=== PATIENT | female | born 1935 | race Caucasian/White ===

== ENCOUNTER 2019-08-12 10:28 | Outpatient (CLI) | payer MEDICARE ==
[2019-08-12 11:59] LABS: #Basophils 0.1 thou/uL (0.0-0.2); #Eosinphils 0.2 thou/uL (0.0-0.7); #Lymphocytes 2.3 thou/uL (1.20-3.40); #Monocytes 0.9 thou/uL (0.11-0.59); #Neutrophils 6.3 thou/uL (1.40-6.50); %Basophils 0.5 % (0.0-1.0); %Lymphocytes 23.8 % (21.0-51.0); %Monocytes 8.8 % (0.0-10.0); %Neutrophils 64.9 % (42.0-75.0); Hemoglobin 12.4 g/dL (12.0-16.0); Mean Corpuscular HGB CONC 33.4 g/dL (32.0-36.0); Mean Corpuscular Hemoglobin 29.7 pg (27.0-31.0); Mean Corpuscular Volume 88.8 fL (78.0-98.0); Mean Platelet Volume 7.1 fL (7.4-10.4); Platelet Count 307 thou/uL (130-400); RBC Distribution Width 12.3 % (11.5-14.5); Red Blood Cell (RBC) Count 4.17 mill/uL (4.20-5.40); White Blood Cell (WBC) Count 9.7 thou/uL (4.8-10.8)
[2019-08-12 12:28] LABS: ALT (SGPT) 11 U/L (8-55); AST (SGOT) 18 U/L (5-34); Albumin 4.1 g/dL (3.4-4.8); Alkaline Phosphatase 75 U/L (40-110); Anion Gap 12 mmol/L (10-20); BUN (Urea Nitrogen) 12 mg/dL (9.8-20.1); Bilirubin, Total 0.3 mg/dL (0.2-1.2); Calc. Creatinine Clearance 0 mL/min (70-130); Calcium 9.2 mg/dL (7.8-10.44); Carbon Dioxide 27 mmol/L (23-31); Chloride 96 mmol/L (98-107); Estimated GFR-MDRD 79; Globulin 3.4 g/dL (2.4-3.5); Glucose 88 mg/dL (83-110); Potassium 3.6 mmol/L (3.5-5.1); Protein, Total 7.5 g/dL (6.0-8.3); Sodium 131 mmol/L (136-145)
--- NOTE | 2019-08-14 23:10 | EKG ---
Test Reason : Blood Pressure : / mmHG Vent. Rate : 081 BPM Atrial Rate : 081 BPM P-R Int : 230 ms QRS Dur : 092 ms QT Int : 404 ms P-R-T Axes : 005 028 -03 degrees QTc Int : 469 ms Sinus rhythm with 1st degree A-V block Minimal voltage criteria for LVH, may be normal variant Cannot rule out Inferior infarct , age undetermined Abnormal ECG When compared with ECG of 22-FEB-2017 14:22, CO interval has increased Anterior infarct is now Present T wave inversion now evident in Anterior leads Confirmed by German RAJAN ([id number]) on 08/14/2019 11:09:49 PM Referred By: CORIN Confirmed By:German RAJAN
== END 2019-08-12 10:29 | disposition home or self-care (01) ==
LOC: LABBT 10:28
PROVIDERS: ATTEND Surgery
DX: Z01.818 Encounter for other preprocedural examination (principal); S81.852A Open bite, left lower leg, initial encounter
CPT/HCPCS: 80053; 85025; 87070; 87077; 87186; 87205; 93005; 93010

== ENCOUNTER 2019-08-13 05:37 | Day surgery (SDC) | payer MEDICARE ==
[2019-08-12 10:55] VITALS: BMI 33.4
[2019-08-13] MEDS ORDERED: Famotidine/PF 20 mg/2ml Vial ONE (06:49)
[2019-08-13] MEDS ORDERED: Fentanyl 100 MCG/2 ML VIAL ONE (07:03)
--- NOTE | 2019-08-13 11:01 | OP ---
DATE OF PROCEDURE: 08/13/2019 PREOPERATIVE DIAGNOSIS: Necrotic dog bite, left lower leg. PROCEDURE PERFORMED: Sharp debridement. INDICATIONS: This is an 83-year-old female, who is 5 weeks status post dog bite to the left lower leg, which she tried to treat at home with home remedies, became very foul smelling and deeper. Eventually, she sought medical attention. FINDINGS: A 15 x 10 cm necrotic wound to the left lower leg on the calf. This had necrosis all the way down to the muscle fascia. There were multiple tunnels of foul smelling necrotic tissue that had to be opened up. It was measured at 15 x 10 cm in diameter with a depth of 1.5 cm. DESCRIPTION OF PROCEDURE: After informed consent was obtained, the patient was taken to the operating room, given general mask anesthesia, placed in the lateral position. Her leg was prepped and draped in usual fashion. Using a curette, the necrotic tissue was removed. It gotten some pockets of purulent fluid. This was cultured, just a sequential removal of this tissue circumferentially. There were some tunnels that also were necrotic. The bridges were excised to open it up further. I got back to bleeding tissue circumferentially, then used the pulse cycle director to irrigate the wound. Hemostasis was achieved with electrocautery. Then, the wound VAC team placed a wound VAC. The patient tolerated the procedure well, transferred to Recovery in good condition. Job ID: [id number]
== END 2019-08-13 11:00 | disposition home or self-care (01) ==
LOC: SDC 05:37
PROVIDERS: ATTEND Surgery
PROC: 0KBT0ZZ Excision of Left Lower Leg Muscle, Open Approach (ICD-10-PCS; principal; 2019-08-13)
DX: S81.852A Open bite, left lower leg, initial encounter (principal); I96 Gangrene, not elsewhere classified; M19.90 Unspecified osteoarthritis, unspecified site; I10 Essential (primary) hypertension; K21.9 Gastro-esophageal reflux disease without esophagitis; Z79.82 Long term (current) use of aspirin; Z79.899 Other long term (current) drug therapy; Z88.2 Allergy status to sulfonamides; Z88.8 Allergy status to other drugs, medicaments and biological substances; Z98.890 Other specified postprocedural states; Z96.652 Presence of left artificial knee joint; W54.0XXA Bitten by dog, initial encounter
CPT/HCPCS: 87070; 87205; J0131; J0690; J3010; S0028

== ENCOUNTER 2019-08-15 07:48 | Outpatient (CLI) | payer MEDICARE ==
[2019-08-15] MEDS ORDERED: Sodium Chloride 0.9% 15 ML NEB ONE (18:00)
== END 2019-08-15 07:49 | disposition home or self-care (01) ==
LOC: WCC 07:48
PROVIDERS: ATTEND Family Medicine
DX: T81.89XD Other complications of procedures, not elsewhere classified, subsequent encounter (principal)
CPT/HCPCS: 97605; A4218

== ENCOUNTER 2019-08-18 10:01 | Outpatient (CLI) | payer MEDICARE ==
[2019-08-18] MEDS ORDERED: Sodium Chloride 0.9% 15 ML NEB ONE (18:00)
== END 2019-08-18 10:02 | disposition home or self-care (01) ==
LOC: WCC 10:01
PROVIDERS: ATTEND Family Medicine
DX: T81.89XD Other complications of procedures, not elsewhere classified, subsequent encounter (principal)
CPT/HCPCS: 97605; A4218

== ENCOUNTER 2019-08-21 08:08 | Outpatient (CLI) | payer MEDICARE ==
--- NOTE | 2019-08-21 12:44 | HP ---
HISTORY OF PRESENT ILLNESS: Ms. Estelle Villasenor is a very pleasant 83-year-old, accompanied by her son, who presents to the Wound Center for evaluation of a wound of the left lower leg subsequent to intraoperative debridement of a left lower leg wound from a dog bite. The patient underwent the preceding procedure on 08/13/[address] Darrel Stafford. Negative pressure therapy was initiated intraoperatively. At the time of discharge, the patient was referred to the Wound Center for assistance with dressing changes of the wound VAC. The patient states that she suffered the dog bite in July of this year. She states that when she sought medical attention from Dr. Subramanian, she was admitted immediately to [facility] where she received treatment for cellulitis. At a followup visit with Dr. Subramanian after discharge from [facility], the patient was referred immediately to General Surgery. The patient states that one day after being seen by Dr. Stafford, she underwent intraoperative debridement of her left lower leg wound as described above. PAST MEDICAL HISTORY: 1. Osteoarthritis. 2. Hypertension. 3. Gastroesophageal reflux disease. 4. Chronic low back pain. PAST SURGICAL HISTORY: 1. Tonsillectomy. 2. Uterine suspension. 3. Hysterectomy. 4. Surgery for right foot spur. 5. Surgery for left foot spur. 6. Arthroscopic surgery of right knee. 7. Left total knee arthroplasty. 8. Cholecystectomy. 9. Back surgery. 10. Bladder surgery. 11. Hemorrhoid surgery x2. 12. Right carpal tunnel surgery. 13. Left carpal tunnel surgery. 14. Left eye surgery. 15. Right eye surgery. 16. Right shoulder surgery. 17. L3 through L5 laminectomy. 18. Intraoperative debridement of left lower leg wound from dog bite as per HPI. MEDICATIONS: 1. Gabapentin. 2. Celecoxib. 3. Hydrochlorothiazide. 4. Premarin. 5. Potassium. 6. Omeprazole. 7. Amlodipine. 8. Iron. 9. Alprazolam. 10. Aspirin 81 mg. 11. Fish oil. 12. Multivitamin. 13. Calcium. ALLERGIES: ATENOLOL, FENOFIBRATE, LIDOCAINE, SULFA. SOCIAL HISTORY: Social history is negative for tobacco or EtOH use. FAMILY HISTORY: Family history is negative for diabetes mellitus. Family history is significant for coronary artery disease. The patient's mother and son were both diagnosed with coronary artery disease. PHYSICAL EXAMINATION: VITAL SIGNS: Temperature 97.7, pulse 81, respirations 19, and blood pressure 176/81. GENERAL: An 83-year-old female, lying on table in examination room, in no acute distress. HEENT: Normocephalic, atraumatic. NECK: No nuchal rigidity. CHEST: Clear to auscultation. CARDIOVASCULAR: Regular rate and rhythm. ABDOMEN: Soft. EXTREMITIES: A wound of the left lower leg is present, which measures approximately 7.0 x 4.5 cm. Granulation tissue is present within the wound margins. Necrotic and nonviable tissue present within the wound margin was debrided with an excisional full-thickness debridement with the use of scissors and a curette. No purulent drainage is associated with the wound. No cellulitis of the left lower leg is appreciated. No maceration of the skin of the periwound is noted. No significant edema of the left foot or lower leg is present on exam today. NEUROLOGIC: Grossly nonfocal. ASSESSMENT AND PLAN: 1. Wound of left lower leg as described above. Negative pressure therapy will be continued with dressing changes of the wound VAC here in the Wound Center. No antibiotics will be prescribed today based upon the appearance of the wound. I will see Ms. Villasenor again in 1 week. The patient and her son understand and are in agreement with the preceding treatment plan. 2. Osteoarthritis. 3. Hypertension. 4. Gastroesophageal reflux disease. 5. Chronic low back pain. Job ID: [id number]
[2019-08-21] MEDS ORDERED: Sodium Chloride 0.9% 15 ML NEB ONE (16:34)
[2019-08-21] MEDS ORDERED: Lidocaine 2% PF 100 mg/5 ml Syringe ONE (16:34)
== END 2019-08-21 08:09 | disposition home or self-care (01) ==
LOC: WCC 08:08
PROVIDERS: ATTEND Family Medicine
DX: T81.89XD Other complications of procedures, not elsewhere classified, subsequent encounter (principal); M19.90 Unspecified osteoarthritis, unspecified site; I10 Essential (primary) hypertension; K21.9 Gastro-esophageal reflux disease without esophagitis; M54.5 Low back pain; G89.29 Other chronic pain
CPT/HCPCS: 11042; 11045; 99203; A4218; G0463; J2001

== ENCOUNTER 2019-08-25 11:02 | Outpatient (CLI) | payer MEDICARE ==
[~2019-08-25 11:02] MED LIST: Sodium Chloride 0.9% 15 ML NEB ONE
== END 2019-08-25 11:03 | disposition home or self-care (01) ==
LOC: WCC 11:02
PROVIDERS: ATTEND Family Medicine
DX: T81.89XD Other complications of procedures, not elsewhere classified, subsequent encounter (principal)
CPT/HCPCS: A4218

== ENCOUNTER 2019-08-28 07:57 | Outpatient (CLI) | payer MEDICARE ==
[2019-08-28] MEDS ORDERED: Sodium Chloride 0.9% 15 ML NEB ONE (09:00)
== END 2019-08-28 07:58 | disposition home or self-care (01) ==
LOC: WCC 07:57
PROVIDERS: ATTEND Family Medicine
DX: T81.89XD Other complications of procedures, not elsewhere classified, subsequent encounter (principal)
CPT/HCPCS: A4218

== ENCOUNTER 2019-09-01 11:14 | Outpatient (CLI) | payer MEDICARE ==
[2019-09-01] MEDS ORDERED: Sodium Chloride 0.9% 15 ML NEB ONE (15:00)
== END 2019-09-01 11:15 | disposition home or self-care (01) ==
LOC: WCC 11:14
PROVIDERS: ATTEND Family Medicine
DX: T81.89XD Other complications of procedures, not elsewhere classified, subsequent encounter (principal)
CPT/HCPCS: A4218

== ENCOUNTER 2019-09-04 07:48 | Outpatient (CLI) | payer MEDICARE ==
[2019-09-04] MEDS ORDERED: Sodium Chloride 0.9% 15 ML NEB ONE (16:22)
== END 2019-09-04 07:49 | disposition home or self-care (01) ==
LOC: WCC 07:48
PROVIDERS: ATTEND Family Medicine
DX: T81.89XD Other complications of procedures, not elsewhere classified, subsequent encounter (principal)
CPT/HCPCS: 97605; A4218

== ENCOUNTER 2019-09-09 07:56 | Outpatient (CLI) | payer MEDICARE ==
[2019-09-09] MEDS ORDERED: Sodium Chloride 0.9% 15 ML NEB ONE (09:00)
== END 2019-09-09 07:57 | disposition home or self-care (01) ==
LOC: WCC 07:56
PROVIDERS: ATTEND Family Medicine
DX: T81.89XD Other complications of procedures, not elsewhere classified, subsequent encounter (principal)
CPT/HCPCS: A4218

== ENCOUNTER 2019-09-12 11:34 | Outpatient (CLI) | payer MEDICARE | END 2019-09-12 11:35 | disposition home or self-care (01) | LOC: WCC 11:34 | PROVIDERS: ATTEND Family Medicine | DX: T81.89XD Other complications of procedures, not elsewhere classified, subsequent encounter (principal) | CPT/HCPCS: A4218 ==

== ENCOUNTER 2019-09-15 08:35 | Outpatient (CLI) | payer MEDICARE ==
[2019-09-15] MEDS ORDERED: Sodium Chloride 0.9% 15 ML NEB ONE (09:00)
== END 2019-09-15 08:36 | disposition home or self-care (01) ==
LOC: WCC 08:35
PROVIDERS: ATTEND Family Medicine
DX: T81.89XD Other complications of procedures, not elsewhere classified, subsequent encounter (principal)
CPT/HCPCS: A4218

== ENCOUNTER 2019-12-06 20:39 | Inpatient (IN) | payer MEDICARE ==
[2019-12-06] MEDS ORDERED: Cefepime 2 GM VIAL ONE (21:32)
--- NOTE | 2019-12-06 21:36 | RAD ---
Chest AP view INDICATION: Chest pain COMPARISON: Chest 2 views dated March 10, 2015 FINDINGS: Lungs:There is scattered interstitial prominence, similar to prior examination suspicious for compone nt of fibrosis. There is a prominent hiatal hernia. No definite consolidation is evident. Cardiac silhouette:There is moderate cardiomegaly which is stable. Pulmonary vasculature:There is moderate pulmonary vascular congestion Pleural spaces:There are small bilateral pleural effusions Upper abdomen:No abnormality seen. Osseous structures: There is a right total shoulder replacement which is new. No acute fracture or mijares bluxation demonstrated. Additional findings:None. IMPRESSION: Findings suggesting mild CHF. Prominent hiatal hernia. Chronic lung changes are similar a ppearing
[2019-12-06 21:45] LABS: Hemoglobin 12.5 g/dL (12.0-16.0); Mean Corpuscular HGB CONC 32.1 g/dL (32.0-36.0); Mean Corpuscular Hemoglobin 28.8 pg (27.0-31.0); Mean Corpuscular Volume 89.6 fL (78.0-98.0); Mean Platelet Volume 7.4 fL (7.4-10.4); Platelet Count 230 thou/uL (130-400); RBC Distribution Width 13.3 % (11.5-14.5); Red Blood Cell (RBC) Count 4.35 mill/uL (4.20-5.40); White Blood Cell (WBC) Count 17.6 thou/uL (4.8-10.8)
[2019-12-06 22:02] LABS: Band 20 % (5-11); Lymphocytes 1 % (21-51); MDiff Complete? YES; Monocytes 1 % (0-10); Neutrophil 78 % (42-75)
[2019-12-06 22:03] LABS: ALT (SGPT) 16 U/L (8-55); AST (SGOT) 21 U/L (5-34); Albumin 3.7 g/dL (3.4-4.8); Alkaline Phosphatase 99 U/L (40-110); Anion Gap 14 mmol/L (10-20); BUN (Urea Nitrogen) 14 mg/dL (9.8-20.1); Bilirubin, Total 0.8 mg/dL (0.2-1.2); CK (CPK) 83 U/L (29-168); Calc. Creatinine Clearance 0 mL/min (70-130); Calcium 8.8 mg/dL (7.8-10.44); Carbon Dioxide 24 mmol/L (23-31); Chloride 96 mmol/L (98-107); Estimated GFR-MDRD 71; Globulin 2.9 g/dL (2.4-3.5); Glucose 97 mg/dL (83-110); Lipase 9 U/L (8-78); Potassium 3.2 mmol/L (3.5-5.1); Protein, Total 6.6 g/dL (6.0-8.3); Sodium 131 mmol/L (136-145)
[2019-12-06 22:24] LABS: CKMB 1.3 ng/mL (0-6.6)
[2019-12-06 23:08] LABS: Bilirubin Negative (Negative); Blood, Urine 1+ (Negative); Clarity Turbid (Clear); Glucose, Urine (Dipstick) Normal (Negative); Leukocyte 500 Leu/uL (Negative); Nitrite 1+ (Negative); Protein, Urine (Dipstick) 100 mg/dL (Neg-Trace); Squamous Epithelial 0-3 HPF (0-3); Urobilinogen Normal mg/dL (Less than 2); WBC/HPF Greater than 50 HPF (0-3)
[2019-12-06 23:18] LABS: Bacteria/HPF 1+ HPF (None Seen); Renal Epithelial 0-3 HPF (None Seen)
[2019-12-06] MEDS ORDERED: Acetaminophen 325 MG TAB PO PRN (23:20)
[2019-12-06] MEDS ORDERED: Calcium Carbonate 500 MG ChewTAB PO PRN (23:20)
[2019-12-06] MEDS ORDERED: Ondansetron ODT 4 MG TAB PO PRN (23:20)
--- NOTE | 2019-12-06 23:28 | PDOC.FPRHP ---
- History of Present Illness Chief Complaint: abdominal pain History of Present Illness: Patient is an 84F with PMHX of HTN, HLD, GERD, OA, chronic back pain that presents with abdominal pain. Per patient patient she has been having dysuria for the last 3 weeks that she was treating at home with Azo, and abdominal pain for the last several days. She also endorses subjective fever and chills yesterday. She denies any symptoms of cp, sob, swelling. She denies hematuria. She endorses looser stools than normal the last few days. Patient wears pads chronically for incontinence. ED Course: 1g vanc, 2g cefepime, 30ml/kg NS - Allergies/Adverse Reactions Allergies Allergy/AdvReac Type Severity Reaction Status Date / Time fenofibrate Allergy Unknown Headache Verified 08/12/19 10:55 Sulfa (Sulfonamide Allergy Unknown Verified 08/12/19 10:55 Antibiotics) atenolol AdvReac Unknown Verified 08/12/19 10:55 benzonatate AdvReac Unknown Verified 08/12/19 10:55 [From Tessalon Perles] lidocaine AdvReac Unknown Verified 08/12/19 10:55 mometasone furoate AdvReac Unknown Verified 08/12/19 10:55 [From Nasonex] orphenadrine AdvReac Unknown Verified 08/12/19 10:55 - Home Medications Medication Instructions Recorded Confirmed Type ALPRAZolam [Xanax] 0.5 mg PO DAILY PRN 03/11/15 12/07/19 History Aspirin [Mumtaz Chewable Aspirin] 81 mg PO DAILY 03/11/15 12/07/19 History Celecoxib [Celebrex] 200 mg PO DAILY 03/11/15 12/07/19 History Hydrochlorothiazide 1 tab PO DAILY 03/11/15 12/07/19 History Potassium Chloride 10 meq PO DAILY 03/11/15 12/07/19 History Amlodipine Besylate [amLODIPine 2.5 mg PO DAILY 02/22/17 12/07/19 History Besylate] Gabapentin 1 cap PO HS 02/22/17 12/07/19 History [place]-3/DHA/EPA/Fish Oil [Fish Oil 1 cap PO DAILY 02/22/17 12/07/19 History 1,000 mg Softgel] Omeprazole 50 mg PO DAILY 02/22/17 12/07/19 History Ferrous Gluconate [Iron] 27 mg PO DAILY 07/23/19 12/07/19 History Multivit With Calcium,Iron,Min 1 tablet PO DAILY 07/23/19 12/07/19 History [Multiple Vitamins For Women] Calcium Carbonate/Vitamin D3 1 tablet PO DAILY 08/12/19 12/07/19 History [Calcium 600 + Vitamin D] Rosuvastatin Calcium [Crestor] 20 mg PO DAILY 12/07/19 12/07/19 History - History PMHx: HTN, HLD, GERD, OA, chronic back pain PSHx: tonsillectomy, uterus lift, hysterectomy, L knee replacement, R ft sx, L ft sx, cholecystectomy, cardiac cath, back sx (multiple), carpal tunnel release r&l, eye sx r&l,R rotary cuff sx, cardiac cath FHx: non-contributory Social:no smoking, no etoh, no drugs - Review of Systems General: reports: fever/chills. denies: weight/appetite/sleep changes Eyes: denies: eye pain, vision changes ENT: denies: nasal congestion, rhinorrhea Respiratory: denies: cough, shortness of breath Cardiovascular: denies: chest pain, edema Gastrointestinal: reports: diarrhea, abdominal pain. denies: nausea, vomiting Genitourinary: reports: incontinence (chronic), dysuria Skin: denies: rashes, lesions Musculoskeletal: reports: pain (chronic back pain) Neurological: denies: syncope, seizure Psychological: denies: anxiety, depression - Vital signs BP: [107/50] HR: [110] RR: [18] Tmax: [99.9] Pox: [94]% on [RA] Wt: [75.4kg] - Physical Exam Constitutional: NAD, awake, alert and oriented HEENT: normocephalic and atraumatic, EOMI, MMM Neck: supple, FROM Chest: no-tender to palpation, no lesions Heart: RRR, normal S1/S2 Lungs: CTAB, no respiratory distress Abdomen: soft, bowel sounds present, other (ttp) Musculoskeletal: normal structure, normal tone Neurological: no focal deficit, normal sensation Skin: no rash/lesions, good turgor Heme/Lymphatic: no unusual bruising or bleeding, no purpura Psychiatric: normal mood and affect, good judgment and insight FMR H&P: Results - Labs Result Diagrams: 12/06/19 21:30 12/06/19 21:30 Lab results: WBC 17.6 thou/uL (4.8-10.8) H 12/06/19 21:30 Hgb 12.5 g/dL (12.0-16.0) 12/06/19 21:30 Hct 39.0 % (36.0-47.0) 12/06/19 21:30 MCV 89.6 fL (78.0-98.0) 12/06/19 21:30 Plt Count 230 thou/uL (130-400) 12/06/19 21:30 Band Neuts % (Manual) 20 % (5-11) H 12/06/19 21:30 Sodium 131 mmol/L (136-145) L 12/06/19 21:30 Potassium 3.2 mmol/L (3.5-5.1) L 12/06/19 21:30 Chloride 96 mmol/L (98-107) L 12/06/19 21:30 Carbon Dioxide 24 mmol/L (23-31) 12/06/19 21:30 BUN 14 mg/dL (9.8-20.1) 12/06/19 21:30 Creatinine 0.78 mg/dL (0.6-1.1) 12/06/19 21:30 Glucose 97 mg/dL (83-110) 12/06/19 21:30 Lactic Acid 1.7 mmol/L (0.5-2.2) 12/06/19 21:30 Calcium 8.8 mg/dL (7.8-10.44) 12/06/19 21:30 Total Bilirubin 0.8 mg/dL (0.2-1.2) 12/06/19 21:30 AST 21 U/L (5-34) 12/06/19 21:30 ALT 16 U/L (8-55) 12/06/19 21:30 Alkaline Phosphatase 99 U/L (40-110) 12/06/19 21:30 Creatine Kinase 83 U/L (29-168) 12/06/19 21:30 CK-MB (CK-2) 1.3 ng/mL (0-6.6) 12/06/19 21:30 B-Natriuretic Peptide 217.5 pg/mL (0-100) H 12/06/19 21:30 Serum Total Protein 6.6 g/dL (6.0-8.3) 12/06/19 21:30 Albumin 3.7 g/dL (3.4-4.8) 12/06/19 21:30 Lipase 9 U/L (8-78) 12/06/19 21:30 Urine Ketones Negative mg/dL (Negative) 12/06/19 22:51 Urine Blood 1+ (Negative) A 12/06/19 22:51 Urine Nitrite 1+ (Negative) A 12/06/19 22:51 Ur Leukocyte Esterase 500 Cee/uL (Negative) A 12/06/19 22:51 Urine RBC 7-10 HPF (0-3) A 12/06/19 22:51 Urine WBC Greater than 50 HPF (0-3) A 12/06/19 22:51 Ur Squamous Epith Cells 0-3 HPF (0-3) 12/06/19 22:51 Urine Bacteria 1+ HPF (None Seen) A 12/06/19 22:51 - Radiology Interpretation Chest x-ray Status: report reviewed by me (Mild CHF. Prominent hiatal hernia) FMR H&P: A/P - Problem List (1) Sepsis Current Visit: Yes Status: Resolved Code(s): A41.9 - SEPSIS, UNSPECIFIED ORGANISM (2) UTI (urinary tract infection) Current Visit: Yes Status: Acute (3) Hypokalemia Current Visit: Yes Status: Acute Code(s): E87.6 - HYPOKALEMIA (4) Chronic back pain Current Visit: Yes Status: Chronic Code(s): M54.9 - DORSALGIA, UNSPECIFIED; G89.29 - OTHER CHRONIC PAIN (5) HLD (hyperlipidemia) Current Visit: Yes Status: Chronic Code(s): E78.5 - HYPERLIPIDEMIA, UNSPECIFIED (6) Osteoarthritis Current Visit: Yes Status: Chronic Code(s): M19.90 - UNSPECIFIED OSTEOARTHRITIS, UNSPECIFIED SITE (7) GERD (gastroesophageal reflux disease) Current Visit: No Status: Chronic Code(s): K21.9 - GASTRO-ESOPHAGEAL REFLUX DISEASE WITHOUT ESOPHAGITIS (8) HTN (hypertension) Current Visit: No Status: Chronic Code(s): I10 - ESSENTIAL (PRIMARY) HYPERTENSION (9) Elevated troponin Current Visit: Yes Status: Acute Code(s): R79.89 - OTHER SPECIFIED ABNORMAL FINDINGS OF BLOOD CHEMISTRY - Plan Patient is an 84F with PMHX of HTN, HLD, GERD, OA, chronic back pain that is admitted for sepsis 2/2 UTI #Sepsis 2/2 UTI -patient has had dysuria for 3 weeks, treated with Azo at home -patient has had abd pain for last several days, subjective fever and chills x1- 2 days -WBC 17.6, tachycardic on admission -UA shows WBC, LE, Bacteria -started on vanc and cefepime in ED -will start on ceftriaxone -urine and blood cultures pending, will follow #Hypokalemia -potassium 3.2 -will replete and monitor #Elevated troponins -trop 0.087 -patient denies chest pain -will trend, though likely due to sepsis #HTN -BP 100s systolic, will hold home bp meds for now #HLD -continue home meds #GERD -continue home meds #OA #Chronic back pain -continue home meds Diet: HH DVT ppx: SCDs Dispo: obs for IV abx and monitoring; urine culture pending, will continue ceftriaxone and alter abx accordingly Code: Full pending palliative care consult PCP: Marilynn FMR H&P: Upper Level - Pertinent history 84 yo F here for evaluation of malaise for the last 3 days. She denies associated fever, but notes chills. She also complains of dysuria for about 3 weeks. She has been taking Azo daily to help with the pain, however she has not seen her PCP, Dr Subramanian, about symptoms. In the ER, labs were not completely resulted at the time of admission, however she was tachycardic and had a leukocystosis. She was given Vanc and Cefepime and admitted. Following admission UA showed positive LE, WBCs and bacteria. PMHx HTN GERD OA Anxiety Neuropathy FHx non contributory Social Hx No tobacco, etoh, or drugs - Pertinent findings See grad intern note for full ROS, PE, vitals, and labs ROS General Complains of chills and malaise. Denies fever HEENT denies sore throat or ear pain CV Denies CP, diaphoresis or palpitations Resp Denies SOB or cough GI Complains of lower abdominal pain. Denies n/v complains of dysuria Neuro denies weakness or numbness. PE General A&O x4 HEENT NCAT CV RRR, no murmur Resp CTA Abd suprapubic tenderness. No CVAT. Abd is soft. No guarding Extremities No edema Neuro no focal deficits - Plan Date/Time: 12/06/19 5121 I, Darrel Berry, , have evaluated this patient and agree with findings/plan as outlined by grad intern resident. Pertinent changes/additions are listed here. 1.Sepsis secondary to UTI -Admit to medicine -Start Rocephin, dc vanc and cefepime -Blood and urine cx pending -IVF -Vitals are stable 2.Elevated trop -Likely related to sepsis. Will trend. No CP, low concern for ACS 3.Hypokalemia -Replace PO and recheck in am See grad intern note for management of chronic meds Diet Heart healthy Code Full pending palliative care consult PPx SCD Dispo: pt is in fair condition. Will admit for IV abx. Length of stay is likely 48 hours Addendum - Attending - Attending Attestation Date/Time: 12/07/19 9042 I personally evaluated the patient and discussed the management with Dr. Crockett. I agree with the History, Examination, Assessment and Plan documented above with any addition or exceptions noted below. The patient presents with abdominal pain and urinary frequency and urgency. The patient has been found to have a UTI. Urine culture is pending. Will treat with rocephin. Pt with no clinical sings of volume overload.
[2019-12-06] MEDS ORDERED: Potassium Chloride 20 MEQ TAB PO SCH (23:45)
[2019-12-07 01:22] VITALS: BMI 25.2
[2019-12-07 01:51] LABS: Troponin I 0.088 ng/mL (< 0.028)
[2019-12-07] MEDS ORDERED: Potassium Chloride 10 MEQ TAB PO SCH (08:00)
[2019-12-07] MEDS: Aspirin Chewable 81 MG TAB PO SCH (08:22)
[2019-12-07] MEDS: Calcium Carbonate + Vit D 1 TAB PO SCH (08:25)
[2019-12-07] MEDS: CeleCOXIB 100 MG CAP PO SCH (08:25)
[2019-12-07] MEDS: Multivitamin W/ Minerals 1 TAB PO SCH (08:26)
[2019-12-07] MEDS: Rosuvastatin 20 MG TAB PO SCH (08:26)
--- NOTE | 2019-12-07 08:42 | PDOC.FM ---
- Subjective Subjective: 84 yo female seen at bedside this AM. Patient reports she feels well and slept well overnight. She notes that she enjoyed the urination suction device. She reports that she has a doctor's appointment on Sunday afternoon that she can't miss. No other acute events overnight. - Objective Vital Signs & Weight: Vital Signs (12 hours) Temp Pulse Resp BP Pulse Ox 12/07/19 07:27 98.7 F 105 H 16 138/75 94 L 12/07/19 03:47 98.1 F 86 16 116/65 95 12/07/19 01:19 98.2 F 111 H 18 102/61 94 L Weight Weight 75.432 kg Result Diagrams: 12/06/19 21:30 12/07/19 09:02 Phys Exam - Physical Examination Constitutional: NAD HEENT: PERRLA Respiratory: no wheezing, clear to auscultation bilateral Cardiovascular: RRR, no significant murmur Gastrointestinal: soft, non-tender, positive bowel sounds Musculoskeletal: no edema Neurological: moves all 4 limbs Psychiatric: A&O x 3 Skin: no rash, cap refill <2 seconds Dx/Plan (1) Sepsis Code(s): A41.9 - SEPSIS, UNSPECIFIED ORGANISM Status: Resolved (2) UTI (urinary tract infection) Status: Acute (3) HTN (hypertension) Code(s): I10 - ESSENTIAL (PRIMARY) HYPERTENSION Status: Chronic (4) Hypokalemia Code(s): E87.6 - HYPOKALEMIA Status: Acute - Plan Plan: Sepsis 2/2 UTI - Sepsis resolved - Continue Rocephin - Urine culture pending HTN - BP meds held initially due to hypotension - Restart when appropriate Hypokalemia - Repleted overnight - Recheck BMP Disposition: Stable, will await culture results for likely discharge tomorrow. Addendum - Attending - Attending Attestation Date/Time: 12/07/19 4098 I personally evaluated the patient and discussed the management with Dr. Gongora. I agree with the History, Examination, Assessment and Plan documented above with any addition or exceptions noted below. Pt's blood cultures are now positive for e-coli. Pt has bacteremia 2/2 e.coli uti. Will continue rocephin. Awaiting sensitivities.
[2019-12-07] MEDS ORDERED: Fish Oil 1,000 MG CAP PO SCH (09:00)
[2019-12-07] MEDS: cefTRIAXone\\ROCEPHIN 1 GM in Sodium Chloride 0.9% 100 ML IVPB SCH (09:27)
[2019-12-07 09:35] LABS: Anion Gap 10 mmol/L (10-20); BUN (Urea Nitrogen) 13 mg/dL (9.8-20.1); Calc. Creatinine Clearance 75 mL/min (70-130); Carbon Dioxide 26 mmol/L (23-31); Chloride 100 mmol/L (98-107); Estimated GFR-MDRD 81; Glucose 89 mg/dL (83-110); Potassium 3.2 mmol/L (3.5-5.1); Sodium 133 mmol/L (136-145)
[2019-12-07] MEDS: Fish Oil 1,000 MG CAP PO SCH (10:41)
[2019-12-07] MEDS: Gabapentin 300 MG CAP PO SCH (20:02)
--- NOTE | 2019-12-08 06:44 | PDOC.FM ---
- Subjective Subjective: Not feeling very good this morning. No overnight events. Reports decreased appetite. Denies dysuria, SOB. - Objective MAR Reviewed: Yes Vital Signs & Weight: Vital Signs (12 hours) Temp Pulse Resp BP Pulse Ox 12/08/19 00:02 99.1 F 95 16 149/72 H 93 L 12/07/19 19:44 99.2 F 91 16 149/73 H 92 L Weight Weight 75.432 kg I&O: 12/06/19 12/07/19 12/08/19 06:59 06:59 06:59 Intake Total 340 Output Total 250 Balance 90 Result Diagrams: 12/06/19 21:30 12/08/19 07:26 Phys Exam - Physical Examination Constitutional: NAD HEENT: moist MMs Neck: supple bibasilar crackles Cardiovascular: RRR, no significant murmur Gastrointestinal: soft, non-tender Musculoskeletal: pulses present Neurological: moves all 4 limbs Psychiatric: normal affect, A&O x 3 Skin: normal turgor Dx/Plan - Plan Plan: E coli UTI - Transition from Rocephin to Cefdinir for extended course. - Urine culture & Blood Cx: E coli resistant to Bactrim, Ampicillin. Int: Augmentin Sepsis 2/2 E coli Bacterimia - Sepsis resolved E coli Bacterimeia - Manage as above HTN - Resume home meds Hypokalemia - 3.0. Ordered Mg. Replace with PO Code Status: FULL DVT ppx: SCDs
[2019-12-08 08:04] LABS: Anion Gap 10 mmol/L (10-20); BUN (Urea Nitrogen) 13 mg/dL (9.8-20.1); Calc. Creatinine Clearance 76 mL/min (70-130); Calcium 8.3 mg/dL (7.8-10.44); Carbon Dioxide 25 mmol/L (23-31); Chloride 101 mmol/L (98-107); Estimated GFR-MDRD 83; Glucose 87 mg/dL (83-110); Sodium 133 mmol/L (136-145)
[2019-12-08] MEDS ORDERED: Amlodipine 5 MG TAB PO SCH (09:00)
[2019-12-08] MEDS: Fish Oil 1,000 MG CAP PO SCH (09:25)
[2019-12-08] MEDS: Ferrous Sulfate 325 MG TAB PO SCH (09:25)
[2019-12-08] MEDS: Hydrochlorothiazide 25 MG TAB PO SCH (09:25)
[2019-12-08] MEDS: CeleCOXIB 100 MG CAP PO SCH (09:25)
[2019-12-08] MEDS: Rosuvastatin 20 MG TAB PO SCH (09:25)
[2019-12-08] MEDS: Aspirin Chewable 81 MG TAB PO SCH (09:26)
[2019-12-08] MEDS: Multivitamin W/ Minerals 1 TAB PO SCH (09:26)
[2019-12-08] MEDS: Calcium Carbonate + Vit D 1 TAB PO SCH (09:27)
[2019-12-08] MEDS ORDERED: Potassium Chloride 20 MEQ TAB PO SCH (11:00)
--- NOTE | 2019-12-08 11:14 | PRG ---
DATE OF SERVICE: 12/08/2019 SUBJECTIVE: Ms. Villasenor is a pleasant 84-year-old white female, who was admitted with symptoms of urinary tract infection including initially a high fever and white count. She subsequently grew E. coli from urine and blood. She has been started on broad-spectrum antibiotics i.e. Rocephin and is much improved. Her white count is 17,600, hemoglobin 12.5, hematocrit is 39. Chemistries; sodium 131, potassium 3.2, chloride 96, bicarb 24, BUN 14, and creatinine 0.78. Her urinalysis initially showed positive blood, positive nitrites, positive leukocyte esterase, greater than 50 white cells per high-power field. As stated above, grew out E. coli. Subsequent blood culture also grew out E. coli. She does have a left knee prosthesis, so I think we should give her another day of IV antibiotics before discharge. She was admitted with a high fever dropping down at 99, currently 98.8. Clinically, she looks improved as well. Job ID: [id number]
[2019-12-08] MEDS: cefTRIAXone\\ROCEPHIN 1 GM in Sodium Chloride 0.9% 100 ML IVPB SCH (11:25)
[2019-12-08] MEDS ORDERED: Magnesium 2 GM/50 ML 2 GM in Premix Bag 1 BAG IVPB SCH (12:45)
[2019-12-08] MEDS: Potassium Chloride 20 MEQ TAB PO SCH (17:38)
[2019-12-08] MEDS: Gabapentin 300 MG CAP PO SCH (20:01)
[2019-12-09 05:12] LABS: #Eosinphils 0.1 thou/uL (0.0-0.7); #Lymphocytes 1.5 thou/uL (1.20-3.40); #Monocytes 1.1 thou/uL (0.11-0.59); #Neutrophils 6.5 thou/uL (1.40-6.50); %Basophils 0.4 % (0.0-1.0); %Eosinophils 0.7 % (0.0-10.0); %Lymphocytes 16.2 % (21.0-51.0); %Monocytes 11.5 % (0.0-10.0); %Neutrophils 71.3 % (42.0-75.0); Hemoglobin 11.5 g/dL (12.0-16.0); Mean Corpuscular HGB CONC 33.4 g/dL (32.0-36.0); Mean Corpuscular Hemoglobin 29.3 pg (27.0-31.0); Mean Corpuscular Volume 87.8 fL (78.0-98.0); Mean Platelet Volume 7.5 fL (7.4-10.4); Platelet Count 200 thou/uL (130-400); RBC Distribution Width 13.2 % (11.5-14.5); Red Blood Cell (RBC) Count 3.94 mill/uL (4.20-5.40); White Blood Cell (WBC) Count 9.2 thou/uL (4.8-10.8)
[2019-12-09 05:39] LABS: Anion Gap 11 mmol/L (10-20); BUN (Urea Nitrogen) 9 mg/dL (9.8-20.1); Calc. Creatinine Clearance 79 mL/min (70-130); Calcium 8.6 mg/dL (7.8-10.44); Carbon Dioxide 27 mmol/L (23-31); Chloride 96 mmol/L (98-107); Estimated GFR-MDRD 87; Glucose 110 mg/dL (83-110); Magnesium 1.5 mg/dL (1.6-2.6); Potassium 3.8 mmol/L (3.5-5.1); Sodium 130 mmol/L (136-145)
--- NOTE | 2019-12-09 06:50 | PDOC.FM ---
- Subjective Subjective: Doing well. No overnight events. Feeling a little weak. Ate a good breakfast. Incontinent of urine which is her baseline. BM yesterday. - Objective MAR Reviewed: Yes Vital Signs & Weight: Vital Signs (12 hours) Temp Pulse Resp BP Pulse Ox 12/09/19 03:00 99.0 F 82 16 158/80 H 93 L 12/08/19 20:00 98.7 F 83 18 166/80 H 94 L Weight Weight 75.432 kg I&O: 12/07/19 12/08/19 12/09/19 06:59 06:59 06:59 Intake Total 1040 1460 Output Total 650 1600 Balance 390 -140 Result Diagrams: 12/09/19 04:43 12/09/19 04:43 Phys Exam - Physical Examination Constitutional: NAD HEENT: moist MMs Neck: supple Respiratory: no wheezing, clear to auscultation bilateral Cardiovascular: RRR, no significant murmur Gastrointestinal: soft, non-tender Musculoskeletal: no edema Neurological: moves all 4 limbs Psychiatric: normal affect, A&O x 3 Skin: normal turgor Dx/Plan - Plan Plan: E coli UTI - Transition from Rocephin to Cefdinir for extended course. Likely dc today. - Urine culture & Blood Cx: E coli resistant to Bactrim, Ampicillin. Int: Augmentin Sepsis 2/2 E coli Bacterimia - Sepsis resolved E coli Bacterimeia - Manage as above HTN - Continue home meds Hypomagnesemia - Continue IV replacement Hypokalemia, resolved Code Status: FULL DVT ppx: SCDs
[2019-12-09] MEDS ORDERED: Magnesium Sulfate 3 GM in Sodium Chloride 0.9% 100 ML IVPB SCH (07:00)
[2019-12-09] MEDS: Fish Oil 1,000 MG CAP PO SCH (08:52)
[2019-12-09] MEDS: Potassium Chloride 20 MEQ TAB PO SCH (08:52)
[2019-12-09] MEDS: CeleCOXIB 100 MG CAP PO SCH (08:52)
[2019-12-09] MEDS: Ferrous Sulfate 325 MG TAB PO SCH (08:52)
[2019-12-09] MEDS: Hydrochlorothiazide 25 MG TAB PO SCH (08:53)
[2019-12-09] MEDS: Rosuvastatin 20 MG TAB PO SCH (08:53)
[2019-12-09] MEDS: Multivitamin W/ Minerals 1 TAB PO SCH (08:53)
[2019-12-09] MEDS: Calcium Carbonate + Vit D 1 TAB PO SCH (08:54)
[2019-12-09] MEDS: Aspirin Chewable 81 MG TAB PO SCH (08:54)
[2019-12-09] MEDS ORDERED: Cefdinir 300 MG CAP PO SCH (09:00)
[2019-12-09] MEDS ORDERED: Amlodipine 5 MG TAB PO SCH (09:00)
--- NOTE | 2019-12-09 10:31 | PRG ---
DATE OF SERVICE: 12/09/2019 Ms. Villasenor is awake, alert, very pleasant this morning. She is having no distress. We elected to hold one more day to give her another dose of IV antibiotics given her left knee prosthesis. In the event, she is afebrile, clinically much improved. Both blood and urine cultures grew a kilgore-sensitive E coli and she is on appropriate antibiotic management. Likely home or SNF today. Job ID: [id number]
[2019-12-09 11:25] VITALS: BP 137/83
[2019-12-09 16:07] VITALS: TEMP 98.5
--- NOTE | 2019-12-09 19:49 | DIS ---
DATE OF ADMISSION: 12/06/2019 DATE OF DISCHARGE: 12/09/2019 RESIDENT: Rosalva Lee, PGY-2 ADMITTING ATTENDING: Pippa Campuzano MD DISCHARGE ATTENDING: Silviano Romero MD. PROCEDURES: Chest x-ray on 12/06/2019, findings suggestive of mild CHF, prominent hiatal hernia. Chronic lung changes are similar appearing. PRIMARY DIAGNOSES: 1. Sepsis secondary to Escherichia coli bacteremia, resolved. 2. Escherichia coli urinary tract infection. SECONDARY DIAGNOSES: 1. Escherichia coli bacteremia. 2. Hypertension. 3. Hypomagnesemia. 4. Hypokalemia, resolved. DISCHARGE MEDICATIONS: 1. Potassium chloride 10 mEq p.o. daily. 2. Cefdinir 300 mg b.i.d. x7 days. New medication. 3. Amlodipine 2.5 mg daily. 4. Aspirin 81 mg daily. 5. Calcium with vitamin D one tablet p.o. daily. 6. Celebrex 200 mg daily. 7. Fish oil 1000 mg daily. 8. Gabapentin 300 mg at bedtime. 9. Hydrochlorothiazide 25 mg daily. 10. Multivitamin one tablet daily. 11. Omeprazole 40mg daily 12. Rosuvastatin 20 mg daily. 13. Xanax 0.5 mg daily. 14. Ferrous sulfate 325 mg daily. DISCONTINUED MEDICATIONS: None. HISTORY OF PRESENT ILLNESS/HOSPITAL COURSE: Ms. Villasenor is an 84-year-old female with past medical history of hypertension, hyperlipidemia, GERD, osteoarthritis, chronic back pain, presented with abdominal pain. Reports dysuria that she has been treating with Azo, and subjective fever and chills. She was noted to have a UA consistent with infection. In the ED, she was given 1 g vancomycin, 2 g cefepime, 30 mL/kg bolus of normal saline. She met sepsis criteria with white blood cell count of 17.6 and tachycardia. She was continued on ceftriaxone. Urine cultures were positive for E coli, resistant to ampicillin and Bactrim and intermediate to Augmentin. Blood cultures were positive for E coli with the same sensitivities. White blood cell count trended down to 9.2, the day of discharge. Initial sodium 131 and 130 at discharge. She was noted to have hypokalemia 3.2, 3.0, 3.8. Magnesium was checked and noted to be 1.3. She was given 2 g of magnesium, increased to 1.5, given 3 g at discharge. This will need to be rechecked by her primary care doctor in a couple of days. She was noted to have an elevated troponin 0.087, 0.088. BNP 217.5. In regard to her hypertension, once blood pressure became elevated, her home medications were restarted. DISPOSITION: Stable. DISCHARGE INSTRUCTIONS: 1. Location: Home with home health. 2. Diet: Low-sodium. 3. Activity: No restrictions. 4. Follow up with PCP Dr. Subramanian within 3 days for recheck of magnesium and potassium. Job ID: [id number] MTDD
--- NOTE | 2019-12-10 06:31 | PQF ---
[employer] Electrocardiograph Repairer Crystal Reports [employer] [facility] HealthCareLISSA IMTIAZ BARRIENTOS [id number] [place] [id number] CLINICAL DOCUMENTATION CLARIFICATION FORM: POST DISCHARGE Addendum to original discharge summary date: ____ Late entry note date: __ DATE: 12/10/2019 ATTN:IMTIAZ DOWLING Please exercise your independent, professional judgment in responding to the clarification form. Clinical indicators are provided on the bottom of this form for your review Please check appropriate box(s): AMI TYPE: [ ] Acute Coronary Syndrome (ACS) without Acute WV meaning Unstable Angina [ ] NSTEMI (WV type I) [ ] NSTEMI due to Demand Ischemia (AMI Type II) [ ] Demand Ischemia without WV [ ] STEMI (please also specify site and arterysee below) If STEMI, SITE:[ ] Anterior [ ] Apical [ ] Lateral [ ] Inferior [ ] Posterior [ ] Q Wave [ ] Septal [ ] Unable to Determine SPECIFIC ARTERY (Based on site) [ ] Left Main Coronary[ ] Diagonal [ ] Left Anterior Descending[ ] Oblique Marginal [ ] Right Coronary Artery[ ] Unable to Determine [ ] Left Circumflex ONSET OF INFARCTION: [ ] Onset Less than 4 weeks of admission [ ] Onset Greater than 4 weeks of admission [ ] Unable to determine DUE TO (if applicable): [ ] Stent occlusion [ ] In-Stent stenosis [ ] Occlusion of coronary bypass graft [ ] Complication of PCI [ ] Underlying CAD [ ] Other [ ] Other diagnosis [ ] Unable to determine In addition, please specify: Present on Admission (POA): [ ] Yes [ ] No [ ] Unable to determine CLINICAL INDICATORS - SIGNS / SYMPTOMS / LABS Elevated Troponin level 0.087 on 12/06 and 0.088 on 12/07 - Docuemnted in Laboratory Elevated troponin -0.087 likely due to sepsis - Documented in H&P on 12/06 by Bon Owen Elevated troponin likely related to sepsis, will trend , low concern for ACS - Documented in H&P on 12/06 by Bon Owen patient denies chest pain - Documented in H&P on 12/06 by Bon Owen RISKS: Sepsis - Documented in DS on 12/09 by Rosalva Lee UTI with E coli - Documented in DS on 12/09 by Rosalva Lee TREATMENTS: Will tend troponin - Documented in H&P on 12/06 by Bon Owen Aspirin 81mg - Documented in Medication report (This form is maintained as a part of the permanent medical record) 2014 [email or web address] All Rights Reserved [email or web address] [phone] MTDD
== END 2019-12-09 16:08 | disposition home or self-care (01) | DRG 872 ==
LOC: ERS 20:39 → SURG A 22:43 → ERS 12-07 00:44 → UNDOADMIN 12-07 01:01 → SURG A 12-07 01:01
PROVIDERS: ADMIT Family Medicine; ATTEND Family Medicine
DX: A41.51 Sepsis due to Escherichia coli [E. coli] (principal); N39.0 Urinary tract infection, site not specified; Z88.2 Allergy status to sulfonamides; Z88.8 Allergy status to other drugs, medicaments and biological substances; I10 Essential (primary) hypertension; K21.9 Gastro-esophageal reflux disease without esophagitis; E78.5 Hyperlipidemia, unspecified; M19.91 Primary osteoarthritis, unspecified site; M54.9 Dorsalgia, unspecified; G89.29 Other chronic pain; Z79.899 Other long term (current) drug therapy; Z79.82 Long term (current) use of aspirin; Z90.710 Acquired absence of both cervix and uterus; Z96.652 Presence of left artificial knee joint; Z90.49 Acquired absence of other specified parts of digestive tract; E87.6 Hypokalemia; F41.9 Anxiety disorder, unspecified; E83.42 Hypomagnesemia
CPT/HCPCS: 36415; 51701; 71045; 80048; 80053; 81003; 81015; 82550; 82553; 83605; 83690; 83735; 83880; 84484; 85025; 87040; 87077; 87086; 87149; 87186; 87804; 96365; 96367; A4353; J0692; J0696; J3370; J3475; J3490

== ENCOUNTER 2020-05-12 10:07 | Inpatient (IN) | payer MEDICARE, OTHER ==
[2020-05-12 11:18] LABS: #Basophils 0.1 thou/uL (0.0-0.2); #Eosinphils 0.2 thou/uL (0.0-0.7); #Lymphocytes 2.1 thou/uL (1.20-3.40); #Monocytes 1.1 thou/uL (0.11-0.59); #Neutrophils 14.3 thou/uL (1.40-6.50); %Basophils 0.5 % (0.0-1.0); %Eosinophils 1.2 % (0.0-10.0); %Lymphocytes 11.9 % (21.0-51.0); %Monocytes 6.1 % (0.0-10.0); %Neutrophils 80.3 % (42.0-75.0); Hemoglobin 10.2 g/dL (12.0-16.0); Mean Corpuscular HGB CONC 32.1 g/dL (32.0-36.0); Mean Corpuscular Hemoglobin 28.2 pg (27.0-31.0); Mean Corpuscular Volume 87.7 fL (78.0-98.0); Mean Platelet Volume 6.7 fL (7.4-10.4); Platelet Count 580 thou/uL (130-400); Red Blood Cell (RBC) Count 3.62 mill/uL (4.20-5.40); White Blood Cell (WBC) Count 17.8 thou/uL (4.8-10.8)
[2020-05-12 11:27] LABS: INR-International Normal Ratio 1.1; PTT 38.1 sec (22.9-36.1); Prothrombin Time 14.5 sec (12.0-14.7)
--- NOTE | 2020-05-12 11:34 | RAD ---
PORTABLE CHEST 1 VIEW: Date: 05/12/2020 Time: 1032 hours HISTORY: Dyspnea. Sepsis. COMPARISON: Previous day. FINDINGS/IMPRESSION: Allowing for differences in technique, no significant interval change is seen. POS: [facility]
[2020-05-12] MEDS ORDERED: Azithromycin 500 MG VIAL ONE (11:35)
[2020-05-12] MEDS ORDERED: cefTRIAXone\\ROCEPHIN 1 GM VIAL ONE (11:35)
[2020-05-12] MEDS ORDERED: Sodium Chloride 0.9% 100 ML ONE (11:35)
[2020-05-12] MEDS ORDERED: Dexamethasone 10 MG/ML VIAL ONE (11:35)
[2020-05-12 11:40] LABS: ALT (SGPT) 31 U/L (8-55); AST (SGOT) 31 U/L (5-34); Albumin 3.3 g/dL (3.4-4.8); Alkaline Phosphatase 102 U/L (40-110); Anion Gap 16 mmol/L (10-20); BUN (Urea Nitrogen) 21 mg/dL (9.8-20.1); Bilirubin, Total 0.8 mg/dL (0.2-1.2); Calc. Creatinine Clearance 0 mL/min (70-130); Calcium 8.8 mg/dL (7.8-10.44); Carbon Dioxide 26 mmol/L (23-31); Chloride 96 mmol/L (98-107); Estimated GFR-MDRD 79; Globulin 3.1 g/dL (2.4-3.5); Glucose 147 mg/dL (83-110); Potassium 4.5 mmol/L (3.5-5.1); Protein, Total 6.4 g/dL (6.0-8.3); Sodium 133 mmol/L (136-145)
[2020-05-12 12:23] LABS: Bilirubin Negative (Negative); Blood, Urine Negative (Negative); Clarity Clear (Clear); Glucose, Urine (Dipstick) Normal (Negative); Ketone, Urine Negative (Negative); Leukocyte Negative Leu/uL (Negative); Nitrite Negative (Negative); Protein, Urine (Dipstick) Negative (Neg-Trace); Specific Gravity, Urine 1.014 (1.002-1.036); Urobilinogen Normal mg/dL (Less than 2)
[2020-05-12] MEDS ORDERED: Ondansetron PF 4 MG/2 ML Vial IVP PRN (14:44)
[2020-05-12] MEDS ORDERED: Ondansetron ODT 4 MG TAB SL PRN (14:44)
[2020-05-12] MEDS ORDERED: HYDROcodone/Acetaminophen 5/325 mg Tablet PO PRN ×2 (14:44)
[2020-05-12] MEDS ORDERED: Acetaminophen 325 MG TAB PO PRN (14:44)
[2020-05-12] MEDS ORDERED: guaiFENesin 100 MG/5 ML UDCUP PO PRN (15:12)
[2020-05-12] MEDS ORDERED: Vicks VapoRub 50 gm Jar TOP PRN (15:12)
[2020-05-12] MEDS ORDERED: Senokot S 8.6-50 MG TAB PO PRN (15:15)
[2020-05-12] MEDS ORDERED: Ondansetron ODT 4 MG TAB PO PRN (15:15)
[2020-05-12] MEDS ORDERED: Calcium Carbonate 500 MG ChewTAB PO PRN (15:15)
--- NOTE | 2020-05-12 15:20 | PDOC.FPRHP ---
- History of Present Illness Chief Complaint: SOB, Hypoxia History of Present Illness: Patient is an 84 yo female who presents to emergency department with complaint of SOB and cough. She says these have been going on for "awhile". Denies having had any fever, headache, chest pain, sore throat, GI issues, myalgias. Patient is somewhat of a poor historian. Patient had total right knee replacement on April [address] Pierre. Was admitted at [facility] for 3 days then transitioned to [facility] inpatient rehab where Dr. Subramanian has been seeing her at that facility. The rest of this history is taken from phone conversation with him. Dr. Subramanian states that patient was noted to have a cough around May 01 and so he obtained CXR which showed some airspace opacities, he followed with serial CXRs which revealed signs suspicious for an atypical pneumonia. Patient has never had a fever, with max temp at [facility] facility being 99.3F. Patient did not require any oxygen initially, denies any hx of asthma or COPD and has never required home O2. Last night patient was noted to be tachypneic with respiratory rate in 30s. Checked O2 sat and was 69%. Nursing staff initially placed N/C with improvement of sats into low 80s. Then early this morning Dr. Subramanian placed patient on Venti-Mask at 14L, 55% FiO2 with improvement of sats to upper 80s. At that time Dr. Subramanian decided to transfer patient to [facility] for further evaluation. CXR was stable compared to previous images in past week. Patient currently still complaining of SOB. O2 supplementation at 4L via N/C with sats at 91-93%. Of note, on May 01 patient was noted to have a UTI. She was initially treated with 3 days of Bactrim. Culture resulted May 04 with E. Coli resistant to Bactrim, Levaquin, and Cipro. Patient was switched to Omnicef for 7 days, then given Doxycycline for 3 days (until today). UA today in ED was normal. Dr. Subramanian states that right knee elizabeth were due to come out either today or tomorrow. ED Course: Blood cultures sent. Given Dexamethasone 10 mg IVP, 1L NS bolus, Azithromycin, Rocephin. - Allergies/Adverse Reactions Allergies Allergy/AdvReac Type Severity Reaction Status Date / Time fenofibrate AdvReac Mild Rash Verified 05/12/20 15:54 atenolol AdvReac Unknown Rash Verified 05/12/20 15:54 benzonatate AdvReac Unknown Rash Verified 05/12/20 15:54 [From Tessalon Perles] lidocaine AdvReac Unknown Rash Verified 05/12/20 15:54 mometasone furoate AdvReac Unknown Rash Verified 05/12/20 15:54 [From Nasonex] orphenadrine AdvReac Unknown Rash Verified 05/12/20 15:54 Sulfa (Sulfonamide AdvReac Unknown Rash Verified 05/12/20 15:54 Antibiotics) - Home Medications Medication Instructions Recorded Confirmed Type ALPRAZolam [Xanax] 0.5 mg PO DAILY PRN 03/11/15 05/12/20 History Hydrochlorothiazide 1 tab PO DAILY 03/11/15 05/12/20 History Gabapentin 1 cap PO HS 02/22/17 05/12/20 History Omeprazole 20 mg PO DAILY 02/22/17 05/12/20 History Multivit With Calcium,Iron,Min 1 tablet PO DAILY 07/23/19 05/12/20 History [Multiple Vitamins For Women] Rosuvastatin Calcium [Crestor] 20 mg PO DAILY 12/07/19 05/12/20 History Ferrous Sulfate [Feosol] 325 mg PO DAILY #30 tab 12/08/19 05/12/20 Rx Fish Oil 1,000 mg PO DAILY cap 12/08/19 05/12/20 Rx Potassium Chloride 10 meq PO DAILY #10 tab 12/09/19 05/12/20 Rx Acetaminophen W/ Codeine 1 tab PO Q4H PRN tab 04/29/20 05/12/20 Rx [Acetaminophen/Codeine #3] Acetaminophen W/ Codeine 2 tab PO Q4H PRN tab 04/29/20 05/12/20 Rx [Acetaminophen/Codeine #3] Acetaminophen [Tylenol Regular 650 mg PO Q4H PRN tab 04/29/20 05/12/20 Rx Strength] Amlodipine [Norvasc] 2.5 mg PO DAILY tab 04/29/20 05/12/20 Rx Aspirin [Ecotrin Low Strength] 81 mg PO BID tab 04/29/20 05/12/20 Rx Ferrous Gluconate [Fergon] 324 mg PO BID tab 04/29/20 05/12/20 Rx - History PMHx: HTN, HLD, GERD, OA, chronic back pain PSHx: R knee replacement (04/[address] Pierre), tonsillectomy, uterus lift, hysterectomy, L knee replacement, R ft sx, L ft sx, cholecystectomy, cardiac cath, back sx (multiple), carpal tunnel release r&l, eye sx r&l,R rotary cuff sx , cardiac cath FHx: non-contributory Social: no smoking, no etoh, no drugs - Review of Systems General: denies: fever/chills, fatigue Eyes: denies: vision changes ENT: denies: nasal congestion Respiratory: reports: cough, shortness of breath. denies: congestion Cardiovascular: denies: chest pain, palpitation, edema Gastrointestinal: denies: nausea, vomiting, diarrhea, constipation, abdominal pain Genitourinary: denies: dysuria Skin: denies: rashes, lesions Musculoskeletal: reports: tenderness (near right knee surgical site). denies: pain Neurological: denies: numbness, weakness Psychological: reports: depression - Vital signs BP: 133/80 HR: 117 RR: 24 Tmax: 98.6F Pox: 92% on 4L Wt: 75 kg - Physical Exam Constitutional: NAD, awake, alert and oriented, well developed HEENT: normocephalic and atraumatic, EOMI, conjunctiva clear, grossly normal vision, grossly normal hearing, MMM Neck: supple, no JVD Chest: no-tender to palpation, no lesions Heart: RRR, normal S1/S2, no murmurs/rubs/gallops, pulses present -Heart: trace nonpitting edema in bilat LE Lungs: CTAB, good air movement, no wheezing Abdomen: soft, non-tender, bowel sounds present Musculoskeletal: normal structure, normal tone -Musculoskeletal: appropriately TTP over right knee. Wound dressing in place over right knee dated 04/30. No overlying erythema or warmth. Neurological: no focal deficit, normal sensation Skin: no rash/lesions, good turgor Heme/Lymphatic: no unusual bruising or bleeding Psychiatric: intact recent and remote memory -Psychiatric: tearful affect, depressed mood FMR H&P: Results - Labs Result Diagrams: 05/12/20 10:51 05/12/20 10:51 Lab results: WBC 17.8 thou/uL (4.8-10.8) H 05/12/20 10:51 Hgb 10.2 g/dL (12.0-16.0) L 05/12/20 10:51 Hct 31.7 % (36.0-47.0) L 05/12/20 10:51 MCV 87.7 fL (78.0-98.0) 05/12/20 10:51 Plt Count 580 thou/uL (130-400) H 05/12/20 10:51 Neutrophils % 80.3 % (42.0-75.0) H 05/12/20 10:51 Sodium 133 mmol/L (136-145) L 05/12/20 10:51 Potassium 4.5 mmol/L (3.5-5.1) 05/12/20 10:51 Chloride 96 mmol/L (98-107) L 05/12/20 10:51 Carbon Dioxide 26 mmol/L (23-31) 05/12/20 10:51 BUN 21 mg/dL (9.8-20.1) H 05/12/20 10:51 Creatinine 0.71 mg/dL (0.6-1.1) 05/12/20 10:51 Glucose 147 mg/dL (83-110) H 05/12/20 10:51 Lactic Acid 1.8 mmol/L (0.5-2.2) 05/12/20 10:51 Calcium 8.8 mg/dL (7.8-10.44) 05/12/20 10:51 Total Bilirubin 0.8 mg/dL (0.2-1.2) 05/12/20 10:51 AST 31 U/L (5-34) 05/12/20 10:51 ALT 31 U/L (8-55) 05/12/20 10:51 Alkaline Phosphatase 102 U/L (40-110) 05/12/20 10:51 Serum Total Protein 6.4 g/dL (6.0-8.3) 05/12/20 10:51 Albumin 3.3 g/dL (3.4-4.8) L 05/12/20 10:51 Urine Ketones Negative mg/dL (Negative) 05/12/20 12:00 Urine Blood Negative (Negative) 05/12/20 12:00 Urine Nitrite Negative (Negative) 05/12/20 12:00 Ur Leukocyte Esterase Negative Cee/uL (Negative) 05/12/20 12:00 - Radiology Interpretation Chest x-ray Status: report reviewed by me (No significant interval change seen. Bilateral airspace opacities seen suggestive of atypical pneumonia.) FMR H&P: A/P - Problem List (1) Sepsis due to pneumonia Current Visit: Yes Status: Acute Code(s): J18.9 - PNEUMONIA, UNSPECIFIED ORGANISM; A41.9 - SEPSIS, UNSPECIFIED ORGANISM (2) Anemia Current Visit: Yes Status: Chronic Code(s): D64.9 - ANEMIA, UNSPECIFIED Qualifiers: Anemia type: iron deficiency Iron deficiency anemia type: unspecified iron deficiency Qualified Code(s): D50.9 - Iron deficiency anemia, unspecified (3) Status post right knee replacement Current Visit: Yes Status: Acute Code(s): Z96.651 - PRESENCE OF RIGHT ARTIFICIAL KNEE JOINT (4) HLD (hyperlipidemia) Current Visit: No Status: Chronic Code(s): E78.5 - HYPERLIPIDEMIA, UNSPECIFIED Qualifiers: Hyperlipidemia type: unspecified Qualified Code(s): E78.5 - Hyperlipidemia , unspecified (5) HTN (hypertension) Current Visit: No Status: Chronic Code(s): I10 - ESSENTIAL (PRIMARY) HYPERTENSION Qualifiers: Hypertension type: unspecified Qualified Code(s): I10 - Essential (primary ) hypertension (6) Osteoarthritis Current Visit: No Status: Chronic Code(s): M19.90 - UNSPECIFIED OSTEOARTHRITIS, UNSPECIFIED SITE Qualifiers: Osteoarthritis location: multiple joints Osteoarthritis type: primary Qualified Code(s): M89.49 - Other hypertrophic osteoarthropathy, multiple sites - Plan Patient is a 84 yo female who presents with hypoxia is admitted with PNA: #Sepsis 2/2 Atypical PNA -patient with hypoxia to 69% at [facility], admitted with O2 requirement of 4L via N/C, no previous O2 req at home -sepsis criteria met on admission with WBC 17.6, RR 24, HR 117 -UA neg -rapid COVID swab in ED negative -Azithro & Rocephin given in ED, will discontinue and plan to start Vancomycin & Cefepime -Duonebs prn for SOB -Tylenol prn for fever/pain -RVP and COVID Ab testing pending -Procal 0.08, Lactic acid 1.8 -Blood cultures pending #S/P Right Knee Replacement -surgery on 04/[address] Pierre at [facility] -Per Dr. Subramanian, elizabeth due to be removed either 05/12 or 05/13 -Wound care consulted #Anemia -likely 2/2 surgery and known iron deficiency anemia -admission Hgb 10.8 -continue home iron supplement #HTN -BP normotensive on admission -continue home meds once rec'd #HLD -continue home meds #GERD -continue home meds #OA #Chronic back pain -continue home meds Diet: HH DVT ppx: Lovenox Code: FULL PCP: Marilynn Dispo: Stable, admit to inpatient on medical unit. Continue IV abx and monitor resp status. Anticipate LOS >48 hrs. FMR H&P: Upper Level - Plan Date/Time: 05/12/20 1520 I, [], have evaluated this patient and agree with findings/plan as outlined by general internal medicine doctor resident. Pertinent changes/additions are listed here. Addendum - Attending - Attending Attestation Date/Time: 05/12/20 1650 I personally evaluated the patient and discussed the management with Dr. Hernandez. I agree with the History, Examination, Assessment and Plan documented above with any addition or exceptions noted below.
[2020-05-12] MEDS: Vancomycin 1.5 GRAM/300 ML BAG 1.5 GM in Premix Bag 1 BAG IVPB SCH (17:26)
[2020-05-12] MEDS: Diabetic Tussin 200 MG/10 ML UDCUP PO PRN (17:27)
[2020-05-12] MEDS: Cefepime 2 GM in Sodium Chloride 0.9% 100 ML IVPB SCH (20:55)
[2020-05-13] MEDS: Vancomycin 1.5 GRAM/300 ML BAG 1.5 GM in Premix Bag 1 BAG IVPB SCH ×2 (04:15→17:16)
--- NOTE | 2020-05-13 06:05 | PDOC.FM ---
- Subjective Subjective: Pt was wearing venti mask and was anxious and tearful on exam this morning. She seems mildly confused, not sure where she is and what has or has not been done. When she began talking to me, her O2 sats dropped into the upper 80s and she had periodic coughing. - Objective Vital Signs & Weight: Vital Signs (12 hours) Temp Pulse Resp BP Pulse Ox 05/13/20 04:00 98.6 F 109 H 20 153/82 H 92 L 05/13/20 01:03 108 H 98 05/13/20 00:58 94 L 05/13/20 00:45 94 L 05/13/20 00:00 98.1 F 111 H 20 157/76 H 92 L 05/12/20 23:08 105 H 91 L 05/12/20 22:43 96 22 H 92 L 05/12/20 21:07 97.9 F 110 H 26 H 148/85 H 89 L 05/12/20 21:04 79 24 H 86 L Weight Weight 72.892 kg I&O: 05/11/20 05/12/20 05/13/20 06:59 06:59 06:59 Intake Total 230 Output Total 150 Balance 80 Result Diagrams: 05/13/20 05:45 05/13/20 05:45 Phys Exam - Physical Examination Constitutional: NAD Wearing a venti mask during exam. Coughing periodically, non productive Neck: no JVD, supple Respiratory: no wheezing mild crackles over right lung field Cardiovascular: no significant murmur tachycardic Gastrointestinal: soft, positive bowel sounds Musculoskeletal: no edema has bandage on right knee from previous knee replacement Neurological: non-focal, moves all 4 limbs Deviation from normal: mild confusion, anxious and tearful Skin: no rash Dx/Plan - Plan Plan: Patient is a 84 yo female who presents with hypoxia is admitted with PNA: #Acute hypoxic respiratory failure and sepsis 2/2 Atypical PNA -patient with hypoxia to 69% at [facility], admitted with O2 requirement of 4L via N/C, no previous O2 req at home -sepsis criteria met on admission with WBC 17.6, RR 24, HR 117 -UA neg, rapid COVID swab in ED negative -started Vancomycin & Cefepime -Duonebs prn for SOB -Tylenol prn for fever/pain -RVP and COVID Ab and blood cultures pending -Procal 0.08, Lactic acid 1.8 -will consult pulm, order repeat CXR and ekg -on venti mask 14L, will monitor O2 closely and possible transfer to IMCU if worsening respiratory status #S/P Right Knee Replacement -surgery on 04/[address] Pierre at [facility] -Per Dr. Subramanian, elizabeth due to be removed either 05/12 or 05/13 -Wound care consulted #Anemia -likely 2/2 surgery and known iron deficiency anemia -admission Hgb 10.8 -continue home iron supplement #HTN -continue home meds #HLD -continue home meds #GERD -continue home meds #OA #Chronic back pain -continue home meds Diet: HH DVT ppx: Lovenox Code: FULL PCP: Marilynn Dispo: Stable, admit to inpatient on medical unit. Continue IV abx and monitor resp status. Anticipate LOS >48 hrs. Addendum - Attending - Attending Attestation Date/Time: 05/13/20 1257 I personally evaluated the patient and discussed the management with Dr. Garvey. I agree with the History, Examination, Assessment and Plan documented above with any addition or exceptions noted below. Patient with continued worsening respiratory status overnight, and worsening tachycardia. Due to post op status, CTA chest obtained which fortunately did not show VTE/PE. She has been transferred to the IMCU for HFNC therapy. Pulm consulted. RVP pending. COVID negative as of yesterday, but suspect some atypical cause of her pneumonia that has resulted in a rapid decline in respiratory status. Await Pulm recs, consider steroids if this seems to be more inflammatory in nature.
[2020-05-13 06:38] LABS: Hemoglobin 9.8 g/dL (12.0-16.0); Mean Corpuscular Hemoglobin 28.7 pg (27.0-31.0); Mean Corpuscular Volume 87.2 fL (78.0-98.0); Mean Platelet Volume 6.7 fL (7.4-10.4); Platelet Count 635 thou/uL (130-400); RBC Distribution Width 13.8 % (11.5-14.5); White Blood Cell (WBC) Count 20.6 thou/uL (4.8-10.8)
[2020-05-13 06:45] LABS: ALT (SGPT) 26 U/L (8-55); AST (SGOT) 31 U/L (5-34); Albumin 3.3 g/dL (3.4-4.8); Alkaline Phosphatase 141 U/L (40-110); Anion Gap 15 mmol/L (10-20); BUN (Urea Nitrogen) 19 mg/dL (9.8-20.1); Bilirubin, Total 0.7 mg/dL (0.2-1.2); Calc. Creatinine Clearance 79 mL/min (70-130); Carbon Dioxide 24 mmol/L (23-31); Chloride 100 mmol/L (98-107); Estimated GFR-MDRD 90; Globulin 3.8 g/dL (2.4-3.5); Glucose 110 mg/dL (83-110); Potassium 3.7 mmol/L (3.5-5.1); Protein, Total 7.1 g/dL (6.0-8.3); Sodium 135 mmol/L (136-145)
[2020-05-13 08:01] LABS: Band 4 % (5-11); Lymphocytes 10 % (21-51); MDiff Complete? YES; Monocytes 6 % (0-10); Neutrophil 79 % (42-75); Platelet Morphology Comment Appears Increased; Polychromasia SLIGHT = 2-3 cells (100X) (0-2/hpf); Reactive Lymphocytes 1 % (0-10)
[2020-05-13] MEDS: Cefepime 2 GM in Sodium Chloride 0.9% 100 ML IVPB SCH ×2 (08:03→20:11)
[2020-05-13] MEDS: Rosuvastatin 20 MG TAB PO SCH (08:05)
[2020-05-13] MEDS: Potassium Chloride 10 MEQ TAB PO SCH (08:06)
[2020-05-13] MEDS: Hydrochlorothiazide 25 MG TAB PO SCH (08:06)
[2020-05-13] MEDS: Ferrous Gluconate 324 MG TAB PO SCH ×2 (08:06→17:15)
[2020-05-13] MEDS: Enoxaparin Sodium 40 MG/0.4 ML SYRINGE SC SCH (08:07)
[2020-05-13] MEDS: Ferrous Sulfate 325 MG TAB PO SCH (08:07)
[2020-05-13] MEDS ORDERED: Amlodipine 5 MG TAB PO SCH (09:00)
[2020-05-13] MEDS ORDERED: Prevnar 13-Val Conj/PF 0.5 ML SYRINGE IM ONE (09:00)
--- NOTE | 2020-05-13 11:21 | CT ---
CT arteriogram chest with IV contrast and 3-D imaging HISTORY: Dyspnea. FINDINGS: There is good contrast opacification of the central pulmonary arteries and the thoracic aor ta with normal branching of the great vessels at the aortic arch. Motion artifact limits detail of the mid to peripheral pulmonary arteries significantly. Patchy ill-defined areas of interstitial thickening and groundglass opacity are present throughout ea ch lung. There are more confluent at the inferior aspect of the right lower lobe in the apex of the right upper lobe and the left posterolateral lung base. No significant pleural fluid or mediastinal a denopathy apparent. There are degenerative changes of the thoracic spine. A 4.2 cm cyst is apparent within the lateral se gment left liver lobe. Approximately one third of the stomach is above the level of the diaphragm. IMPRESSION : No CT evidence of pulmonary embolus. Patchy bilateral infiltrates, in a pattern raising concern for COVID pneumonitis. Moderate-sized hiatal hernia.
[2020-05-13] MEDS ORDERED: Iopamidol 370 76% 100 ML VIAL ONE (13:41)
[2020-05-13 15:38] LABS: Vancomycin, Trough 18.9 ug/mL
[2020-05-13 19:18] LABS: SARS-CoV-2 IgG Ab Non-Reactive (NonReactive); SARS-CoV-2 IgG Index 0.02 S/CO (< 1.40)
[2020-05-13] MEDS: Gabapentin 300 MG CAP PO SCH (20:11)
[2020-05-14 04:08] LABS: ALT (SGPT) 23 U/L (8-55); AST (SGOT) 30 U/L (5-34); Albumin 3.1 g/dL (3.4-4.8); Alkaline Phosphatase 95 U/L (40-110); Anion Gap 14 mmol/L (10-20); BUN (Urea Nitrogen) 18 mg/dL (9.8-20.1); Bilirubin, Total 0.7 mg/dL (0.2-1.2); Calc. Creatinine Clearance 82 mL/min (70-130); Calcium 8.9 mg/dL (7.8-10.44); Carbon Dioxide 21 mmol/L (23-31); Chloride 101 mmol/L (98-107); Estimated GFR-MDRD Greater than 90; Globulin 3.7 g/dL (2.4-3.5); Glucose 134 mg/dL (83-110); Potassium 3.3 mmol/L (3.5-5.1); Protein, Total 6.8 g/dL (6.0-8.3); Sodium 133 mmol/L (136-145)
[2020-05-14 04:09] LABS: Band 4 % (5-11); Hemoglobin 9.5 g/dL (12.0-16.0); Hypochromia SLIGHT = 6-15 cells (100X) (0-5/hpf); Lymphocytes 7 % (21-51); MDiff Complete? YES; Mean Corpuscular HGB CONC 32.9 g/dL (32.0-36.0); Mean Corpuscular Hemoglobin 28.5 pg (27.0-31.0); Mean Corpuscular Volume 86.6 fL (78.0-98.0); Mean Platelet Volume 6.6 fL (7.4-10.4); Monocytes 9 % (0-10); Neutrophil 80 % (42-75); Platelet Count 650 thou/uL (130-400); Platelet Morphology Comment Appears Increased; RBC Distribution Width 14.1 % (11.5-14.5); Red Blood Cell (RBC) Count 3.33 mill/uL (4.20-5.40); White Blood Cell (WBC) Count 22.2 thou/uL (4.8-10.8)
[2020-05-14] MEDS: Ondansetron PF 4 MG/2 ML Vial IVP PRN ×2 (05:44→17:56)
--- NOTE | 2020-05-14 05:44 | PDOC.FM ---
- Subjective Subjective: Pt was awake and pleasant to talk with this morning. She was wearing high flow nasal cannula. She states she is not having any pain this morning, but she feels she is still having some difficulty breathing. Yesterday she had only water and an Ensure to drink. She states she is hungry and would like a cup of coffee. - Objective Vital Signs & Weight: Vital Signs (12 hours) Temp Pulse Ox 05/14/20 04:04 95 05/14/20 03:50 98.0 F 05/13/20 23:35 98.6 F 05/13/20 20:00 100 05/13/20 19:18 97.9 F Weight Admit Weight 72.892 kg Weight 72.892 kg Most Recent Monitor Data Heart Rate from ECG 119 NIBP 173/113 NIBP BP-Mean 133 Respiration from ECG 29 SpO2 96 I&O: 05/12/20 05/13/20 05/14/20 06:59 06:59 06:59 Intake Total 230 240 Output Total 150 Balance 80 240 Result Diagrams: 05/14/20 03:26 05/14/20 03:30 Phys Exam - Physical Examination Constitutional: NAD HEENT: moist MMs Neck: no JVD, supple Respiratory: no wheezing mild crackles heard over RLL, tachypnic Cardiovascular: no significant murmur tachycardic Gastrointestinal: soft, non-tender Musculoskeletal: no edema, pulses present mild pain when palpating LE, she says its chronic arthritis R knee wound, elizabeth removed, clean, dry no erythema or edema Neurological: non-focal Psychiatric: normal affect Skin: no rash Dx/Plan - Plan Plan: Patient is a 84 yo female who presents with hypoxia is admitted with PNA: #Acute hypoxic respiratory failure and sepsis 2/2 Atypical PNA -sepsis criteria met with WBC 22.2, HR 119, RR 29 -yesterday transferred from medical floor to IMCU for increased monitoring due to worsening respiratory status -currently satting 95% on high flow NC 40L FiO2 60, nurse states that sats will drop into 80s with activity -UA neg, rapid COVID swab in ED negative -started Vancomycin & Cefepime -Duonebs prn for SOB -Tylenol prn for fever/pain -RVP and COVID Ab negative -Procal 0.08, Lactic acid 1.8 -consulted pulm, appreciate recs -consider adding more atypical coverage if resp status does not improve #S/P Right Knee Replacement -surgery on 04/[address] Pierre at [facility] -elizabeth removed by wound care yesterday (05/13) -Wound care consulted #Anemia -likely 2/2 surgery and known iron deficiency anemia -admission Hgb 10.8-->9.5 -continue home meds #HTN -BP today 173/113, using a small cuff on forearm -home meds: amlodipine 2.5mg, HCTZ 25mg -will get a manual BP, continue to monitor and may increase anti-hypertensive dosage #Hypokalemia -today 3.3 -will add 40mEq K+ #HLD -continue home meds #GERD -continue home meds #OA #Chronic back pain -continue home meds Diet: HH DVT ppx: Lovenox Code: FULL PCP: Marilynn Dispo: Stable, inpatent, IMCU. Continue IV abx and monitor resp status. Anticipate LOS >48 hrs. Addendum - Attending - Attending Attestation Date/Time: 05/14/20 8505 I personally evaluated the patient and discussed the management with Dr. Garvey. I agree with the History, Examination, Assessment and Plan documented above with any addition or exceptions noted below. Patient overall stable. Hopefully somewhat improved. No CTA evidence of PE, but c/w viral pneumonitis. RVP and COVID negative. Continue abx. Continue HFNC as needed. Pulm on board.
[2020-05-14] MEDS: Vancomycin 1.5 GRAM/300 ML BAG 1.5 GM in Premix Bag 1 BAG IVPB SCH (05:45)
--- NOTE | 2020-05-14 06:16 | CON ---
DATE OF CONSULTATION: 05/13/2020 HISTORY OF PRESENT ILLNESS: Ms. Villasenor is an 84-year-old female. She presented yesterday with complaints of shortness of breath and cough. She was subsequently admitted to the intermediate care unit She says she feels better, but I was consulted because of her marginally functional status. PAST MEDICAL HISTORY: Remarkable for: 1. Hypertension. 2. Reflux. 3. Degenerative arthritis. 4. History of a bladder suspension. 5. Status post hysterectomy. 6. History of knee replacement on the left and right. 7. History of cholecystectomy. 8. History of multiple back surgeries. 9. History of carpal tunnel surgery. 10. History of cataract surgery bilaterally. 11. History of surgery. SOCIAL HISTORY: She is a nonsmoker and nondrinker. REVIEW OF SYSTEMS: Otherwise negative 10-point. PHYSICAL EXAMINATION: GENERAL: She is a very pleasant woman, appears younger than her age. VITAL SIGNS: She is afebrile. Heart rate 116, respiratory rate 27, oximetry is 100%, and blood pressure Unremarkable. LUNGS: Remarkable for crackles in both lung bases. HEART: Regular rhythm. S1 and S2 are normal. ABDOMEN: Soft and nontender. EXTREMITIES: Without clubbing, cyanosis, or edema. NEUROLOGIC: Nonfocal. IMAGING STUDIES: CT angiogram done today shows no thromboembolic disease. Patchy bilateral infiltrates were noted. She has been afebrile. LABORATORY DATA: White count 20.6, hemoglobin 9.8, and platelets 635. Electrolytes are normal. COVID screen was negative. IMPRESSION: Community-acquired pneumonia. She appears to be clinically improving. I agree with current management by the house staff. Follow along with them. This is a 70 min consult with greater than 50% spent on the unit with coordination of care. Job ID: [id number] [facility]ITAL[facility]ha
[2020-05-14] MEDS ORDERED: hydrALAZINE 10 MG TAB PO PRN (08:09)
[2020-05-14] MEDS ORDERED: Potassium Chloride 20 MEQ TAB PO SCH (08:15)
[2020-05-14] MEDS ORDERED: Amlodipine 5 MG TAB PO SCH ×3 (09:00→09:30)
[2020-05-14] MEDS: Cefepime 2 GM in Sodium Chloride 0.9% 100 ML IVPB SCH ×2 (10:15→20:23)
[2020-05-14] MEDS: Potassium Chloride 10 MEQ TAB PO SCH (10:16)
[2020-05-14] MEDS: Enoxaparin Sodium 40 MG/0.4 ML SYRINGE SC SCH (10:16)
[2020-05-14] MEDS: Ferrous Sulfate 325 MG TAB PO SCH (10:17)
[2020-05-14] MEDS: Ferrous Gluconate 324 MG TAB PO SCH ×2 (10:17→17:26)
[2020-05-14] MEDS: Hydrochlorothiazide 25 MG TAB PO SCH (10:17)
[2020-05-14] MEDS: Acetaminophen 325 MG TAB PO PRN (10:17)
[2020-05-14] MEDS: Rosuvastatin 20 MG TAB PO SCH (10:18)
--- NOTE | 2020-05-14 10:51 | RAD ---
EXAM: CHEST ONE VIEW HISTORY: Pneumonia COMPARISON: 05/12/2020 FINDINGS: Cardiac silhouette is magnified by projection. There are increased interstitial and alveolar opacitie s seen throughout the right lung with interval increase in interstitial and alveolar opacities at the left lung base and left upper lung zone compared to prior exam. Findings are worrisome for bilate ral multifocal pneumonia . Right glenohumeral prosthesis is again seen. IMPRESSION: Increase in left interstitial and alveolar opacities with persistent right interstitial and alveolar opacities. Findings are likely related to worsening pneumonia. Atypical pneumonia is a possibility.
[2020-05-14] MEDS ORDERED: Azithromycin 250 MG TAB PO SCH (12:15)
--- NOTE | 2020-05-14 12:19 | PRG ---
DATE OF SERVICE: 05/14/2020 SUBJECTIVE: Ms. Villasenor is an 84-year-old female, who appears to be stabilizing. She is still mildly tachycardic. OBJECTIVE: VITAL SIGNS: Her blood pressure was elevated this morning at 155/100, at 11 o'clock it is 132/80. Intake and outputs negative 280. LUNGS: Remarkable for mild rhonchi posteriorly. HEART: Regular rhythm. ABDOMEN: Soft. EXTREMITIES: Without edema. IMAGING STUDIES: Chest radiograph still shows bilateral patchy infiltrates. LABORATORY DATA: White count 22, hemoglobin 9.5, and platelets 650. Sodium 133, potassium 3.3, chloride 101, bicarb BUN 18, creatinine 0.6. IMPRESSION: Pneumonia, clinically stable. Her COVID screen is negative. She is on broad antimicrobial therapy. She will continue with antimicrobial therapy. I would recommend that her nebulizer treatments to be changed to scheduled. Hopefully, this will help her mobilize secretions. Job ID: [id number]
[2020-05-14 18:26] LABS: Legionella Urinary Ag Negative (Negative)
[2020-05-14] MEDS: Gabapentin 300 MG CAP PO SCH (20:23)
--- NOTE | 2020-05-15 03:17 | PDOC.BPN ---
- Brief Progress Note At approximately 0200, the Resident Night Team was notified that patient was experiencing increased work of breathing and had desat'd down to the 80s. Patient's HFNC was subsequently increased from 40L to 60L, and the patient's O2Sats improved to the low 90s, but the patient's work of breathing remained labored and tachypneic to the low 40s. A STAT ABG was ordered that demonstrated mixed acid-base disturbance with a pH of 7.45, pCO2 of 29.5 and a PO2 of 47.9. A STAT CXR was ordered, which demonstrated mild worsening of bilateral pulmonary infiltrates when compared to previous images. Based on the patient's prolonged increased work of breathing and increase O2 demand, the decision was made to place the patient on biPAP. Will continue to follow closely.
[2020-05-15] MEDS ORDERED: Lorazepam 2 MG/ML VIAL SLOW IVP SCH (03:32)
[2020-05-15 03:39] LABS: #Eosinphils 0.2 thou/uL (0.0-0.7); #Lymphocytes 1.8 thou/uL (1.20-3.40); #Monocytes 1.6 thou/uL (0.11-0.59); #Neutrophils 17.9 thou/uL (1.40-6.50); %Basophils 0.2 % (0.0-1.0); %Eosinophils 0.8 % (0.0-10.0); %Lymphocytes 8.3 % (21.0-51.0); %Monocytes 7.5 % (0.0-10.0); %Neutrophils 83.3 % (42.0-75.0); Hemoglobin 9.3 g/dL (12.0-16.0); Mean Corpuscular HGB CONC 33.2 g/dL (32.0-36.0); Mean Corpuscular Hemoglobin 28.8 pg (27.0-31.0); Mean Corpuscular Volume 86.6 fL (78.0-98.0); Mean Platelet Volume 6.5 fL (7.4-10.4); Platelet Count 617 thou/uL (130-400); RBC Distribution Width 13.9 % (11.5-14.5); Red Blood Cell (RBC) Count 3.25 mill/uL (4.20-5.40); White Blood Cell (WBC) Count 21.5 thou/uL (4.8-10.8)
[2020-05-15 03:47] LABS: Actual Bicarbonate (HCO3a) 20.1 mEq/L (22-28); Base Excess (BEa) -3.1 mEq/L (-2.0 to +3.0); CO2 Tension 29.5 mmHg (35.0-45.0); Carboxyhemoglobin (COHb) 0.3 gm% (0.0-3.0); Hemoglobin (Hb) 10.1 g/dL (12.0-16.0); Potassium - ABG Lab 3.42 mmol/L (3.70-5.30); pH, Arterial 7.45 (7.35-7.45)
[2020-05-15 03:49] LABS: ALV-art Gradient 449.975 (0-20); O2 Tension (PaO2), arterial 47.9 mmHg (> 60.0); Puncture Site LBA
[2020-05-15 04:00] LABS: ALT (SGPT) 24 U/L (8-55); AST (SGOT) 25 U/L (5-34); Alkaline Phosphatase 105 U/L (40-110); Anion Gap 13 mmol/L (10-20); BUN (Urea Nitrogen) 19 mg/dL (9.8-20.1); Bilirubin, Total 0.8 mg/dL (0.2-1.2); Calc. Creatinine Clearance 82 mL/min (70-130); Carbon Dioxide 24 mmol/L (23-31); Chloride 104 mmol/L (98-107); Estimated GFR-MDRD Greater than 90; Globulin 3.7 g/dL (2.4-3.5); Glucose 141 mg/dL (83-110); Potassium 3.3 mmol/L (3.5-5.1); Protein, Total 6.7 g/dL (6.0-8.3); Sodium 138 mmol/L (136-145)
--- NOTE | 2020-05-15 05:43 | PDOC.FM ---
- Subjective Subjective: Pt decompensated overnight. Her O2 sats dropped and bipap was attempted. She was not able to tolerate. She is now back on high flow NC at 60L and FiO2 90. On exam she is tachypnic, RR in the 40s. She seemed to have some altered mentation with garbled speech, although it was difficult to determine since she did not have in her dentures. - Objective Vital Signs & Weight: Vital Signs (12 hours) Temp Pulse Resp Pulse Ox 05/15/20 03:54 99.0 F 05/15/20 02:39 127 H 38 H 96 05/15/20 02:33 96 05/14/20 23:38 97.6 F 05/14/20 22:41 120 H 34 H 98 05/14/20 20:00 92 L 05/14/20 19:14 98.2 F 05/14/20 19:02 116 H 32 H 94 L 05/14/20 18:15 94 L 05/14/20 18:00 85 L Weight Admit Weight 72.892 kg Weight 72.892 kg Most Recent Monitor Data Heart Rate from ECG 108 NIBP 125/83 NIBP BP-Mean 97 Respiration from ECG 41 SpO2 98 I&O: 05/13/20 05/14/20 05/15/20 06:59 06:59 06:59 Intake Total 230 720 400 Output Total 150 1000 150 Balance 80 -280 250 Result Diagrams: 05/15/20 03:11 05/15/20 03:11 Phys Exam - Physical Examination tachypnic, using accessory muscles for respiration on high flow nasal cannula Respiratory: no wheezing, clear to auscultation bilateral tachycardic Gastrointestinal: soft, non-tender tender to light touch of lower extremities, no erythema or edema incomprehensible speech Skin: no rash Dx/Plan - Plan Plan: Patient is a 84 yo female who presents with hypoxia is admitted with PNA: #Acute hypoxic respiratory failure and sepsis 2/2 Atypical PNA -sepsis criteria met with WBC 21.5, HR 108, RR 41 -in IMCU for increased monitoring due to worsening respiratory status -overnight was found to have sats in the 80s and RR in the 40s, tried bipap, not able to tolerate. Now back on high flow NC -repeat CXR shows worsening of PNA -UA neg, rapid COVID swab in ED negative -Cefepime and Azithromycin -Duonebs sandee -Tylenol prn for fever/pain -RVP and COVID Ab negative -Procal 0.09, Lactic acid 1.8 -consulted pulm, appreciate recs #S/P Right Knee Replacement -surgery on 04/[address] Pierre at [facility] -elizabeth removed by wound care yesterday (05/13) -Wound care consulted #Anemia -likely 2/2 surgery and known iron deficiency anemia -admission Hgb 10.8-->9.5 -continue home meds #HTN -currently normotensive -home meds: amlodipine 2.5mg, HCTZ 25mg #Hypokalemia -today 3.3 -will add 40mEq K+ #HLD -continue home meds #GERD -continue home meds #OA #Chronic back pain -continue home meds Diet: HH DVT ppx: Lovenox Code: FULL PCP: Marilynn Dispo: Stable, inpatent, IMCU. Continue IV abx and monitor resp status. Anticipate LOS >48 hrs. Addendum - Attending - Attending Attestation Date/Time: 05/15/20 4048 I personally evaluated the patient and discussed the management with Dr. Garvey. I agree with the History, Examination, Assessment and Plan documented above with any addition or exceptions noted below. Patient resting comfortably at current time. She required Bipap for a short term overnight but is back to HFNC. Her WBC is overall stable, respiratory status brittle. Continue current mgmt, added Azithro for atypical causes yesterday. Monitor strict I/O. Consider steroids if she does not make improvement in near future. Pulm on board.
[2020-05-15] MEDS ORDERED: Potassium Chloride 20 MEQ TAB PO SCH ×2 (06:45→10:00)
[2020-05-15] MEDS: Ferrous Gluconate 324 MG TAB PO SCH ×3 (08:22→16:58)
[2020-05-15] MEDS: Rosuvastatin 20 MG TAB PO SCH ×2 (08:23→11:07)
[2020-05-15] MEDS: Ferrous Sulfate 325 MG TAB PO SCH ×2 (08:23→11:03)
[2020-05-15] MEDS: Amlodipine 5 MG TAB PO SCH ×2 (08:23→11:04)
[2020-05-15] MEDS: Hydrochlorothiazide 25 MG TAB PO SCH ×2 (08:23→11:03)
[2020-05-15] MEDS: Potassium Chloride 10 MEQ TAB PO SCH ×2 (08:23→11:06)
[2020-05-15] MEDS: Cefepime 2 GM in Sodium Chloride 0.9% 100 ML IVPB SCH ×2 (08:24→20:29)
[2020-05-15] MEDS: Diabetic Tussin 200 MG/10 ML UDCUP PO PRN (08:24)
[2020-05-15] MEDS: Enoxaparin Sodium 40 MG/0.4 ML SYRINGE SC SCH (08:24)
--- NOTE | 2020-05-15 08:25 | RAD ---
RADIOGRAPH CHEST 1 VIEW: DATE: 05/15/2020 TIME: 3:16 AM HISTORY: 84-year-old female with respiratory distress COMPARISON: 05/14/2020 FINDINGS: Low lung volumes. Moderate to large hiatal hernia. Diffuse bilateral interstitial and alveolar infilt rates appear somewhat worse now. Left apex remains relatively spared. Greatest interval change is at left mid lung field with greater alveolar infiltrate. No pneumothorax. IMPRESSION: 1. Interval worsening of bilateral infiltrates. 2. Moderate to large hiatal hernia.
[2020-05-15] MEDS: Lactated Ringer's 1,000 ML IV SCH ×2 (08:26→14:59)
[2020-05-15] MEDS ORDERED: Electrolyte Replacement Protoc 1 EACH EACH FS PRN (08:50)
[2020-05-15] MEDS ORDERED: Electrolyte Replacement Protocol FS PRN (08:50)
[2020-05-15] MEDS ORDERED: Morphine 2 MG/ML VIAL SLOW IVP PRN (08:59)
[2020-05-15] MEDS ORDERED: Propofol BOLUS 1,000 MG/100 ML VIAL IV PRN (08:59)
[2020-05-15] MEDS ORDERED: Fentanyl BOLUS 250 ML IVPB PRN (08:59)
[2020-05-15] MEDS ORDERED: DISCONTINUE PREVIOUS NARCOTIC PAIN MEDICATIONS AND BENZODIAZEPINES FS SCH (08:59)
[2020-05-15] MEDS ORDERED: Azithromycin 250 MG TAB PO SCH (09:00)
[2020-05-15] MEDS ORDERED: Succinylcholine Chloride 200 MG/10 ML VIAL IVP SCH (09:00)
[2020-05-15] MEDS ORDERED: Ventilator Sedation Protocol 1 EACH FS SCH (09:00)
--- NOTE | 2020-05-15 09:06 | PRG ---
DATE OF SERVICE: 05/15/2020 TIME: 35 minutes of critical care time. SUBJECTIVE: This patient has done poorly overnight with high-flow nasal cannula. She was then tried on BiPAP, but would not keep the mask on. In general, I find her confused. She does not know where she is. She is very tachypneic. OBJECTIVE: VITAL SIGNS: Her temperature is 99.2, pulse 115, blood pressure 140/79, O2 saturations 95%. HEENT: Unremarkable. NECK: No adenopathy or JVD. LUNGS: Diffuse crackles. CARDIAC: S1 and S2. Tachycardic. ABDOMEN: Soft, nontender. EXTREMITIES: No edema. LABORATORY DATA: White blood cell count 21.5, hematocrit 28.1, and platelet count 617. pH 7.45, pCO2 of 29, pO2 of 47 on high-flow oxygen 75%. Sodium 138, potassium 3.3, chloride 104, CO2 of 24, BUN 19, creatinine 0.6, glucose 141. Cultures showed coag-negative staph in 1 out of 2. COVID test was negative. ASSESSMENT: 1. This is an elderly female with bilateral pneumonia with a worsening respiratory status despite high-flow oxygen, appropriate antibiotics, etc. 2. Her health appears to be very poor at baseline. I think we are faced with the choice of being aggressive in intubating or making her DNR and continuing high-flow oxygen. I do not think her chances for survival are great with either scenario. I have contacted the patient's son over the phone. He will consult with the rest of the family and let us know how they want to proceed. Job ID: [id number]
[2020-05-15] MEDS ORDERED: Sodium Chloride 0.45% 1,000 ML IV SCH (09:45)
--- NOTE | 2020-05-15 09:54 | OP ---
DATE OF PROCEDURE: 05/15/2020 PROCEDURE: Endotracheal intubation. PREOPERATIVE DIAGNOSIS: Respiratory failure, failed high-flow nasal cannula and BiPAP. POSTOPERATIVE DIAGNOSIS: Successful endotracheal intubation. ANESTHESIA: The patient was given a total of 20 mg of etomidate IV and 100 mg of succinylcholine IV. DESCRIPTION OF PROCEDURE: This patient was pre-oxygenated with high-flow nasal cannula 100%. She was placed in supine position. Using a GlideScope with a size 3 blade, she was intubated orally with a size 7.5 endotracheal tube on first attempt. The patient tolerated the procedure well. Job ID: [id number]
[2020-05-15 09:59] LABS: Actual Bicarbonate (HCO3a) 20.5 mEq/L (22-28); Base Excess (BEa) -5.8 mEq/L (-2.0 to +3.0); Calcium, Ionized (arterial) 1.21 mmol/L (1.12-1.30); Carboxyhemoglobin (COHb) 0.6 gm% (0.0-3.0); Hemoglobin (Hb) 9.5 g/dL (12.0-16.0); Potassium - ABG Lab 3.61 mmol/L (3.70-5.30); pH, Arterial 7.29 (7.35-7.45)
[2020-05-15 10:06] LABS: O2 Tension (PaO2), arterial 57.6 mmHg (> 60.0); Puncture Site RBRACH
[2020-05-15] MEDS: Lorazepam 2 MG/ML VIAL SLOW IVP PRN (10:17)
[2020-05-15] MEDS: Propofol 1,000 MG/100 ML VIAL IV PRN ×2 (10:18→14:34)
--- NOTE | 2020-05-15 10:35 | RAD ---
CHEST 1 VIEW: Date: 05/15/2020 HISTORY: Intubation. COMPARISON: 05/15/2020 earlier study. FINDINGS: Gastric tube extends down into the stomach. Endotracheal tube extends into the right mainstem bronchu s and should probably be pulled back at least 3-4 cm. Extensive stable bilateral alveolar and ground- glass opacity changes. IMPRESSION: Stable extensive bilateral alveolar and ground-glass opacity changes. Endotracheal tube tip in right mainstem bronchus. Findings discussed with nurse, Grant, who indicated that he would contact ordering physician in this regard. CODE CR. POS: RRE
[2020-05-15] MEDS: fentaNYL Citrate/PF 2,000 MCG in Sodium Chloride 0.9% 60 ML IV SCH (14:34)
[2020-05-15] MEDS: Gabapentin 300 MG CAP PO SCH (20:29)
[2020-05-15] MEDS: Acetaminophen 325 MG TAB PO PRN (20:42)
[2020-05-15] MEDS ORDERED: Sodium Chloride 0.9% 1,000 ML IV SCH (23:15)
[2020-05-16] MEDS: Propofol 1,000 MG/100 ML VIAL IV PRN ×4 (00:13→22:53)
[2020-05-16] MEDS: Lactated Ringer's 1,000 ML IV SCH (02:33)
[2020-05-16] MEDS: Lorazepam 2 MG/ML VIAL SLOW IVP PRN (02:33)
[2020-05-16 04:07] LABS: #Eosinphils 1.1 thou/uL (0.0-0.7); #Lymphocytes 3.2 thou/uL (1.20-3.40); #Monocytes 1.6 thou/uL (0.11-0.59); %Basophils 0.2 % (0.0-1.0); %Eosinophils 4.7 % (0.0-10.0); %Lymphocytes 13.9 % (21.0-51.0); %Neutrophils 74.3 % (42.0-75.0); Hemoglobin 8.6 g/dL (12.0-16.0); Mean Corpuscular HGB CONC 30.6 g/dL (32.0-36.0); Mean Corpuscular Hemoglobin 27.8 pg (27.0-31.0); Mean Platelet Volume 6.6 fL (7.4-10.4); Platelet Count 440 thou/uL (130-400); RBC Distribution Width 13.9 % (11.5-14.5); Red Blood Cell (RBC) Count 3.09 mill/uL (4.20-5.40); White Blood Cell (WBC) Count 22.9 thou/uL (4.8-10.8)
[2020-05-16 04:25] LABS: ALT (SGPT) 25 U/L (8-55); AST (SGOT) 29 U/L (5-34); Albumin 2.5 g/dL (3.4-4.8); Alkaline Phosphatase 92 U/L (40-110); Anion Gap 13 mmol/L (10-20); BUN (Urea Nitrogen) 27 mg/dL (9.8-20.1); Bilirubin, Total 0.6 mg/dL (0.2-1.2); Calc. Creatinine Clearance 72 mL/min (70-130); Calcium 8.2 mg/dL (7.8-10.44); Carbon Dioxide 19 mmol/L (23-31); Chloride 110 mmol/L (98-107); Estimated GFR-MDRD 81; Globulin 3.2 g/dL (2.4-3.5); Glucose 110 mg/dL (83-110); Potassium 4.1 mmol/L (3.5-5.1); Protein, Total 5.7 g/dL (6.0-8.3); Sodium 138 mmol/L (136-145)
[2020-05-16] MEDS ORDERED: Sodium Chloride 0.9% (PF) 10 ML VIAL FS PRN (06:30)
--- NOTE | 2020-05-16 06:31 | PDOC.FM ---
- Subjective Subjective: pt intubated and sedated, not responsive to verbal/painful stimuli. - Objective Vital Signs & Weight: Vital Signs (12 hours) Temp Pulse Resp Pulse Ox 05/16/20 04:00 99.1 F 33 H 05/16/20 02:34 93 31 H 92 L 05/16/20 02:31 96 05/16/20 02:00 32 H 05/16/20 00:13 99 05/16/20 00:00 98.7 F 28 H 05/15/20 22:01 104 H 33 H 100 05/15/20 22:00 33 H 05/15/20 21:58 120 H 05/15/20 20:00 100.6 F H 34 H 05/15/20 18:29 103 H 32 H 97 Weight Admit Weight 72.892 kg Weight 72.892 kg Most Recent Monitor Data Heart Rate from ECG 98 NIBP 105/60 NIBP BP-Mean 75 Respiration from ECG 31 SpO2 94 I&O: 05/14/20 05/15/20 05/16/20 06:59 06:59 06:59 Intake Total 494 709 4381.1 Output Total 1000 700 296 Balance -280 -80 3296.1 Result Diagrams: 05/16/20 03:40 05/16/20 03:40 Phys Exam - Physical Examination Constitutional: NAD HEENT: moist MMs Neck: supple crackles throughout Cardiovascular: no significant murmur tachy Gastrointestinal: soft, no distention Musculoskeletal: no edema, pulses present Skin: no rash, normal turgor Dx/Plan (1) Sepsis due to pneumonia Code(s): J18.9 - PNEUMONIA, UNSPECIFIED ORGANISM; A41.9 - SEPSIS, UNSPECIFIED ORGANISM Status: Acute (2) Status post right knee replacement Code(s): Z96.651 - PRESENCE OF RIGHT ARTIFICIAL KNEE JOINT Status: Acute (3) Anemia Code(s): D64.9 - ANEMIA, UNSPECIFIED Status: Chronic Qualifiers: Anemia type: iron deficiency Iron deficiency anemia type: unspecified iron deficiency Qualified Code(s): D50.9 - Iron deficiency anemia, unspecified (4) Hypokalemia Code(s): E87.6 - HYPOKALEMIA Status: Acute (5) Arthritis Code(s): M19.90 - UNSPECIFIED OSTEOARTHRITIS, UNSPECIFIED SITE Status: Chronic (6) GERD (gastroesophageal reflux disease) Code(s): K21.9 - GASTRO-ESOPHAGEAL REFLUX DISEASE WITHOUT ESOPHAGITIS Status: Chronic (7) HTN (hypertension) Code(s): I10 - ESSENTIAL (PRIMARY) HYPERTENSION Status: Chronic Qualifiers: Hypertension type: unspecified Qualified Code(s): I10 - Essential (primary ) hypertension - Plan Plan: Acute hypoxic respiratory failure and sepsis 2/2 Atypical PNA -sepsis criteria met with WBC 21.5, HR 108, RR 41 -intubation for respiratory compromise 05/15, ICU monitoring -interval cxr show worsening b/l patchy interstitial infiltrate - procal wnl, urine antigens negative, covid pcr/rvp/covid ab neg -Cefepime and Azithromycin -consulted pulm, appreciate recs S/P Right Knee Replacement -surgery on 04/[address] Pierre at [facility] -elizabeth removed by wound care yesterday (05/13) -Wound care consulted Anemia -likely 2/2 surgery and known iron deficiency anemia -monitor HTN -hold home meds Hypokalemia -monitor and replace as needed HLD -hold home meds GERD -famotidine Diet: HH DVT ppx: Lovenox, famotidine Code: FULL PCP: Marilynn Dispo: continue monitoring and further eval. guarded prognosis. Addendum - Attending - Attending Attestation Date/Time: 05/16/20 0730 I personally evaluated the patient and discussed the management with Dr. Bhardwaj. I agree with the History, Examination, Assessment and Plan documented above with any addition or exceptions noted below. Patient here with severe pneumonia. Intubated yesterday by Pulm. Low UOP. Continue abx and respiratory support. Guarded to poor prognosis.
[2020-05-16 06:49] LABS: Actual Bicarbonate (HCO3a) 19.5 mEq/L (22-28); Base Excess (BEa) -6.8 mEq/L (-2.0 to +3.0); CO2 Tension 42.8 mmHg (35.0-45.0); Calcium, Ionized (arterial) 1.19 mmol/L (1.12-1.30); Carboxyhemoglobin (COHb) 1.1 gm% (0.0-3.0); Hemoglobin (Hb) 8.8 g/dL (12.0-16.0); Potassium - ABG Lab 4.32 mmol/L (3.70-5.30); pH, Arterial 7.28 (7.35-7.45)
[2020-05-16 06:57] LABS: O2 Tension (PaO2), arterial 60.1 mmHg (> 60.0)
[2020-05-16 06:58] LABS: Puncture Site RBRACH
--- NOTE | 2020-05-16 08:38 | PRG ---
DATE OF SERVICE: 05/16/2020 TIME SPENT: 35 minutes of critical care time. SUBJECTIVE: This patient remains intubated on mechanical ventilation. There have been no acute changes overnight. OBJECTIVE: VITAL SIGNS: Temperature is 99.1, pulse 103, blood pressure 119/54, and O2 saturation 92%. 24-hour intake 4190, output 326. Weight 165 pounds. GENERAL: She is intubated and sedated. HEENT: Unremarkable except for the tubes in place. NECK: No JVD. LUNGS: Coarse breath sounds. CARDIOVASCULAR: S1 and S2. Regular. ABDOMEN: Obese, soft, and nontender. EXTREMITIES: No clubbing or cyanosis. She has a well-healed right knee wound. LABORATORY DATA: Sodium 130, potassium 4.1, chloride 110, CO2 of 19, BUN 27, creatinine 0.6, and glucose 81. White blood cell count 22.9, hematocrit 28.1, and platelet count 440. PH of 7.28, pCO2 of 42, pO2 of 60, on SIMV rate 24, tidal volume 400, PEEP 10, pressure support 12, and FiO2 of 50%. IMAGING DATA: Chest x-ray looks about the same. ASSESSMENT: 1. Acute hypoxic respiratory failure, requiring mechanical ventilation, failed BiPAP. 2. Bilateral pneumonia, nosocomial in origin given recent surgery. 3. Metabolic acidosis. PLAN: 1. Check echo to reassess cardiac status. 2. Add vancomycin given recent knee surgery and risk for MRSA. 3. Switched to bicarbonate drip. 4. Add IV corticosteroids. 5. Urine output has been low despite bolusing the patient. At this time, I would probably be conservative with the fluids. Job ID: [id number]
[2020-05-16] MEDS: Potassium Chloride 10 MEQ TAB PO SCH (08:51)
[2020-05-16] MEDS ORDERED: Pantoprazole 40 MG VIAL IVP SCH (09:00)
--- NOTE | 2020-05-16 09:31 | RAD ---
RADIOGRAPH CHEST 1 VIEW: DATE: 05/16/2020 TIME: 5:46 AM HISTORY: 84-year-old female with pneumonia COMPARISON: 05/15/2020 9:54 AM FINDINGS: Tip of endotracheal tube is no longer at the origin of the right mainstem bronchus, but is now approx imately 2 cm superior to the purvi. It is directed and angulated to the right, following the rightward deviation of the intrathoracic trachea. No interval change in the diffuse bilateral infiltr ates. Review of CT of 05/13/2020 demonstrates that these severe infiltrates are in mosaic-crazy paving pattern, which is nonspecific. Lung volumes are again noted to be low. It is difficult to appr eciate the moderate to large hiatal hernia on the current study. No pneumothorax.. IMPRESSION: 1) no interval change in the diffuse infiltrates. 2) endotracheal tube is now 2 cm superior to the purvi.
[2020-05-16] MEDS: Sodium Bicarbonate 70 MEQ in Sodium Chloride 0.45% 1,000 ML IV SCH ×2 (09:37→22:54)
[2020-05-16] MEDS: Azithromycin 500 MG in Sodium Chloride 0.9% 250 ML 250 ML IVPB SCH (09:38)
[2020-05-16] MEDS: Vancomycin HCl 1.25 GM in Sodium Chloride 0.9% 250 ML 250 ML IVPB SCH ×2 (09:38→21:45)
[2020-05-16] MEDS: Cefepime 2 GM in Sodium Chloride 0.9% 100 ML IVPB SCH ×2 (09:44→20:46)
[2020-05-16] MEDS: Enoxaparin Sodium 40 MG/0.4 ML SYRINGE SC SCH (09:45)
[2020-05-16] MEDS: Famotidine/PF 20 mg/2ml Vial SLOW IVP SCH (09:45)
[2020-05-16] MEDS: fentaNYL Citrate/PF 2,000 MCG in Sodium Chloride 0.9% 60 ML IV SCH (10:33)
[2020-05-16] MEDS: methylPREDNISolone Sod Succ 40 MG VIAL IVP SCH ×3 (12:11→22:53)
[2020-05-17 03:56] LABS: #Eosinphils 0.1 thou/uL (0.0-0.7); #Lymphocytes 1.4 thou/uL (1.20-3.40); #Monocytes 0.4 thou/uL (0.11-0.59); #Neutrophils 13.4 thou/uL (1.40-6.50); %Basophils 0.2 % (0.0-1.0); %Eosinophils 0.4 % (0.0-10.0); %Lymphocytes 9.2 % (21.0-51.0); %Monocytes 2.5 % (0.0-10.0); %Neutrophils 87.7 % (42.0-75.0); Hemoglobin 7.4 g/dL (12.0-16.0); Mean Corpuscular HGB CONC 31.5 g/dL (32.0-36.0); Mean Corpuscular Hemoglobin 28.4 pg (27.0-31.0); Mean Corpuscular Volume 90.1 fL (78.0-98.0); Mean Platelet Volume 7.1 fL (7.4-10.4); Platelet Count 374 thou/uL (130-400); Red Blood Cell (RBC) Count 2.61 mill/uL (4.20-5.40); White Blood Cell (WBC) Count 15.2 thou/uL (4.8-10.8)
[2020-05-17 04:19] LABS: ALT (SGPT) 563 U/L (8-55); AST (SGOT) 759 U/L (5-34); Albumin 2.4 g/dL (3.4-4.8); Alkaline Phosphatase 105 U/L (40-110); Anion Gap 14 mmol/L (10-20); BUN (Urea Nitrogen) 44 mg/dL (9.8-20.1); Bilirubin, Total 0.5 mg/dL (0.2-1.2); Calc. Creatinine Clearance 52 mL/min (70-130); Calcium 7.9 mg/dL (7.8-10.44); Carbon Dioxide 18 mmol/L (23-31); Chloride 110 mmol/L (98-107); Estimated GFR-MDRD 54; Globulin 2.9 g/dL (2.4-3.5); Glucose 143 mg/dL (83-110); Potassium 4.2 mmol/L (3.5-5.1); Protein, Total 5.3 g/dL (6.0-8.3); Sodium 138 mmol/L (136-145)
[2020-05-17] MEDS: Propofol 1,000 MG/100 ML VIAL IV PRN ×4 (04:21→23:37)
[2020-05-17] MEDS: methylPREDNISolone Sod Succ 40 MG VIAL IVP SCH ×4 (05:20→23:37)
--- NOTE | 2020-05-17 05:29 | PDOC.FM ---
- Subjective Subjective: Intubated and Sedated. Does not respond verbal or painful stimuli. - Objective MAR Reviewed: Yes Vital Signs & Weight: Vital Signs (12 hours) Temp Pulse Resp Pulse Ox 05/17/20 02:55 80 05/17/20 02:53 78 24 H 100 05/17/20 00:05 85 05/17/20 00:00 98.6 F 05/16/20 21:48 86 24 H 100 05/16/20 21:46 85 05/16/20 20:00 97.5 F L 24 H 05/16/20 18:09 100 24 H 96 05/16/20 18:06 96 05/16/20 18:00 24 H Weight Admit Weight 72.892 kg Weight 75.2 kg Most Recent Monitor Data Heart Rate from ECG 83 NIBP 105/52 NIBP BP-Mean 69 Respiration from ECG 17 SpO2 100 I&O: 05/15/20 05/16/20 05/17/20 06:59 06:59 06:59 Intake Total 620 4190.3 2670.2 Output Total 700 326 228 Balance -80 3864.3 2442.2 Result Diagrams: 05/17/20 03:45 05/17/20 03:45 Phys Exam - Physical Examination Constitutional: NAD HEENT: moist MMs Neck: supple Respiratory: clear to auscultation bilateral Cardiovascular: RRR, no significant murmur Gastrointestinal: soft, non-tender Musculoskeletal: pulses present 1+ edema bilaterally. Skin: no rash Dx/Plan (1) Sepsis due to pneumonia Code(s): J18.9 - PNEUMONIA, UNSPECIFIED ORGANISM; A41.9 - SEPSIS, UNSPECIFIED ORGANISM Status: Acute (2) Status post right knee replacement Code(s): Z96.651 - PRESENCE OF RIGHT ARTIFICIAL KNEE JOINT Status: Acute (3) Anemia Code(s): D64.9 - ANEMIA, UNSPECIFIED Status: Chronic Qualifiers: Anemia type: iron deficiency Iron deficiency anemia type: unspecified iron deficiency Qualified Code(s): D50.9 - Iron deficiency anemia, unspecified (4) Hypokalemia Code(s): E87.6 - HYPOKALEMIA Status: Acute (5) GERD (gastroesophageal reflux disease) Code(s): K21.9 - GASTRO-ESOPHAGEAL REFLUX DISEASE WITHOUT ESOPHAGITIS Status: Chronic (6) HLD (hyperlipidemia) Code(s): E78.5 - HYPERLIPIDEMIA, UNSPECIFIED Status: Chronic Qualifiers: Hyperlipidemia type: unspecified Qualified Code(s): E78.5 - Hyperlipidemia , unspecified (7) HTN (hypertension) Code(s): I10 - ESSENTIAL (PRIMARY) HYPERTENSION Status: Chronic Qualifiers: Hypertension type: unspecified Qualified Code(s): I10 - Essential (primary ) hypertension (8) Osteoarthritis Code(s): M19.90 - UNSPECIFIED OSTEOARTHRITIS, UNSPECIFIED SITE Status: Chronic Qualifiers: Osteoarthritis location: multiple joints Osteoarthritis type: primary Qualified Code(s): M89.49 - Other hypertrophic osteoarthropathy, multiple sites - Plan Plan: Acute hypoxic respiratory failure and sepsis 2/2 Atypical PNA - Intubated 05/15/2020 after failed bipap. - procal wnl, urine antigens negative, covid pcr/rvp/covid ab neg - Cefepime (05/12), Azithromycin (05/14), and Vancomycin (05/16) - Pulmonology consulted, appreciate recommendations. S/P Right Knee Replacement -surgery on 04/[address] Pierre at [facility] -elizabeth removed by wound care (05/13) -Wound care consulted Anemia, worsening -likely 2/2 surgery and known iron deficiency anemia. Will monitor for source of bleeding. Possibly 2/2 hemodilution. Oliguria, worsening -despite IVF HTN -hold home meds Hypokalemia, resolved HLD -hold home meds GERD -famotidine Diet: Will consider adding feeds today DVT ppx: Lovenox GI ppx: Famotidine Code: FULL PCP: Marilynn Dispo: Inpatient, CCU. Guarded prognosis. Addendum - Attending - Attending Attestation Date/Time: 05/17/20 3596 I personally evaluated the patient and discussed the management with Dr. Rivera. I agree with the History, Examination, Assessment and Plan documented above with any addition or exceptions noted below. Patient remains oliguric and minimally responsive despite fluid resuscitation and supportive care. Palliative discussing with family. Prognosis is guarded at this time.
[2020-05-17] MEDS: fentaNYL Citrate/PF 2,000 MCG in Sodium Chloride 0.9% 60 ML IV SCH (06:40)
[2020-05-17 07:42] LABS: Actual Bicarbonate (HCO3a) 19.1 mEq/L (22-28); Base Excess (BEa) -6.6 mEq/L (-2.0 to +3.0); Calcium, Ionized (arterial) 1.14 mmol/L (1.12-1.30); Carboxyhemoglobin (COHb) 0.7 gm% (0.0-3.0); Hemoglobin (Hb) 10.5 g/dL (12.0-16.0); O2 Tension (PaO2), arterial 121.1 mmHg (> 60.0); pH, Arterial 7.31 (7.35-7.45)
[2020-05-17 07:56] LABS: Puncture Site RRA
[2020-05-17] MEDS: Potassium Chloride 10 MEQ TAB PO SCH (08:25)
[2020-05-17] MEDS: Famotidine/PF 20 mg/2ml Vial SLOW IVP SCH (08:25)
[2020-05-17] MEDS: Azithromycin 500 MG in Sodium Chloride 0.9% 250 ML 250 ML IVPB SCH (08:25)
[2020-05-17] MEDS: Enoxaparin Sodium 40 MG/0.4 ML SYRINGE SC SCH (08:25)
--- NOTE | 2020-05-17 09:35 | RAD ---
PORTABLE CHEST 1 VIEW: Date: 05/17/2020 Time: 0413 hours HISTORY: Pneumonia, respiratory failure. COMPARISON: Previous day. FINDINGS/IMPRESSION: Endotracheal and nasogastric tubes remain in place. The heart size is stable. Diffuse bilateral infil trates are again noted without pneumothoraces or large effusions. POS: [facility]
[2020-05-17] MEDS: Cefepime 2 GM in Sodium Chloride 0.9% 100 ML IVPB SCH ×2 (10:04→21:01)
[2020-05-17] MEDS: Vancomycin HCl 1.25 GM in Sodium Chloride 0.9% 250 ML 250 ML IVPB SCH (13:10)
[2020-05-17] MEDS: Sodium Bicarbonate 70 MEQ in Sodium Chloride 0.45% 1,000 ML IV SCH (13:10)
--- NOTE | 2020-05-17 13:32 | PDOC.PALPN ---
Palliative Progress Note - Subjective Intubated/mechanical ventilation, sedation. No pressure support currently. Poor urine output. Did not respond to gentle stimulation. - Objective Vital Signs: Vital Signs - Most Recent Temp Pulse Resp BP Pulse Ox 98.4 F 99 24 H 86/55 L 99 05/17/20 11:00 05/17/20 10:20 05/17/20 12:00 05/17/20 10:20 05/17/20 10:17 - Physical Exam Constitutional: encephalitic, ill appearing HEENT: moist MMs, sclera anicteric Respiratory: no wheezing Deviation from normal: mechanical ventilation Cardiovascular: RRR Gastrointestinal: soft, non-tender Genitourinary: lang catheter Musculoskeletal: no cyanosis, no clubbing Deviation from normal: sedated, encephalopathic Skin: fragile Deviation from normal: Pallor Deviation from normal: encephalopathic - Assessment (1) Palliative care encounter Code(s): Z51.5 - ENCOUNTER FOR PALLIATIVE CARE Current Visit: Yes Status: Acute (2) Respiratory failure requiring intubation Code(s): J96.90 - RESPIRATORY FAILURE, UNSP, UNSP W HYPOXIA OR HYPERCAPNIA Current Visit: Yes Status: Acute (3) Sepsis due to pneumonia Code(s): J18.9 - PNEUMONIA, UNSPECIFIED ORGANISM; A41.9 - SEPSIS, UNSPECIFIED ORGANISM Current Visit: Yes Status: Acute (4) Status post right knee replacement Code(s): Z96.651 - PRESENCE OF RIGHT ARTIFICIAL KNEE JOINT Current Visit: Yes Status: Acute (5) UTI (urinary tract infection) Current Visit: No Status: Acute - Plan Plan: Patient has elected to designate his son Lyle as surrogate decision maker. Patients children are going to revisit resuscitation status this evening , considering transition to DNAR. Family understanding of fragile state, difficult as she has had significant decline post knee replacement. Palliative Care has established contact with patient family, providing support and through conversation to discuss goal of care paired with multiple morbidities. [] minutes spent on this encounter with >50% of the time in counseling and coordination of care. - ROS Non Response: due to endotracheal tube, due to mental status
--- NOTE | 2020-05-17 19:59 | PRG ---
DATE OF SERVICE: 05/17/2020 SUBJECTIVE: Ms. Villasenor remains mechanically ventilated. OBJECTIVE: VITAL SIGNS: Heart rate in 70s, blood pressure is 104/59, respiratory rate is 25. LUNGS: Remarkable for coarse equal breath sounds. HEART: Regular rhythm. ABDOMEN: Soft. EXTREMITIES: Without edema. LABORATORY DATA: White count 15.2, hemoglobin 7.4, platelets 374, creatinine is 0.9, BUN is 44. Intake and outputs, positive 3864 yesterday and positive 3081 today. Chest radiograph shows diffuse infiltrates. IMPRESSION: 1. Pneumonia with respiratory failure. 2. Developing renal failure clinically, although the vancomycin should be put on hold for now, given there is no conclusive evidence that this is a Staph pneumonia. Blood cultures are 1/2 positive for Staph. Two species on one blood culture arguing that this is a contaminant. Prognosis is quite guarded. Job ID: [id number]
[2020-05-17 21:01] LABS: Vancomycin, Trough 21.8 ug/mL
[2020-05-18] MEDS: Sodium Bicarbonate 70 MEQ in Sodium Chloride 0.45% 1,000 ML IV SCH ×2 (02:08→14:18)
[2020-05-18] MEDS: fentaNYL Citrate/PF 2,000 MCG in Sodium Chloride 0.9% 60 ML IV SCH (02:09)
--- NOTE | 2020-05-18 06:05 | PDOC.FM ---
- Subjective Subjective: Intubated and sedated. Does not respond to stimuli. - Objective MAR Reviewed: Yes Vital Signs & Weight: Vital Signs (12 hours) Temp Pulse Resp BP 05/18/20 03:00 98.7 F 05/18/20 02:17 91 107/64 05/17/20 23:00 98.2 F 05/17/20 21:57 87 112/60 05/17/20 21:50 24 H 05/17/20 19:50 24 H 05/17/20 19:00 98 F 05/17/20 18:15 79 104/59 L Weight Admit Weight 72.892 kg Weight 76.4 kg Most Recent Monitor Data Heart Rate from ECG 82 NIBP 109/60 NIBP BP-Mean 76 Respiration from ECG 18 SpO2 100 I&O: 05/16/20 05/17/20 05/18/20 06:59 06:59 06:59 Intake Total 4190.3 3439.0 2615.1 Output Total 326 358 326 Balance 3864.3 3081.0 2289.1 Result Diagrams: 05/18/20 06:37 05/18/20 06:37 Phys Exam - Physical Examination Constitutional: NAD HEENT: moist MMs Neck: no JVD Respiratory: no wheezing, no rales, no rhonchi, clear to auscultation bilateral Cardiovascular: RRR, no significant murmur Gastrointestinal: soft, non-tender Musculoskeletal: pulses present, edema present Skin: no rash, normal turgor Dx/Plan (1) Sepsis due to pneumonia Code(s): J18.9 - PNEUMONIA, UNSPECIFIED ORGANISM; A41.9 - SEPSIS, UNSPECIFIED ORGANISM Status: Acute (2) Status post right knee replacement Code(s): Z96.651 - PRESENCE OF RIGHT ARTIFICIAL KNEE JOINT Status: Acute (3) Anemia Code(s): D64.9 - ANEMIA, UNSPECIFIED Status: Chronic Qualifiers: Anemia type: iron deficiency Iron deficiency anemia type: unspecified iron deficiency Qualified Code(s): D50.9 - Iron deficiency anemia, unspecified (4) Hypokalemia Code(s): E87.6 - HYPOKALEMIA Status: Acute (5) GERD (gastroesophageal reflux disease) Code(s): K21.9 - GASTRO-ESOPHAGEAL REFLUX DISEASE WITHOUT ESOPHAGITIS Status: Chronic (6) HLD (hyperlipidemia) Code(s): E78.5 - HYPERLIPIDEMIA, UNSPECIFIED Status: Chronic Qualifiers: Hyperlipidemia type: unspecified Qualified Code(s): E78.5 - Hyperlipidemia , unspecified (7) HTN (hypertension) Code(s): I10 - ESSENTIAL (PRIMARY) HYPERTENSION Status: Chronic Qualifiers: Hypertension type: unspecified Qualified Code(s): I10 - Essential (primary ) hypertension (8) Osteoarthritis Code(s): M19.90 - UNSPECIFIED OSTEOARTHRITIS, UNSPECIFIED SITE Status: Chronic Qualifiers: Osteoarthritis location: multiple joints Osteoarthritis type: primary Qualified Code(s): M89.49 - Other hypertrophic osteoarthropathy, multiple sites - Plan Plan: Acute hypoxic respiratory failure and sepsis 2/2 Atypical PNA - Intubated 05/15/2020. - procal wnl, urine antigens negative, covid pcr/rvp/covid ab neg - Cefepime (05/12) and Azithromycin (05/14). Vancomycin ordered, however renal function won't tolerate. (Received 2 doses) - Pulmonology consulted, appreciate recommendations. - Palliative care consulted, appreciate assistance. Family is considering changing code status to DNAR. Will reach out to family today for decision. S/P Right Knee Replacement -surgery on 04/[address] Pierre at [facility] Anemia, worsening -Hb this morning 6.9. Will discuss transfusion with family. -likely 2/2 surgery and known iron deficiency anemia. Will monitor for source of bleeding. Possibly 2/2 hemodilution. Oliguria, worsening -despite IVF -On sodium bicarbonate HTN -hold home meds Hypokalemia, resolved HLD -hold home meds GERD -famotidine Diet: Will consider adding feeds today DVT ppx: Lovenox GI ppx: Famotidine Code: FULL PCP: Marilynn Dispo: Inpatient, CCU. Guarded prognosis. Addendum - Attending - Attending Attestation Date/Time: 05/18/20 8395 I personally evaluated the patient and discussed the management with Dr. Rivera. I agree with the History, Examination, Assessment and Plan documented above with any addition or exceptions noted below. Family meeting today to discuss care going forward. Prognosis guarded. renal function still worsening. Transfuse blood pending family decision.
[2020-05-18 06:47] LABS: Hemoglobin 6.9 g/dL (12.0-16.0); Mean Corpuscular HGB CONC 31.9 g/dL (32.0-36.0); Mean Corpuscular Hemoglobin 28.1 pg (27.0-31.0); Mean Corpuscular Volume 87.9 fL (78.0-98.0); Mean Platelet Volume 7.1 fL (7.4-10.4); Platelet Count 399 thou/uL (130-400); RBC Distribution Width 14.1 % (11.5-14.5); Red Blood Cell (RBC) Count 2.45 mill/uL (4.20-5.40); White Blood Cell (WBC) Count 18.1 thou/uL (4.8-10.8)
[2020-05-18 06:58] LABS: Actual Bicarbonate (HCO3a) 21.6 mEq/L (22-28); Base Excess (BEa) -3.6 mEq/L (-2.0 to +3.0); CO2 Tension 39.3 mmHg (35.0-45.0); Calcium, Ionized (arterial) 1.13 mmol/L (1.12-1.30); Carboxyhemoglobin (COHb) 0.7 gm% (0.0-3.0); Hemoglobin (Hb) 6.8 g/dL (12.0-16.0); Potassium - ABG Lab 3.97 mmol/L (3.70-5.30); pH, Arterial 7.36 (7.35-7.45)
[2020-05-18 07:00] LABS: ALV-art Gradient 139.075 (0-20)
[2020-05-18] MEDS: methylPREDNISolone Sod Succ 40 MG VIAL IVP SCH ×3 (07:08→17:39)
[2020-05-18 07:09] LABS: ALT (SGPT) 478 U/L (8-55); AST (SGOT) 230 U/L (5-34); Albumin 2.4 g/dL (3.4-4.8); Alkaline Phosphatase 96 U/L (40-110); Anion Gap 13 mmol/L (10-20); BUN (Urea Nitrogen) 63 mg/dL (9.8-20.1); Bilirubin, Total 0.4 mg/dL (0.2-1.2); Calc. Creatinine Clearance 39 mL/min (70-130); Calcium 7.9 mg/dL (7.8-10.44); Carbon Dioxide 20 mmol/L (23-31); Chloride 108 mmol/L (98-107); Estimated GFR-MDRD 38; Glucose 186 mg/dL (83-110); Potassium 4.2 mmol/L (3.5-5.1); Protein, Total 5.4 g/dL (6.0-8.3); Sodium 137 mmol/L (136-145)
[2020-05-18] MEDS: Enoxaparin Sodium 40 MG/0.4 ML SYRINGE SC SCH (07:20)
[2020-05-18] MEDS: Azithromycin 500 MG in Sodium Chloride 0.9% 250 ML 250 ML IVPB SCH (07:20)
[2020-05-18] MEDS: Famotidine/PF 20 mg/2ml Vial SLOW IVP SCH (07:20)
[2020-05-18] MEDS: Cefepime 2 GM in Sodium Chloride 0.9% 100 ML IVPB SCH ×2 (07:26→21:14)
--- NOTE | 2020-05-18 07:46 | RAD ---
XR Chest 1 View Portable History: Pneumonia Comparison: Radiograph prior day Findings: Slight interval improvement in multifocal airspace opacities. Heart size is enlarged. Enter ic tube tip below diaphragm although out of field of view. Impression: Slight interval improvement of lung aeration.
[2020-05-18 08:21] LABS: #Lymphocytes 1.2 thou/uL (1.20-3.40); #Monocytes 0.6 thou/uL (0.11-0.59); #Neutrophils 16.2 thou/uL (1.40-6.50); %Basophils 0.1 % (0.0-1.0); %Eosinophils 0.2 % (0.0-10.0); %Lymphocytes 6.7 % (21.0-51.0); %Monocytes 3.6 % (0.0-10.0); %Neutrophils 89.5 % (42.0-75.0); Band 3 % (5-11); Lymphocytes 2 % (21-51); MDiff Complete? YES; Monocytes 3 % (0-10); Neutrophil 92 % (42-75); Platelet Morphology Comment Appears Adequate; Polychromasia SLIGHT = 2-3 cells (100X) (0-2/hpf)
--- NOTE | 2020-05-18 13:47 | PDOC.EVN ---
Event Note - Event Note Event Note: Spoke with patient's son, Lyle. Per his conversation with their family last night, they reached the consensus that should her heart stop beating they would not want aggressive measure to be taken with CPR or chest compressions. They are aware that she is currently intubated. They would like her resuscitation status to be changed to DNAR going forward. She will remain intubated at this time. We plan to have a family discussion via [employer] tomorrow at 4pm to discuss treatment going forward and possible hospice care. We will reach out to have PC team available at that time tomorrow. Mele THAKKAR PGY2.
[2020-05-18] MEDS: Propofol 1,000 MG/100 ML VIAL IV PRN ×2 (14:18→18:45)
--- NOTE | 2020-05-18 16:20 | EKG ---
Test Reason : Blood Pressure : / mmHG Vent. Rate : 116 BPM Atrial Rate : 116 BPM P-R Int : 158 ms QRS Dur : 074 ms QT Int : 330 ms P-R-T Axes : 002 007 002 degrees QTc Int : 458 ms Sinus tachycardia Possible Left atrial enlargement Borderline ECG Confirmed by ENDER THAKKAR, ALEX Hernandez ([id number]), film or videotape editor KIANA MARY ([id number]) on 05/18/2020 4:19:22 PM Referred By: Confirmed By:ALEX HANDLEY MD
--- NOTE | 2020-05-18 19:46 | PRG ---
DATE OF SERVICE: 05/18/2020 SUBJECTIVE: Estelle Villasenor is sedated from mechanical ventilation. OBJECTIVE: VITAL SIGNS: Blood pressure 115/61, heart rate is in the 70s, and respiratory rates in the 20s. HEAD AND NECK: Unchanged. LUNGS: Remarkable for coarse equal breath sounds. HEART: Regular rhythm. ABDOMEN: Soft. EXTREMITIES: Without edema. Intake and output; positive 3081 yesterday, 3223 today. Urine output was at 3666. LABORATORY DATA: White count is 18.1, hemoglobin 6.9, and platelets 399. Electrolytes are unremarkable. BUN 63, creatinine 1.3. IMPRESSION: 1. Respiratory failure, secondary to pneumonia. 2. Adult respiratory distress syndrome. 3. Acute renal failure. She will likely need dialysis and transfusion. Her chances of the survival given the development of renal failure is extremely small. Job ID: [id number]
[2020-05-19] MEDS: methylPREDNISolone Sod Succ 40 MG VIAL IVP SCH ×5 (01:05→23:12)
[2020-05-19] MEDS: Propofol 1,000 MG/100 ML VIAL IV PRN ×4 (02:07→21:21)
--- NOTE | 2020-05-19 05:29 | PDOC.FM ---
- Subjective Subjective: Intubated and sedated. - Objective MAR Reviewed: Yes Vital Signs & Weight: Vital Signs (12 hours) Temp Pulse Resp Pulse Ox 05/19/20 04:17 96 05/19/20 03:00 98.5 F 05/19/20 01:54 96 24 H 100 05/19/20 00:25 95 05/18/20 23:00 98.3 F 05/18/20 22:45 82 24 H 99 05/18/20 22:00 26 H 05/18/20 20:00 26 H 05/18/20 19:53 77 05/18/20 19:00 98.1 F Weight Admit Weight 72.892 kg Weight 76.4 kg Most Recent Monitor Data Heart Rate from ECG 94 NIBP 118/63 NIBP BP-Mean 81 Respiration from ECG 18 SpO2 100 I&O: 05/17/20 05/18/20 05/19/20 06:59 06:59 06:59 Intake Total 3439.0 3589.1 2767.3 Output Total 358 366 710 Balance 3081.0 3223.1 2057.3 Result Diagrams: 05/19/20 05:44 05/19/20 05:44 Phys Exam - Physical Examination Constitutional: NAD HEENT: moist MMs Neck: no JVD, supple Respiratory: no wheezing, no rales, no rhonchi, clear to auscultation bilateral Cardiovascular: RRR, no significant murmur, no rub Gastrointestinal: soft, no distention, positive bowel sounds Musculoskeletal: no edema Skin: no rash, normal turgor Dx/Plan (1) Sepsis due to pneumonia Code(s): J18.9 - PNEUMONIA, UNSPECIFIED ORGANISM; A41.9 - SEPSIS, UNSPECIFIED ORGANISM Status: Acute (2) Status post right knee replacement Code(s): Z96.651 - PRESENCE OF RIGHT ARTIFICIAL KNEE JOINT Status: Acute (3) Anemia Code(s): D64.9 - ANEMIA, UNSPECIFIED Status: Chronic Qualifiers: Anemia type: iron deficiency Iron deficiency anemia type: unspecified iron deficiency Qualified Code(s): D50.9 - Iron deficiency anemia, unspecified (4) Hypokalemia Code(s): E87.6 - HYPOKALEMIA Status: Acute (5) GERD (gastroesophageal reflux disease) Code(s): K21.9 - GASTRO-ESOPHAGEAL REFLUX DISEASE WITHOUT ESOPHAGITIS Status: Chronic (6) HLD (hyperlipidemia) Code(s): E78.5 - HYPERLIPIDEMIA, UNSPECIFIED Status: Chronic Qualifiers: Hyperlipidemia type: unspecified Qualified Code(s): E78.5 - Hyperlipidemia , unspecified (7) HTN (hypertension) Code(s): I10 - ESSENTIAL (PRIMARY) HYPERTENSION Status: Chronic Qualifiers: Hypertension type: unspecified Qualified Code(s): I10 - Essential (primary ) hypertension (8) Osteoarthritis Code(s): M19.90 - UNSPECIFIED OSTEOARTHRITIS, UNSPECIFIED SITE Status: Chronic Qualifiers: Osteoarthritis location: multiple joints Osteoarthritis type: primary Qualified Code(s): M89.49 - Other hypertrophic osteoarthropathy, multiple sites - Plan Plan: Acute hypoxic respiratory failure and sepsis 2/2 Atypical PNA - Intubated 05/15/2020. - procal wnl, urine antigens negative, covid pcr/rvp/covid ab neg - Cefepime (05/12) and Azithromycin (05/14). Vancomycin ordered, however renal function won't tolerate. (Received 2 doses) - Pulmonology consulted, appreciate recommendations. - Palliative care consulted, appreciate assistance. Family changed code status to DNAR 05/18. Will have family meeting to discuss halfway goals and prognosis this afternoon. Anemia, worsening -Hb this morning 6.9. Will discuss transfusion with family. -likely 2/2 surgery and known iron deficiency anemia. Will monitor for source of bleeding. Possibly 2/2 hemodilution. Oliguria, worsening Acute renal failure -despite IVF -On sodium bicarbonate -If family does not move toward hospice/palliative measures today, we will have to consider dialysis. HTN, HLD -hold home meds GERD -famotidine S/P Right Knee Replacement -surgery on 04/[address] Pierre at [facility] Diet: Will consider adding feeds today DVT ppx: Lovenox GI ppx: Famotidine Code: DNAR PCP: Marilynn Dispo: Inpatient, CCU. Guarded prognosis. A/P - Problem (1) Sepsis due to pneumonia Current Visit: Yes Code(s): J18.9 - PNEUMONIA, UNSPECIFIED ORGANISM; A41.9 - SEPSIS, UNSPECIFIED ORGANISM Status: Acute (2) Status post right knee replacement Current Visit: Yes Code(s): Z96.651 - PRESENCE OF RIGHT ARTIFICIAL KNEE JOINT Status: Acute (3) Anemia Current Visit: Yes Code(s): D64.9 - ANEMIA, UNSPECIFIED Status: Chronic Qualifiers: Anemia type: iron deficiency Iron deficiency anemia type: unspecified iron deficiency Qualified Code(s): D50.9 - Iron deficiency anemia, unspecified (4) Hypokalemia Current Visit: No Code(s): E87.6 - HYPOKALEMIA Status: Acute (5) GERD (gastroesophageal reflux disease) Current Visit: No Code(s): K21.9 - GASTRO-ESOPHAGEAL REFLUX DISEASE WITHOUT ESOPHAGITIS Status: Chronic (6) HLD (hyperlipidemia) Current Visit: No Code(s): E78.5 - HYPERLIPIDEMIA, UNSPECIFIED Status: Chronic Qualifiers: Hyperlipidemia type: unspecified Qualified Code(s): E78.5 - Hyperlipidemia , unspecified (7) HTN (hypertension) Current Visit: No Code(s): I10 - ESSENTIAL (PRIMARY) HYPERTENSION Status: Chronic Qualifiers: Hypertension type: unspecified Qualified Code(s): I10 - Essential (primary ) hypertension (8) Osteoarthritis Current Visit: No Code(s): M19.90 - UNSPECIFIED OSTEOARTHRITIS, UNSPECIFIED SITE Status: Chronic Qualifiers: Osteoarthritis location: multiple joints Osteoarthritis type: primary Qualified Code(s): M89.49 - Other hypertrophic osteoarthropathy, multiple sites Addendum - Attending - Attending Attestation Date/Time: 05/19/20 2116 I personally evaluated the patient and discussed the management with Dr. Rivera. I agree with the History, Examination, Assessment and Plan documented above with any addition or exceptions noted below. Cr and UOP improving. Will d/c cefepime and complete 5 day course of azithro. Family meeting today to discuss GOC. Awaiting pulm recs.
[2020-05-19] MEDS: Sodium Bicarbonate 70 MEQ in Sodium Chloride 0.45% 1,000 ML IV SCH ×2 (05:54→17:19)
[2020-05-19] MEDS: fentaNYL Citrate/PF 2,000 MCG in Sodium Chloride 0.9% 60 ML IV SCH (05:59)
[2020-05-19 06:02] LABS: #Lymphocytes 1.2 thou/uL (1.20-3.40); #Monocytes 0.8 thou/uL (0.11-0.59); #Neutrophils 15.6 thou/uL (1.40-6.50); %Basophils 0.3 % (0.0-1.0); %Eosinophils 0.2 % (0.0-10.0); %Lymphocytes 6.9 % (21.0-51.0); %Monocytes 4.4 % (0.0-10.0); %Neutrophils 88.2 % (42.0-75.0); Hemoglobin 6.5 g/dL (12.0-16.0); Mean Corpuscular HGB CONC 30.9 g/dL (32.0-36.0); Mean Corpuscular Hemoglobin 27.7 pg (27.0-31.0); Mean Corpuscular Volume 89.6 fL (78.0-98.0); Mean Platelet Volume 7.4 fL (7.4-10.4); Platelet Count 385 thou/uL (130-400); RBC Distribution Width 14.3 % (11.5-14.5); Red Blood Cell (RBC) Count 2.33 mill/uL (4.20-5.40); White Blood Cell (WBC) Count 17.7 thou/uL (4.8-10.8)
[2020-05-19 06:20] LABS: ALT (SGPT) 352 U/L (8-55); AST (SGOT) 88 U/L (5-34); Albumin 2.2 g/dL (3.4-4.8); Alkaline Phosphatase 90 U/L (40-110); Anion Gap 12 mmol/L (10-20); BUN (Urea Nitrogen) 66 mg/dL (9.8-20.1); Bilirubin, Total 0.3 mg/dL (0.2-1.2); Calc. Creatinine Clearance 43 mL/min (70-130); Calcium 7.7 mg/dL (7.8-10.44); Carbon Dioxide 21 mmol/L (23-31); Chloride 108 mmol/L (98-107); Estimated GFR-MDRD 42; Globulin 2.8 g/dL (2.4-3.5); Glucose 173 mg/dL (83-110); Potassium 4.1 mmol/L (3.5-5.1); Sodium 137 mmol/L (136-145)
[2020-05-19] MEDS: Enoxaparin Sodium 40 MG/0.4 ML SYRINGE SC SCH (07:11)
[2020-05-19] MEDS: Famotidine/PF 20 mg/2ml Vial SLOW IVP SCH (07:11)
[2020-05-19] MEDS: Cefepime 2 GM in Sodium Chloride 0.9% 100 ML IVPB SCH (07:13)
[2020-05-19 07:14] LABS: Actual Bicarbonate (HCO3a) 23.2 mEq/L (22-28); Base Excess (BEa) -2.4 mEq/L (-2.0 to +3.0); CO2 Tension 43.2 mmHg (35.0-45.0); Calcium, Ionized (arterial) 1.13 mmol/L (1.12-1.30); Carboxyhemoglobin (COHb) 0.7 gm% (0.0-3.0); Hemoglobin (Hb) 7.8 g/dL (12.0-16.0); O2 Tension (PaO2), arterial 70.7 mmHg (> 60.0); Potassium - ABG Lab 4.07 mmol/L (3.70-5.30); pH, Arterial 7.35 (7.35-7.45)
[2020-05-19 07:15] LABS: Puncture Site RRA
[2020-05-19] MEDS: Azithromycin 500 MG in Sodium Chloride 0.9% 250 ML 250 ML IVPB SCH (07:54)
--- NOTE | 2020-05-19 07:56 | RAD ---
EXAM: Single view of the chest HISTORY: Pneumonia COMPARISON: 05/18/2020 FINDINGS: Single view of the chest shows a normal sized cardiomediastinal silhouette. The endotrache al tube and NG tube are unchanged in position. Increased interstitial lung markings are seen in both lung bases. Degenerative changes are seen in the spine. IMPRESSION: Stable exam
--- NOTE | 2020-05-19 09:52 | PRG ---
DATE OF SERVICE: 05/19/2020 SUBJECTIVE: Estelle Villasenor's urine output is picking up. OBJECTIVE: VITAL SIGNS: Heart rate is in 80s, blood pressure , and FiO2 is 40. Peak airway pressure is in the 20s. LUNGS: Remarkable for coarse equal breath sounds. HEART: Regular rhythm. ABDOMEN: Soft. EXTREMITIES: Without asymmetry or edema. LABORATORY DATA: White count 17.7, hemoglobin 6.5, and platelets 385. Transfusion has been ordered. Sodium 137, potassium 4.1, chloride 108, bicarb 21, BUN 66, creatinine 1.23, which is an improvement. IMPRESSION: 1. Pneumonia with acute respiratory distress syndrome. 2. Volume overload with improving renal function. 3. Do not resuscitate status. 4. . 5. Transient decline in renal function that appears to now be improving. 6. Anemia, to get a transfusion today. PLAN: Continue supportive care, currently not weanable. PH of 7.35, CO2 of 43, and pO2 of 70. We can probably tomorrow start decreasing ventilatory support. CRITICAL CARE TIME: 30 minutes. Job ID: [id number]
--- NOTE | 2020-05-19 17:27 | PDOC.BPN ---
- Brief Progress Note Had family discussion this afternoon about the condition of the patient and goals of care. We are encouraged by her increased urine output. They would like to see how the trial of weaning the ventilator goes tomorrow. If she is not weanable they may be amenable to hospice/palliative measures. They at first said yes to the idea of tracheostomy, however later in the discussion they said they would want her to pass peacefully and naturally if it were time. This will need to be revisited if she is not weanable. They confirmed DNAR status. We will discuss further tomorrow.
[2020-05-20] MEDS: Propofol 1,000 MG/100 ML VIAL IV PRN ×4 (03:34→21:44)
[2020-05-20] MEDS: methylPREDNISolone Sod Succ 40 MG VIAL IVP SCH ×3 (05:18→17:32)
--- NOTE | 2020-05-20 05:34 | PDOC.FM ---
- Subjective Subjective: Intubated and sedated. Within minutes of turning sedation off she begins coughing significantly. - Objective MAR Reviewed: Yes Vital Signs & Weight: Vital Signs (12 hours) Temp Pulse Resp Pulse Ox 05/20/20 03:27 80 05/20/20 01:45 77 24 H 100 05/20/20 01:44 79 05/19/20 23:00 98.4 F 05/19/20 22:00 30 H 05/19/20 21:30 105 H 24 H 94 L 05/19/20 21:27 88 05/19/20 19:00 97.8 F 05/19/20 18:11 76 24 H 98 05/19/20 18:09 91 Weight Admit Weight 72.892 kg Weight 76.4 kg Most Recent Monitor Data Heart Rate from ECG 81 NIBP 148/73 NIBP BP-Mean 98 Respiration from ECG 22 SpO2 97 I&O: 05/18/20 05/19/20 05/20/20 06:59 06:59 06:59 Intake Total 3589.1 3536.3 2247.4 Output Total 366 795 875 Balance 3223.1 2741.3 1372.4 Result Diagrams: 05/20/20 06:58 05/20/20 06:58 Phys Exam - Physical Examination Constitutional: NAD HEENT: PERRLA, moist MMs Neck: no JVD, supple Respiratory: no wheezing, no rales, clear to auscultation bilateral Cardiovascular: RRR, no significant murmur Gastrointestinal: soft, non-tender Musculoskeletal: edema present Skin: no rash, normal turgor Dx/Plan (1) Sepsis due to pneumonia Code(s): J18.9 - PNEUMONIA, UNSPECIFIED ORGANISM; A41.9 - SEPSIS, UNSPECIFIED ORGANISM Status: Acute (2) Status post right knee replacement Code(s): Z96.651 - PRESENCE OF RIGHT ARTIFICIAL KNEE JOINT Status: Acute (3) Anemia Code(s): D64.9 - ANEMIA, UNSPECIFIED Status: Chronic Qualifiers: Anemia type: iron deficiency Iron deficiency anemia type: unspecified iron deficiency Qualified Code(s): D50.9 - Iron deficiency anemia, unspecified (4) Hypokalemia Code(s): E87.6 - HYPOKALEMIA Status: Acute (5) GERD (gastroesophageal reflux disease) Code(s): K21.9 - GASTRO-ESOPHAGEAL REFLUX DISEASE WITHOUT ESOPHAGITIS Status: Chronic (6) HLD (hyperlipidemia) Code(s): E78.5 - HYPERLIPIDEMIA, UNSPECIFIED Status: Chronic Qualifiers: Hyperlipidemia type: unspecified Qualified Code(s): E78.5 - Hyperlipidemia , unspecified (7) HTN (hypertension) Code(s): I10 - ESSENTIAL (PRIMARY) HYPERTENSION Status: Chronic Qualifiers: Hypertension type: unspecified Qualified Code(s): I10 - Essential (primary ) hypertension (8) Osteoarthritis Code(s): M19.90 - UNSPECIFIED OSTEOARTHRITIS, UNSPECIFIED SITE Status: Chronic Qualifiers: Osteoarthritis location: multiple joints Osteoarthritis type: primary Qualified Code(s): M89.49 - Other hypertrophic osteoarthropathy, multiple sites - Plan Plan: Acute hypoxic respiratory failure and sepsis 2/2 Atypical PNA - Intubated 05/15/2020. - Pulmonology consulted, appreciate recommendations. Dr. Villavicencio stated she may be able to wean off vent, we will begin today. - Palliative care consulted, appreciate assistance. Family changed code status to DNAR 05/18. Per family meeting 05/19, if unweanable we will discuss binding cementer french cord options including hospice. - Discontinued: Cefepime (05/12-05/19) and Azithromycin (05/14-05/20). Vancomycin ordered, however renal function won't tolerate. (Received 2 doses) Anemia - s/p 1u PRBC 05/19. -repeat cbc this morning. Oliguria, improving Acute renal failure, improving -D/c sodium bicarb. -Will closely monitor. Hyperkalemia -5.4. Will monitor. HTN, HLD -hold home meds GERD -famotidine S/P Right Knee Replacement -surgery on 04/[address] Pierre at [facility] Diet: On tube feeds DVT ppx: Lovenox GI ppx: Famotidine Code: DNAR PCP: Marilynn Dispo: Inpatient, CCU. Guarded prognosis. A/P - Problem (1) Sepsis due to pneumonia Current Visit: Yes Code(s): J18.9 - PNEUMONIA, UNSPECIFIED ORGANISM; A41.9 - SEPSIS, UNSPECIFIED ORGANISM Status: Acute (2) Status post right knee replacement Current Visit: Yes Code(s): Z96.651 - PRESENCE OF RIGHT ARTIFICIAL KNEE JOINT Status: Acute (3) Anemia Current Visit: Yes Code(s): D64.9 - ANEMIA, UNSPECIFIED Status: Chronic Qualifiers: Anemia type: iron deficiency Iron deficiency anemia type: unspecified iron deficiency Qualified Code(s): D50.9 - Iron deficiency anemia, unspecified (4) Hypokalemia Current Visit: No Code(s): E87.6 - HYPOKALEMIA Status: Acute (5) GERD (gastroesophageal reflux disease) Current Visit: No Code(s): K21.9 - GASTRO-ESOPHAGEAL REFLUX DISEASE WITHOUT ESOPHAGITIS Status: Chronic (6) HLD (hyperlipidemia) Current Visit: No Code(s): E78.5 - HYPERLIPIDEMIA, UNSPECIFIED Status: Chronic Qualifiers: Hyperlipidemia type: unspecified Qualified Code(s): E78.5 - Hyperlipidemia , unspecified (7) HTN (hypertension) Current Visit: No Code(s): I10 - ESSENTIAL (PRIMARY) HYPERTENSION Status: Chronic Qualifiers: Hypertension type: unspecified Qualified Code(s): I10 - Essential (primary ) hypertension (8) Osteoarthritis Current Visit: No Code(s): M19.90 - UNSPECIFIED OSTEOARTHRITIS, UNSPECIFIED SITE Status: Chronic Qualifiers: Osteoarthritis location: multiple joints Osteoarthritis type: primary Qualified Code(s): M89.49 - Other hypertrophic osteoarthropathy, multiple sites Addendum - Attending - Attending Attestation Date/Time: 05/20/20 5946 I personally evaluated the patient and discussed the management with Dr. Rivera. I agree with the History, Examination, Assessment and Plan documented above with any addition or exceptions noted below. Awaiting vent weaning trial with pulm. Will f/u with family regarding trach/peg if she is unable to come off the ventilator. renal function steadily improving but now K+ trending up. Repeat this afternoon.
[2020-05-20 07:08] LABS: Hemoglobin 8.1 g/dL (12.0-16.0); Mean Corpuscular HGB CONC 31.9 g/dL (32.0-36.0); Mean Corpuscular Hemoglobin 27.7 pg (27.0-31.0); Mean Corpuscular Volume 86.8 fL (78.0-98.0); Mean Platelet Volume 7.5 fL (7.4-10.4); Platelet Count 347 thou/uL (130-400); Red Blood Cell (RBC) Count 2.94 mill/uL (4.20-5.40); White Blood Cell (WBC) Count 18.9 thou/uL (4.8-10.8)
[2020-05-20 07:12] LABS: Actual Bicarbonate (HCO3a) 24.6 mEq/L (22-28); Base Excess (BEa) -0.2 mEq/L (-2.0 to +3.0); CO2 Tension 40.9 mmHg (35.0-45.0); Calcium, Ionized (arterial) 1.16 mmol/L (1.12-1.30); Carboxyhemoglobin (COHb) 0.7 gm% (0.0-3.0); Hemoglobin (Hb) 9.1 g/dL (12.0-16.0); O2 Tension (PaO2), arterial 79.9 mmHg (> 60.0); Potassium - ABG Lab 4.32 mmol/L (3.70-5.30)
[2020-05-20 07:14] LABS: Puncture Site RRA
[2020-05-20 07:15] LABS: ALV-art Gradient 154.175 (0-20)
[2020-05-20 07:31] LABS: ALT (SGPT) 253 U/L (8-55); AST (SGOT) 44 U/L (5-34); Albumin 2.3 g/dL (3.4-4.8); Alkaline Phosphatase 86 U/L (40-110); Anion Gap 16 mmol/L (10-20); BUN (Urea Nitrogen) 68 mg/dL (9.8-20.1); Bilirubin, Total 0.3 mg/dL (0.2-1.2); Calc. Creatinine Clearance 50 mL/min (70-130); Calcium 7.8 mg/dL (7.8-10.44); Carbon Dioxide 19 mmol/L (23-31); Chloride 109 mmol/L (98-107); Estimated GFR-MDRD 44; Globulin 2.7 g/dL (2.4-3.5); Glucose 156 mg/dL (83-110); Potassium 5.4 mmol/L (3.5-5.1); Sodium 139 mmol/L (136-145)
--- NOTE | 2020-05-20 07:54 | RAD ---
EXAM: Single view of the chest HISTORY: Pneumonia COMPARISON: 05/19/2020 FINDINGS: Single view of the chest shows an enlarged cardiomediastinal silhouette. The endotracheal tube is unchanged in position. NG tube is unchanged in position. There are diffuse mixed alveolar/interstitial opacities. Degenerative changes are seen in the spine. The patient is status po st right shoulder arthroplasty. IMPRESSION: Stable multifocal infiltrates
[2020-05-20 08:31] LABS: Band 11 % (5-11); Lymphocytes 6 % (21-51); MDiff Complete? YES; Monocytes 3 % (0-10); Neutrophil 80 % (42-75); Platelet Morphology Comment Appears Adequate; Polychromasia SLIGHT = 2-3 cells (100X) (0-2/hpf)
[2020-05-20] MEDS: Azithromycin 500 MG in Sodium Chloride 0.9% 250 ML 250 ML IVPB SCH (08:51)
[2020-05-20] MEDS: Enoxaparin Sodium 40 MG/0.4 ML SYRINGE SC SCH (08:51)
[2020-05-20] MEDS: Famotidine/PF 20 mg/2ml Vial SLOW IVP SCH (08:51)
[2020-05-20] MEDS ORDERED: Furosemide 20 MG/2 ML VIAL SLOW IVP SCH (09:45)
[2020-05-20] MEDS: fentaNYL Citrate/PF 2,000 MCG in Sodium Chloride 0.9% 60 ML IV SCH (11:45)
[2020-05-20 15:15] LABS: Anion Gap 14 mmol/L (10-20); BUN (Urea Nitrogen) 72 mg/dL (9.8-20.1); Calc. Creatinine Clearance 50 mL/min (70-130); Calcium 7.2 mg/dL (7.8-10.44); Carbon Dioxide 20 mmol/L (23-31); Chloride 114 mmol/L (98-107); Estimated GFR-MDRD 45; Glucose 158 mg/dL (83-110); Potassium 7.4 mmol/L (3.5-5.1); Sodium 141 mmol/L (136-145)
[2020-05-20 15:51] LABS: Actual Bicarbonate (HCO3a) 23.1 mEq/L (22-28); Base Excess (BEa) -1.5 mEq/L (-2.0 to +3.0); CO2 Tension 37.9 mmHg (35.0-45.0); Calcium, Ionized (arterial) 1.16 mmol/L (1.12-1.30); Carboxyhemoglobin (COHb) 0.3 gm% (0.0-3.0); Hemoglobin (Hb) 9.6 g/dL (12.0-16.0); O2 Tension (PaO2), arterial 79.8 mmHg (> 60.0); Potassium - ABG Lab 4.45 mmol/L (3.70-5.30)
[2020-05-20 15:52] LABS: Puncture Site RRA
[2020-05-20 15:53] LABS: ALV-art Gradient 156.025 (0-20)
[2020-05-20] MEDS ORDERED: Labetalol HCl 100 MG/20 ML VIAL SLOW IVP PRN (21:29)
[2020-05-20] MEDS: Lorazepam 2 MG/ML VIAL SLOW IVP PRN (22:28)
--- NOTE | 2020-05-20 22:53 | PRG ---
DATE OF SERVICE: 05/20/2020 SUBJECTIVE: Estelle Villasenor had stabilization of her renal function clinically, but from a weaning standpoint she is quite weak. Her static compliance is around 25, so the anticipated work of breathing would be significant. The lungs and abdomen are essentially unchanged. She gets very tachypneic and starts coughing continuously, her sedation is held. LABORATORY DATA: White count 18.9, hemoglobin 8.1, platelets 347. Sodium 139, potassium 5.4, chloride 109, bicarb 19, BUN of 68, creatinine 1.17. Blood gas this morning pH , CO2 37, pO2 79, potassium 4.4 on blood gas. IMPRESSION: 1. Respiratory failure. 2. [id number] kidney disease with improvement in her urinary output and stabilization of rising creatinine. 3. Blood loss anemia, status post transfusion. 4. Deconditioning. 5. Status post knee surgery with an incision that is not erythematous. 6. Pneumonia . This will be a slow process. If she is not weanable by early next week, she needs to be considered for tracheostomy. Job ID: [id number]
[2020-05-21] MEDS: methylPREDNISolone Sod Succ 40 MG VIAL IVP SCH ×5 (00:20→23:48)
[2020-05-21] MEDS: Propofol 1,000 MG/100 ML VIAL IV PRN ×4 (03:43→21:59)
[2020-05-21 04:50] LABS: ALT (SGPT) 202 U/L (8-55); AST (SGOT) 31 U/L (5-34); Albumin 2.5 g/dL (3.4-4.8); Alkaline Phosphatase 92 U/L (40-110); Anion Gap 13 mmol/L (10-20); BUN (Urea Nitrogen) 67 mg/dL (9.8-20.1); Bilirubin, Total 0.5 mg/dL (0.2-1.2); Calc. Creatinine Clearance 50 mL/min (70-130); Carbon Dioxide 26 mmol/L (23-31); Chloride 106 mmol/L (98-107); Estimated GFR-MDRD 44; Globulin 2.7 g/dL (2.4-3.5); Glucose 143 mg/dL (83-110); Potassium 4.7 mmol/L (3.5-5.1); Protein, Total 5.2 g/dL (6.0-8.3); Sodium 140 mmol/L (136-145)
[2020-05-21 04:59] LABS: Band 5 % (5-11); Hemoglobin 8.7 g/dL (12.0-16.0); Lymphocytes 6 % (21-51); MDiff Complete? YES; Mean Corpuscular HGB CONC 32.6 g/dL (32.0-36.0); Mean Corpuscular Hemoglobin 28.7 pg (27.0-31.0); Mean Corpuscular Volume 88.2 fL (78.0-98.0); Mean Platelet Volume 7.6 fL (7.4-10.4); Monocytes 1 % (0-10); Myelocyte 3 % (0-0); Neutrophil 85 % (42-75); Nucleated RBC 3 % (0); Platelet Count 350 thou/uL (130-400); RBC Distribution Width 14.2 % (11.5-14.5); Red Blood Cell (RBC) Count 3.03 mill/uL (4.20-5.40); White Blood Cell (WBC) Count 21.4 thou/uL (4.8-10.8)
--- NOTE | 2020-05-21 05:49 | PDOC.FM ---
- Subjective Subjective: Intubated and sedated. - Objective MAR Reviewed: Yes Vital Signs & Weight: Vital Signs (12 hours) Temp Pulse Resp Pulse Ox 05/21/20 04:00 97.7 F 26 H 05/21/20 03:09 79 24 H 100 05/21/20 02:00 24 H 05/21/20 00:00 98.1 F 24 H 05/20/20 22:00 24 H 05/20/20 21:45 97 24 H 100 05/20/20 20:00 98.3 F 24 H 100 05/20/20 18:44 86 24 H 95 05/20/20 18:00 24 H Weight Admit Weight 72.892 kg Weight 84.6 kg Most Recent Monitor Data Heart Rate from ECG 84 NIBP 126/68 NIBP BP-Mean 87 Respiration from ECG 21 SpO2 100 I&O: 05/19/20 05/20/20 05/21/20 06:59 06:59 06:59 Intake Total 3536.3 3226.4 1149 Output Total 795 1085 1585 Balance 2741.3 2141.4 -436 Result Diagrams: 05/21/20 03:35 05/21/20 03:35 Phys Exam - Physical Examination Constitutional: NAD HEENT: moist MMs Neck: no JVD, supple Respiratory: no wheezing, no rales, no rhonchi, clear to auscultation bilateral Cardiovascular: RRR, no significant murmur Gastrointestinal: soft, non-tender Musculoskeletal: edema present Skin: no rash, normal turgor Dx/Plan (1) Sepsis due to pneumonia Code(s): J18.9 - PNEUMONIA, UNSPECIFIED ORGANISM; A41.9 - SEPSIS, UNSPECIFIED ORGANISM Status: Acute (2) Status post right knee replacement Code(s): Z96.651 - PRESENCE OF RIGHT ARTIFICIAL KNEE JOINT Status: Acute (3) Anemia Code(s): D64.9 - ANEMIA, UNSPECIFIED Status: Chronic Qualifiers: Anemia type: iron deficiency Iron deficiency anemia type: unspecified iron deficiency Qualified Code(s): D50.9 - Iron deficiency anemia, unspecified (4) Hypokalemia Code(s): E87.6 - HYPOKALEMIA Status: Acute (5) GERD (gastroesophageal reflux disease) Code(s): K21.9 - GASTRO-ESOPHAGEAL REFLUX DISEASE WITHOUT ESOPHAGITIS Status: Chronic (6) HLD (hyperlipidemia) Code(s): E78.5 - HYPERLIPIDEMIA, UNSPECIFIED Status: Chronic Qualifiers: Hyperlipidemia type: unspecified Qualified Code(s): E78.5 - Hyperlipidemia , unspecified (7) HTN (hypertension) Code(s): I10 - ESSENTIAL (PRIMARY) HYPERTENSION Status: Chronic Qualifiers: Hypertension type: unspecified Qualified Code(s): I10 - Essential (primary ) hypertension (8) Osteoarthritis Code(s): M19.90 - UNSPECIFIED OSTEOARTHRITIS, UNSPECIFIED SITE Status: Chronic Qualifiers: Osteoarthritis location: multiple joints Osteoarthritis type: primary Qualified Code(s): M89.49 - Other hypertrophic osteoarthropathy, multiple sites - Plan Plan: Acute hypoxic respiratory failure and sepsis 2/2 Atypical PNA - Intubated 05/15/2020. - Pulmonology consulted, appreciate recommendations. Attempting to wean ventilator. - Palliative care consulted, appreciate assistance. Family changed code status to DNAR 05/18. Per family meeting 05/19 and conversation 05/20, family DOES NOT want trach/ peg. If she is unweanable from ventilator next week we will discuss extubation and palliative care. - Discontinued: Cefepime (05/12-05/19) and Azithromycin (05/14-05/20). Vancomycin ordered, however renal function won't tolerate. (Received 2 doses) Anemia - s/p 1u PRBC 05/19. Acute kidney injury, stable, improving. Cr 1.17 Hyperkalemia -resolved HTN, HLD -hold home meds GERD -famotidine S/P Right Knee Replacement -surgery on 04/[address] Pierre at [facility] Diet: On tube feeds DVT ppx: Lovenox GI ppx: Famotidine Code: DNAR PCP: Marilynn Dispo: Inpatient, CCU. Guarded prognosis. Addendum - Attending - Attending Attestation Date/Time: 05/21/20 1237 I personally evaluated the patient and discussed the management with Dr. Rivera. I agree with the History, Examination, Assessment and Plan documented above with any addition or exceptions noted below. elevated K+ 2/2 to hemolysis. Still not weanable. Will continue to gently diurese with IV lasix since she is clinically overloaded. Will monitor over the weekend and f/u with family on Sunday.
[2020-05-21] MEDS: fentaNYL Citrate/PF 2,000 MCG in Sodium Chloride 0.9% 60 ML IV SCH ×2 (05:50→21:53)
[2020-05-21 06:57] LABS: Actual Bicarbonate (HCO3a) 25.7 mEq/L (22-28); Base Excess (BEa) 0.2 mEq/L (-2.0 to +3.0); Calcium, Ionized (arterial) 1.17 mmol/L (1.12-1.30); Carboxyhemoglobin (COHb) 0.9 gm% (0.0-3.0); Hemoglobin (Hb) 10.5 g/dL (12.0-16.0); Potassium - ABG Lab 4.65 mmol/L (3.70-5.30); pH, Arterial 7.37 (7.35-7.45)
[2020-05-21 07:17] LABS: Puncture Site RRAD
--- NOTE | 2020-05-21 08:48 | RAD ---
PORTABLE CHEST 1 VIEW: Date: 05/21/2020 Time: 0518 hours HISTORY: Pneumonia, respiratory failure. COMPARISON: Previous day. FINDINGS: Endotracheal and nasogastric tubes remain in place. The heart size is stable. Diffuse bilateral inter stitial and alveolar opacities are again seen. No pneumothoraces or large effusions are identified. IMPRESSION: Stable exam. POS: EBONIE
[2020-05-21] MEDS ORDERED: Furosemide 20 MG/2 ML VIAL SLOW IVP SCH (09:45)
[2020-05-21] MEDS: Famotidine/PF 20 mg/2ml Vial SLOW IVP SCH (09:51)
[2020-05-21] MEDS: Azithromycin 500 MG in Sodium Chloride 0.9% 250 ML 250 ML IVPB SCH (09:51)
[2020-05-21] MEDS: Enoxaparin Sodium 40 MG/0.4 ML SYRINGE SC SCH (09:51)
--- NOTE | 2020-05-21 10:48 | PRG ---
DATE OF SERVICE: 05/21/2020 SUBJECTIVE: Ms. Villasenor remains mechanically ventilated. Apparently, family does not want a trach or a PEG. OBJECTIVE: VITAL SIGNS: She is afebrile. Respiratory rates in the 20s, blood pressure 120/57. GENERAL: She coughs when she is not sedated. LUNGS: Remarkable for breath sounds. HEART: Regular rhythm. ABDOMEN: Soft. EXTREMITIES: Unchanged. LABORATORY DATA: White count 21.4, hemoglobin 8.7, platelets 350. Sodium 140, potassium 4.7, chloride 106, bicarb 26, BUN 67, creatinine 1.17. IMPRESSION AND PLAN: 1. Pneumonia with acute respiratory distress syndrome, slowly improving. She is COVID negative. 2. Vhvyk-ke-iyzbmso kidney disease with improving renal function. She almost reached a point of anuria, but her renal function is stabilized. 3. Advanced age with deconditioning, which is the likely factor that will play the biggest role on whether or not she survives this. Hopefully, by the first part of the next week, we can consider extubation and no re-intubation. She will remain mechanically ventilated with the slow decreases in ventilatory support over the weekend and adjustments in her sedation. Job ID: [id number]
[2020-05-21 13:39] VITALS: BMI 32.7
[2020-05-22] MEDS: Propofol 1,000 MG/100 ML VIAL IV PRN ×4 (04:12→23:25)
[2020-05-22 05:11] LABS: ALT (SGPT) 154 U/L (8-55); AST (SGOT) 28 U/L (5-34); Albumin 2.5 g/dL (3.4-4.8); Alkaline Phosphatase 91 U/L (40-110); Anion Gap 10 mmol/L (10-20); BUN (Urea Nitrogen) 71 mg/dL (9.8-20.1); Bilirubin, Total 0.4 mg/dL (0.2-1.2); Calc. Creatinine Clearance 52 mL/min (70-130); Calcium 8.1 mg/dL (7.8-10.44); Carbon Dioxide 28 mmol/L (23-31); Chloride 106 mmol/L (98-107); Estimated GFR-MDRD 45; Globulin 2.6 g/dL (2.4-3.5); Glucose 121 mg/dL (83-110); Potassium 4.9 mmol/L (3.5-5.1); Protein, Total 5.1 g/dL (6.0-8.3); Sodium 139 mmol/L (136-145)
[2020-05-22] MEDS: methylPREDNISolone Sod Succ 40 MG VIAL IVP SCH ×3 (05:21→17:09)
[2020-05-22 06:54] LABS: Hemoglobin 8.7 g/dL (12.0-16.0); Mean Corpuscular HGB CONC 31.4 g/dL (32.0-36.0); Mean Corpuscular Hemoglobin 27.6 pg (27.0-31.0); Mean Corpuscular Volume 87.9 fL (78.0-98.0); Mean Platelet Volume 7.6 fL (7.4-10.4); Platelet Count 351 thou/uL (130-400); RBC Distribution Width 14.4 % (11.5-14.5); Red Blood Cell (RBC) Count 3.15 mill/uL (4.20-5.40); White Blood Cell (WBC) Count 20.7 thou/uL (4.8-10.8)
--- NOTE | 2020-05-22 07:45 | PDOC.FM ---
- Subjective Subjective: Intubated and sedated. - Objective MAR Reviewed: Yes Vital Signs & Weight: Vital Signs (12 hours) Temp Pulse Resp BP Pulse Ox 05/22/20 06:54 76 129/63 05/22/20 06:52 76 24 H 100 05/22/20 06:00 24 H 05/22/20 04:00 98.4 F 20 05/22/20 02:22 74 22 H 100 05/22/20 02:00 20 05/22/20 00:00 98.6 F 18 05/21/20 22:00 29 H 05/21/20 21:51 78 21 H 100 05/21/20 20:00 97.8 F 18 99 Weight Admit Weight 72.892 kg Weight 86.5 kg Most Recent Monitor Data Heart Rate from ECG 75 NIBP 129/63 NIBP BP-Mean 85 Respiration from ECG 18 SpO2 100 I&O: 05/21/20 05/22/20 05/23/20 06:59 06:59 06:59 Intake Total 1929.7 2231 Output Total 1625 1555 Balance 304.7 676 Result Diagrams: 05/22/20 04:20 05/22/20 04:20 Phys Exam - Physical Examination Constitutional: NAD HEENT: PERRLA, moist MMs Neck: supple Respiratory: no wheezing, no rales, no rhonchi Diminished breath sounds bilaterally. Cardiovascular: RRR, no significant murmur Gastrointestinal: soft, non-tender Musculoskeletal: edema present Skin: no rash Deviation from normal: Weeping skin Dx/Plan (1) Sepsis due to pneumonia Code(s): J18.9 - PNEUMONIA, UNSPECIFIED ORGANISM; A41.9 - SEPSIS, UNSPECIFIED ORGANISM Status: Acute (2) Status post right knee replacement Code(s): Z96.651 - PRESENCE OF RIGHT ARTIFICIAL KNEE JOINT Status: Acute (3) Anemia Code(s): D64.9 - ANEMIA, UNSPECIFIED Status: Chronic Qualifiers: Anemia type: iron deficiency Iron deficiency anemia type: unspecified iron deficiency Qualified Code(s): D50.9 - Iron deficiency anemia, unspecified (4) Hypokalemia Code(s): E87.6 - HYPOKALEMIA Status: Acute (5) GERD (gastroesophageal reflux disease) Code(s): K21.9 - GASTRO-ESOPHAGEAL REFLUX DISEASE WITHOUT ESOPHAGITIS Status: Chronic (6) HLD (hyperlipidemia) Code(s): E78.5 - HYPERLIPIDEMIA, UNSPECIFIED Status: Chronic Qualifiers: Hyperlipidemia type: unspecified Qualified Code(s): E78.5 - Hyperlipidemia , unspecified (7) HTN (hypertension) Code(s): I10 - ESSENTIAL (PRIMARY) HYPERTENSION Status: Chronic Qualifiers: Hypertension type: unspecified Qualified Code(s): I10 - Essential (primary ) hypertension (8) Osteoarthritis Code(s): M19.90 - UNSPECIFIED OSTEOARTHRITIS, UNSPECIFIED SITE Status: Chronic Qualifiers: Osteoarthritis location: multiple joints Osteoarthritis type: primary Qualified Code(s): M89.49 - Other hypertrophic osteoarthropathy, multiple sites - Plan Plan: Acute hypoxic respiratory failure and sepsis 2/2 Atypical PNA - Intubated 05/15/2020. - Pulmonology consulted, appreciate recommendations. Attempting to wean ventilator. - Palliative care consulted, appreciate assistance. Family changed code status to DNAR 05/18. Per family meeting 05/19 and conversation 05/20, family DOES NOT want trach/ peg. If she is unweanable from ventilator next week we will discuss extubation and palliative care. Family discussion 05/21 decided to continue mechanical ventilation through the weekend with the intent of weaning, if she is unweanable family would like to compassionately extubate and move to hospice care Sunday. - Discontinued: Cefepime (05/12-05/19) and Azithromycin (05/14-05/20). Vancomycin ordered, however renal function won't tolerate. (Received 2 doses) -Continues to be slightly fluid overloaded, lasix x 2 doses 05/21 and 05/22 Anemia - s/p 1u PRBC 05/19. Acute kidney injury, stable, improving. Hyperkalemia -resolved HTN, HLD -hold home meds GERD -famotidine S/P Right Knee Replacement -surgery on 04/[address] Pierre at [facility] Diet: On tube feeds DVT ppx: Lovenox GI ppx: Famotidine Code: DNAR PCP: Marilynn Dispo: Inpatient, CCU. Guarded prognosis.
[2020-05-22 08:26] LABS: Band 2 % (5-11); Lymphocytes 11 % (21-51); MDiff Complete? YES; Monocytes 3 % (0-10); Neutrophil 84 % (42-75)
--- NOTE | 2020-05-22 08:30 | RAD ---
SINGLE VIEW CHEST: Date: 05/22/2020 COMPARISON: 05/21/2020. HISTORY: Pneumonia. FINDINGS: Single view of the chest shows normal sized cardiomediastinal silhouette. The endotracheal tube and N G tube are unchanged in position. There are stable multifocal infiltrates. IMPRESSION: Stable multifocal pneumonia. POS: EAA
--- NOTE | 2020-05-22 09:21 | PRG ---
DATE OF SERVICE: 05/22/2020 SUBJECTIVE: An 84-year-old female remains intubated in the vent, sedated. OBJECTIVE: VITAL SIGNS: Pulse 76, blood pressure 129/66, sats 100% positive. CHEST: Decreased breath sounds. Minimal crackles. No wheezing. CARDIAC: Normal S1, S2. No gallops. ABDOMEN: Soft. NEUROLOGIC: She is sedated. LABORATORY DATA: Creatinine is 1, BUN 71, and white count 20,000. X-ray shows bibasilar atelectatic changes. I do not see any blood gas, but yesterday her PO2 was 92, pCO2 of 45 IMPRESSION: Respiratory failure, bilateral pneumonia, severe deconditioning, culture negative, advanced age, azotemia. Vent being adjusted. Continue to minimize sedation and continue steroids. Family to make a decision in next week regarding comfort care. One-half hour of critical time. Job ID: [id number]
[2020-05-22] MEDS ORDERED: Furosemide 20 MG/2 ML VIAL SLOW IVP SCH (10:15)
[2020-05-22] MEDS: Famotidine/PF 20 mg/2ml Vial SLOW IVP SCH (10:47)
[2020-05-22] MEDS: Enoxaparin Sodium 40 MG/0.4 ML SYRINGE SC SCH (10:49)
[2020-05-22] MEDS: cefTRIAXone\\ROCEPHIN 1 GM in Sodium Chloride 0.9% 100 ML IVPB SCH (10:49)
[2020-05-22] MEDS: fentaNYL Citrate/PF 2,000 MCG in Sodium Chloride 0.9% 60 ML IV SCH (15:05)
--- NOTE | 2020-05-22 17:50 | PRG ---
DATE OF SERVICE: 05/22/2020 Please see the note done by Dr. Rivera for which I agree. The patient was seen, evaluated, discussed, and examined with the residents at bedside. The patient is now day of admission #10, still on a ventilator. No major changes and it sounds like the family has decided to try to fairly aggressively see if we can get her extubated this weekend and if not, then we will elect for potentially terminal extubation on Sunday as she is a very poor prognosis at this point in time with her pneumonia and sepsis and prolonged intubation at age 84. We will continue supportive care and see if we can wean her off the ventilator in the next couple of days. Job ID: [id number]
[2020-05-23] MEDS: methylPREDNISolone Sod Succ 40 MG VIAL IVP SCH ×5 (00:44→23:51)
[2020-05-23] MEDS: Propofol 1,000 MG/100 ML VIAL IV PRN ×4 (05:24→23:50)
--- NOTE | 2020-05-23 06:04 | PDOC.FM ---
- Subjective Subjective: Intubated and sedated. - Objective MAR Reviewed: Yes Vital Signs & Weight: Vital Signs (12 hours) Temp Pulse Resp BP Pulse Ox 05/23/20 04:00 98.8 F 22 H 05/23/20 02:36 92 127/77 05/23/20 02:00 22 H 05/23/20 00:00 98.7 F 18 05/22/20 22:00 18 05/22/20 21:54 97 146/93 H 05/22/20 20:00 98.9 F 97 05/22/20 18:28 78 128/68 Weight Admit Weight 72.892 kg Weight 86.5 kg Most Recent Monitor Data Heart Rate from ECG 101 NIBP 148/84 NIBP BP-Mean 105 Respiration from ECG 19 SpO2 97 I&O: 05/21/20 05/22/20 05/23/20 06:59 06:59 06:59 Intake Total 1929.7 2231 922.2 Output Total 1625 1555 2036 Balance 304.7 676 -1113.8 Result Diagrams: 05/23/20 05:34 05/23/20 05:34 Phys Exam - Physical Examination Constitutional: NAD HEENT: moist MMs Neck: no JVD, supple Respiratory: no wheezing, no rales, no rhonchi, clear to auscultation bilateral Cardiovascular: RRR, no significant murmur Gastrointestinal: soft, non-tender Musculoskeletal: edema present Skin: no rash, normal turgor Dx/Plan (1) Sepsis due to pneumonia Code(s): J18.9 - PNEUMONIA, UNSPECIFIED ORGANISM; A41.9 - SEPSIS, UNSPECIFIED ORGANISM Status: Acute (2) Status post right knee replacement Code(s): Z96.651 - PRESENCE OF RIGHT ARTIFICIAL KNEE JOINT Status: Acute (3) Anemia Code(s): D64.9 - ANEMIA, UNSPECIFIED Status: Chronic Qualifiers: Anemia type: iron deficiency Iron deficiency anemia type: unspecified iron deficiency Qualified Code(s): D50.9 - Iron deficiency anemia, unspecified (4) Hypokalemia Code(s): E87.6 - HYPOKALEMIA Status: Acute (5) GERD (gastroesophageal reflux disease) Code(s): K21.9 - GASTRO-ESOPHAGEAL REFLUX DISEASE WITHOUT ESOPHAGITIS Status: Chronic (6) HLD (hyperlipidemia) Code(s): E78.5 - HYPERLIPIDEMIA, UNSPECIFIED Status: Chronic Qualifiers: Hyperlipidemia type: unspecified Qualified Code(s): E78.5 - Hyperlipidemia , unspecified (7) HTN (hypertension) Code(s): I10 - ESSENTIAL (PRIMARY) HYPERTENSION Status: Chronic Qualifiers: Hypertension type: unspecified Qualified Code(s): I10 - Essential (primary ) hypertension (8) Osteoarthritis Code(s): M19.90 - UNSPECIFIED OSTEOARTHRITIS, UNSPECIFIED SITE Status: Chronic Qualifiers: Osteoarthritis location: multiple joints Osteoarthritis type: primary Qualified Code(s): M89.49 - Other hypertrophic osteoarthropathy, multiple sites - Plan Plan: Acute hypoxic respiratory failure and sepsis 2/2 Atypical PNA - Intubated 05/15/2020. - Pulmonology consulted, appreciate recommendations. Attempting to wean ventilator. - Palliative care consulted, appreciate assistance. Family changed code status to DNAR 05/18. Per family meeting 05/19 and conversation 05/20, family DOES NOT want trach/ peg. If she is unweanable from ventilator next week we will discuss extubation and palliative care. Family discussion 05/21 decided to continue mechanical ventilation through the weekend with the intent of weaning, if she is unweanable family would like to compassionately extubate and move to hospice care likely Sunday. Stable, no interval change from yesterday. Breathing over ventilator, 20RPM. Intermitten tachycardia. - Discontinued: Cefepime (05/12-05/19) and Azithromycin (05/14-05/20). Vancomycin ordered, however renal function won't tolerate. (Received 2 doses) Anemia - s/p 1u PRBC 05/19. Acute kidney injury, stable, improving. Hyperkalemia -resolved HTN, HLD -hold home meds GERD -famotidine S/P Right Knee Replacement -surgery on 04/[address] Pierre at [facility] Diet: On tube feeds DVT ppx: Lovenox GI ppx: Famotidine Code: DNAR PCP: Marilynn Dispo: Inpatient, CCU. Guarded prognosis.
[2020-05-23 06:06] LABS: ALT (SGPT) 129 U/L (8-55); AST (SGOT) 37 U/L (5-34); Albumin 2.8 g/dL (3.4-4.8); Alkaline Phosphatase 98 U/L (40-110); Anion Gap 12 mmol/L (10-20); BUN (Urea Nitrogen) 66 mg/dL (9.8-20.1); Bilirubin, Total 0.4 mg/dL (0.2-1.2); Calc. Creatinine Clearance 53 mL/min (70-130); Calcium 8.5 mg/dL (7.8-10.44); Carbon Dioxide 28 mmol/L (23-31); Chloride 105 mmol/L (98-107); Estimated GFR-MDRD 47; Globulin 2.8 g/dL (2.4-3.5); Glucose 132 mg/dL (83-110); Potassium 5.1 mmol/L (3.5-5.1); Protein, Total 5.6 g/dL (6.0-8.3); Sodium 140 mmol/L (136-145)
[2020-05-23] MEDS: fentaNYL Citrate/PF 2,000 MCG in Sodium Chloride 0.9% 60 ML IV SCH (06:32)
[2020-05-23 06:45] LABS: Anisocytosis SLIGHT = 6-15 cells (100X) (0-5/hpf); Band 3 % (5-11); Hemoglobin 10.1 g/dL (12.0-16.0); Lymphocytes 9 % (21-51); MDiff Complete? YES; Mean Corpuscular HGB CONC 31.9 g/dL (32.0-36.0); Mean Corpuscular Hemoglobin 28.4 pg (27.0-31.0); Mean Corpuscular Volume 89.1 fL (78.0-98.0); Mean Platelet Volume 7.5 fL (7.4-10.4); Monocytes 4 % (0-10); Neutrophil 84 % (42-75); Platelet Count 319 thou/uL (130-400); RBC Distribution Width 14.8 % (11.5-14.5); Red Blood Cell (RBC) Count 3.54 mill/uL (4.20-5.40); White Blood Cell (WBC) Count 19.7 thou/uL (4.8-10.8)
--- NOTE | 2020-05-23 09:15 | RAD ---
SINGLE VIEW CHEST: HISTORY: Pneumonia. COMPARISON: 05/22/20 FINDINGS: A single view of the chest shows an enlarged but stable cardiomediastinal silhouette. The endotrachea l tube and NG tube are unchanged in position. There are stable multifocal infiltrates in the lungs. IMPRESSION: Stable examination. POS: EAA
[2020-05-23] MEDS: Enoxaparin Sodium 40 MG/0.4 ML SYRINGE SC SCH (09:31)
[2020-05-23] MEDS: Famotidine/PF 20 mg/2ml Vial SLOW IVP SCH (09:31)
[2020-05-23] MEDS: cefTRIAXone\\ROCEPHIN 1 GM in Sodium Chloride 0.9% 100 ML IVPB SCH (09:32)
--- NOTE | 2020-05-23 15:38 | PRG ---
DATE OF SERVICE: 05/23/2020 SUBJECTIVE: An 84-year-old female, remains intubated on the vent. Still having some agonal respiration. Her I's and O's are negative. OBJECTIVE: VITAL SIGNS: Her pulse is 97, respiratory rate 25, sats 93%, blood pressure 150/81. I's and O's as noted negative. CHEST: Extensive rhonchi and crackles. CARDIAC: Normal S1 and S2. No gallops. ABDOMEN: No masses. LABORATORY DATA: Creatinine is 1, BUN 66. X-ray shows diffuse infiltrates. White count 19,000. All cultures are negative. IMPRESSION: Respiratory failure, congestive heart failure, DNR, advanced age, renal failure. She clearly is not weanable at this stage. Continue steroids, neb treatment. Day #10 on the vent. We will discuss with family. Prognosis remains poor. One-half hour of critical time. Job ID: [id number]
--- NOTE | 2020-05-23 15:57 | PRG ---
DATE OF SERVICE: 05/23/2020 The patient was seen, evaluated, discussed, and examined with the residents at bedside. Please see Dr. Rivera's note for which I agree. The patient has really no major change. I am trying to slowly wean her off the vent. As we are doing that, she is becoming a little more tachycardic. Question is can we continue the weaning process or will she just be terminally extubated tomorrow. Family has been notified of the extremely poor prognosis either way. Certainly appreciate Pulmonary's input on her. Unfortunately, just a very grave situation as she has spent so much time hypoxic and on the ventilator that the odds of recovery are almost zero. In the meantime, we will continue supportive care, same medications, tube feeds, and ventilation until the final determination of terminally extubating her or not is made. Job ID: [id number]
[2020-05-24] MEDS: Lorazepam 2 MG/ML VIAL SLOW IVP PRN ×2 (02:58→11:58)
[2020-05-24] MEDS: Propofol 1,000 MG/100 ML VIAL IV PRN ×2 (03:12→08:18)
[2020-05-24 05:03] LABS: #Eosinphils 0.1 thou/uL (0.0-0.7); #Lymphocytes 0.8 thou/uL (1.20-3.40); #Monocytes 1.1 thou/uL (0.11-0.59); %Basophils 0.2 % (0.0-1.0); %Eosinophils 0.9 % (0.0-10.0); %Lymphocytes 5.1 % (21.0-51.0); %Monocytes 7.1 % (0.0-10.0); %Neutrophils 86.8 % (42.0-75.0); Hemoglobin 8.3 g/dL (12.0-16.0); Mean Corpuscular HGB CONC 31.1 g/dL (32.0-36.0); Mean Corpuscular Hemoglobin 27.7 pg (27.0-31.0); Mean Platelet Volume 7.9 fL (7.4-10.4); Platelet Count 251 thou/uL (130-400); RBC Distribution Width 14.8 % (11.5-14.5); Red Blood Cell (RBC) Count 3.01 mill/uL (4.20-5.40)
[2020-05-24] MEDS: methylPREDNISolone Sod Succ 40 MG VIAL IVP SCH ×2 (05:43→11:16)
[2020-05-24 05:52] LABS: ALT (SGPT) 81 U/L (8-55); AST (SGOT) 34 U/L (5-34); Albumin 2.3 g/dL (3.4-4.8); Alkaline Phosphatase 79 U/L (40-110); Anion Gap 10 mmol/L (10-20); BUN (Urea Nitrogen) 66 mg/dL (9.8-20.1); Bilirubin, Total 0.3 mg/dL (0.2-1.2); Calc. Creatinine Clearance 60 mL/min (70-130); Calcium 8.1 mg/dL (7.8-10.44); Carbon Dioxide 30 mmol/L (23-31); Chloride 107 mmol/L (98-107); Estimated GFR-MDRD 58; Globulin 2.3 g/dL (2.4-3.5); Glucose 130 mg/dL (83-110); Potassium 5.1 mmol/L (3.5-5.1); Protein, Total 4.6 g/dL (6.0-8.3); Sodium 142 mmol/L (136-145)
--- NOTE | 2020-05-24 06:05 | PDOC.FM ---
- Subjective Subjective: Intubated and Sedated. - Objective MAR Reviewed: Yes Vital Signs & Weight: Vital Signs (12 hours) Temp Pulse Resp BP Pulse Ox 05/24/20 04:00 98.6 F 19 05/24/20 02:14 129 H 172/93 H 05/24/20 02:00 28 H 05/24/20 00:00 98.8 F 17 05/23/20 22:06 123 H 142/83 H 05/23/20 22:00 16 05/23/20 20:00 98.6 F 18 98 05/23/20 18:19 95 157/93 H Weight Admit Weight 72.892 kg Weight 80.9 kg Most Recent Monitor Data Heart Rate from ECG 87 NIBP 130/65 NIBP BP-Mean 86 Respiration from ECG 24 SpO2 100 I&O: 05/22/20 05/23/20 05/24/20 06:59 06:59 06:59 Intake Total 2231 1483.8 938.9 Output Total 1555 2211 1989 Balance 676 -727.2 -1051.1 Result Diagrams: 05/24/20 04:41 05/24/20 04:41 Phys Exam - Physical Examination Constitutional: NAD HEENT: PERRLA, moist MMs Neck: no JVD Respiratory: no wheezing, no rales Coarse breath sounds bilaterally. Rhonchi vs upper airway sounds present. Cardiovascular: RRR, no significant murmur Gastrointestinal: soft, non-tender Musculoskeletal: edema present Skin: no rash, normal turgor Dx/Plan (1) Sepsis due to pneumonia Code(s): J18.9 - PNEUMONIA, UNSPECIFIED ORGANISM; A41.9 - SEPSIS, UNSPECIFIED ORGANISM Status: Acute (2) Status post right knee replacement Code(s): Z96.651 - PRESENCE OF RIGHT ARTIFICIAL KNEE JOINT Status: Acute (3) Anemia Code(s): D64.9 - ANEMIA, UNSPECIFIED Status: Chronic Qualifiers: Anemia type: iron deficiency Iron deficiency anemia type: unspecified iron deficiency Qualified Code(s): D50.9 - Iron deficiency anemia, unspecified (4) Hypokalemia Code(s): E87.6 - HYPOKALEMIA Status: Acute (5) GERD (gastroesophageal reflux disease) Code(s): K21.9 - GASTRO-ESOPHAGEAL REFLUX DISEASE WITHOUT ESOPHAGITIS Status: Chronic (6) HLD (hyperlipidemia) Code(s): E78.5 - HYPERLIPIDEMIA, UNSPECIFIED Status: Chronic Qualifiers: Hyperlipidemia type: unspecified Qualified Code(s): E78.5 - Hyperlipidemia , unspecified (7) HTN (hypertension) Code(s): I10 - ESSENTIAL (PRIMARY) HYPERTENSION Status: Chronic Qualifiers: Hypertension type: unspecified Qualified Code(s): I10 - Essential (primary ) hypertension (8) Osteoarthritis Code(s): M19.90 - UNSPECIFIED OSTEOARTHRITIS, UNSPECIFIED SITE Status: Chronic Qualifiers: Osteoarthritis location: multiple joints Osteoarthritis type: primary Qualified Code(s): M89.49 - Other hypertrophic osteoarthropathy, multiple sites - Plan Plan: Acute hypoxic respiratory failure and sepsis 2/2 Atypical PNA - Intubated 05/15/2020. Day #10 of mechanical ventilation. - Pulmonology consulted, appreciate recommendations. Attempted to wean ventilator. - Palliative care consulted, appreciate assistance. Family discussion 05/21 decided to continue mechanical ventilation through the weekend with the intent of weaning, if she is unweanable family would like to compassionately extubate and move to hospice care likely today. - Will discuss compassionate extubation this afternoon with pulm and family. Anemia - s/p 1u PRBC 05/19. Acute kidney injury, stable, improving. Hyperkalemia -resolved HTN, HLD -hold home meds GERD -famotidine S/P Right Knee Replacement -surgery on 04/[address] Pierre at [facility] Diet: On tube feeds DVT ppx: Lovenox GI ppx: Famotidine Code: DNAR PCP: Marilynn Dispo: Inpatient, CCU. Guarded prognosis. Addendum - Attending - Attending Attestation Date/Time: 05/24/20 3580 I personally evaluated the patient and discussed the management with Dr. Rivera. I agree with the History, Examination, Assessment and Plan documented above with any addition or exceptions noted below. Patient has made no meaningful recovery over the weekend. She continues to require high vent support. Family meeting today to consider withdrawal of care. Pulm on board.
--- NOTE | 2020-05-24 08:16 | RAD ---
PORTABLE CHEST: HISTORY: Followup pneumonia. COMPARISON: 05/23/2020 exam. FINDINGS: Heart size is enlarged. Extensive bilateral infiltrates are stable. Endotracheal and NG tubes are u nchanged in position. IMPRESSION: Stable bilateral infiltrates. POS: NOAH
[2020-05-24] MEDS: cefTRIAXone\\ROCEPHIN 1 GM in Sodium Chloride 0.9% 100 ML IVPB SCH (08:19)
[2020-05-24] MEDS: Enoxaparin Sodium 40 MG/0.4 ML SYRINGE SC SCH (08:20)
[2020-05-24] MEDS: Famotidine/PF 20 mg/2ml Vial SLOW IVP SCH (08:20)
--- NOTE | 2020-05-24 10:56 | PRG ---
DATE OF SERVICE: 05/24/2020 SUBJECTIVE: Remains intubated in the vent, sedated. OBJECTIVE: VITAL SIGNS: Temperature 98, pulse 74, blood pressure 105/52, on 50%, his sats are 97%. She is unresponsive. Her I's and O's have been negative. CHEST: Bilateral rhonchi, crackles. CARDIAC: Normal S1, S2. No gallops. ABDOMEN: No masses. LABORATORY DATA: Her lytes are improved. Renal function is stabilized. Glucose 130. White count 15,000. Cultures are negative. X-ray still shows rather extensive bilateral pulmonary infiltrates. ASSESSMENT: Respiratory failure, bronchopneumonia, congestive heart failure, and renal failure. PLAN: She is not weanable at this stage. Unfortunately, she is a DNR. Family is going to make a decision about comfort care, extubation. Her overall prognosis remains guarded. In the meantime, we will continue antibiotics. TIME SPENT: One-half hour of critical care time. Job ID: [id number]
[2020-05-24] MEDS ORDERED: Morphine 10 MG/ML VIAL SLOW IVP PRN (11:33)
[2020-05-24] MEDS ORDERED: Scopolamine 1.5 mg/72 hour Patch TD SCH (11:45)
[2020-05-24] MEDS ORDERED: Hyoscyamine Sulfate SL 0.125 mg Tablet SL PRN (15:36)
[2020-05-24] MEDS ORDERED: Ondansetron PF 4 MG/2 ML Vial IVP PRN (15:36)
[2020-05-24] MEDS ORDERED: Scopolamine 1.5 mg/72 hour Patch TD PRN (15:36)
[2020-05-24] MEDS ORDERED: diphenhydrAMINE 50 MG/ML VIAL IVP PRN (15:36)
[2020-05-24] MEDS ORDERED: Labetalol HCl 100 MG/20 ML VIAL SLOW IVP PRN (15:39)
[2020-05-24] MEDS ORDERED: Morphine 2 MG/ML VIAL SLOW IVP PRN (15:40)
[2020-05-25 06:58] VITALS: TEMP 98.7
--- NOTE | 2020-05-25 08:27 | PDOC.FM ---
- Subjective Subjective: Sleeping comfortably. - Objective MAR Reviewed: Yes Vital Signs & Weight: Vital Signs (12 hours) Temp Pulse Resp BP Pulse Ox 05/25/20 06:56 98.7 F 104 H 16 80/59 L 48 L Weight Admit Weight 72.892 kg Weight 81.193 kg Most Recent Monitor Data Heart Rate from ECG 102 NIBP 114/60 NIBP BP-Mean 78 Respiration from ECG 27 SpO2 100 I&O: 05/24/20 05/25/20 05/26/20 06:59 06:59 06:59 Intake Total 1653.9 Output Total 2340 1140 Balance -686.1 -1140 Result Diagrams: 05/24/20 04:41 05/24/20 04:41 Phys Exam - Physical Examination Constitutional: NAD HEENT: moist MMs Neck: supple Coarse breath sounds bilaterally. Rhonchi in bases. Tachycardic, no MGR Gastrointestinal: soft, non-tender Musculoskeletal: edema present Non-responsive. Deviation from normal: Skin weeping on hands/arms. Dx/Plan (1) Sepsis due to pneumonia Code(s): J18.9 - PNEUMONIA, UNSPECIFIED ORGANISM; A41.9 - SEPSIS, UNSPECIFIED ORGANISM Status: Acute (2) Status post right knee replacement Code(s): Z96.651 - PRESENCE OF RIGHT ARTIFICIAL KNEE JOINT Status: Acute (3) Anemia Code(s): D64.9 - ANEMIA, UNSPECIFIED Status: Chronic Qualifiers: Anemia type: iron deficiency Iron deficiency anemia type: unspecified iron deficiency Qualified Code(s): D50.9 - Iron deficiency anemia, unspecified (4) Hypokalemia Code(s): E87.6 - HYPOKALEMIA Status: Acute (5) GERD (gastroesophageal reflux disease) Code(s): K21.9 - GASTRO-ESOPHAGEAL REFLUX DISEASE WITHOUT ESOPHAGITIS Status: Chronic (6) HLD (hyperlipidemia) Code(s): E78.5 - HYPERLIPIDEMIA, UNSPECIFIED Status: Chronic Qualifiers: Hyperlipidemia type: unspecified Qualified Code(s): E78.5 - Hyperlipidemia , unspecified (7) HTN (hypertension) Code(s): I10 - ESSENTIAL (PRIMARY) HYPERTENSION Status: Chronic Qualifiers: Hypertension type: unspecified Qualified Code(s): I10 - Essential (primary ) hypertension (8) Osteoarthritis Code(s): M19.90 - UNSPECIFIED OSTEOARTHRITIS, UNSPECIFIED SITE Status: Chronic Qualifiers: Osteoarthritis location: multiple joints Osteoarthritis type: primary Qualified Code(s): M89.49 - Other hypertrophic osteoarthropathy, multiple sites - Plan Plan: Acute hypoxic respiratory failure and sepsis 2/2 Atypical PNA - Compassionately extubated 05/24 @ approximately 1330. - Breathing shallowly and rapidly. - Hospice care being provided inpatient, will consult for external hospice agency for management. Anemia - s/p 1u PRBC 05/19. Acute kidney injury, stable, improving. Hyperkalemia -resolved HTN, HLD -hold home meds GERD -famotidine S/P Right Knee Replacement -surgery on 04/[address] Pierre at [facility] Diet: On tube feeds DVT ppx: Lovenox GI ppx: Famotidine Code: DNAR PCP: Marilynn Dispo: Inpatient, hospice care. Addendum - Attending - Attending Attestation Date/Time: 05/25/20 1162 I personally evaluated the patient and discussed the management with Dr. Rivera. I agree with the History, Examination, Assessment and Plan documented above with any addition or exceptions noted below. Hospice and comfort measures.
--- NOTE | 2020-05-25 11:54 | PRG ---
DATE OF SERVICE: 05/25/2020 SUBJECTIVE: Estelle Villasenor was extubated yesterday for comfort care. She is in labored respiration, sats are low, temperature 98, pulse 104, and blood pressure 80/59. Several family members in the room. IMPRESSION: Respiratory failure, terminal extubation, advanced age. She is a DNR and comfort care. Pulmonary follow at a distance. Job ID: [id number]
[2020-05-25 12:47] VITALS: BP 89/57
--- NOTE | 2020-05-26 14:33 | DIS ---
DATE OF ADMISSION: 05/12/2020 DATE OF DISCHARGE: 05/25/2020 DATE OF : 05/25/2020. TIME OF : 1515 hours. RESIDENT: Ana Rivera MD DISCHARGE ATTENDING: Vince Pizano MD. CAUSE OF : Acute hypoxic respiratory failure secondary to likely viral atypical pneumonia. SECONDARY DIAGNOSES: 1. Pneumonia. 2. Right knee replacement. 3. Anemia. 4. Hypertension. 5. Hyperlipidemia. 6. Gastroesophageal reflux disease. 7. Osteoarthritis. 8. Chronic back pain. HOSPITAL COURSE: Ms. Villasenor was an 84-year-old female who presented to the hospital from inpatient rehab for evaluation of an O2 saturation of 69%. The person taking her vitals noted her to be tachypneic with a respiratory rate in the 30s and hypoxic with an O2 saturation of 69%. They initially placed her on nasal cannula oxygen and her saturations improved to the low 80s when she was then upgraded to a Venti mask at 14 L and she was able to improve to the upper 80s. They decided to transfer her to the ER for evaluation. She was transferred to [facility] and was placed on the telemetry floor and started on antibiotics for pneumonia. She was tested for COVID-19 on the , and with a rapid test and antibody test and that was found to be negative. A respiratory viral panel was done, which was also negative. Blood culture grew out contaminant. She subsequently declined as far as her respiratory status and was transferred to the ICU on the after she desaturated on high-flow nasal cannula. They put the patient on BiPAP, which she subsequently failed and then was intubated. We continued treating her for pneumonia for a total of 7 or 8 days and did not notice significant improvement in her chest x-rays. She continued to decline from a respiratory standpoint and was not able to be weaned. Over the course of her illness, multiple family conferences were held to discuss options with family members. When presented with the options going forward, the family decided to move toward hospice palliative care and she was to compassionately extubated on 05/25/2020. Job ID: [id number] MTDD
== END 2020-05-25 15:15 | disposition expired | DRG 870 ==
LOC: ERS 10:07 → T4-B 11:54 → IMCU/EMU 05-13 11:45 → CCU 05-15 09:18 → T4-A 05-24 15:02
PROVIDERS: ADMIT Student in an Organized Health Care Education/Training Program; ATTEND Student in an Organized Health Care Education/Training Program
PROC: 5A1955Z Respiratory Ventilation, Greater than 96 Consecutive Hours (ICD-10-PCS; principal; 2020-05-15)
PROC: 5A09357 Assistance with Respiratory Ventilation, Less than 24 Consecutive Hours, Continuous Positive Airway Pressure (ICD-10-PCS; 2020-05-15)
PROC: 0BH18EZ Insertion of Endotracheal Airway into Trachea, Via Natural or Artificial Opening Endoscopic (ICD-10-PCS; 2020-05-15)
PROC: 30233N1 Transfusion of Nonautologous Red Blood Cells into Peripheral Vein, Percutaneous Approach (ICD-10-PCS; 2020-05-19)
DX: A41.89 Other specified sepsis (principal); J80 Acute respiratory distress syndrome; J12.9 Viral pneumonia, unspecified; E87.2 Acidosis; N39.0 Urinary tract infection, site not specified; N17.9 Acute kidney failure, unspecified; I13.0 Hypertensive heart and chronic kidney disease with heart failure and stage 1 through stage 4 chronic kidney disease, or unspecified chronic kidney disease; Z66 Do not resuscitate; Z51.5 Encounter for palliative care; Z20.828 Contact with and (suspected) exposure to other viral communicable diseases; L89.151 Pressure ulcer of sacral region, stage 1; E78.00 Pure hypercholesterolemia, unspecified; K21.9 Gastro-esophageal reflux disease without esophagitis; M54.9 Dorsalgia, unspecified; G89.29 Other chronic pain; Z96.653 Presence of artificial knee joint, bilateral; D50.0 Iron deficiency anemia secondary to blood loss (chronic); N18.9 Chronic kidney disease, unspecified; I50.9 Heart failure, unspecified; M89.49 Other hypertrophic osteoarthropathy, multiple sites; R34 Anuria and oliguria; E87.5 Hyperkalemia; Z88.2 Allergy status to sulfonamides; Z88.8 Allergy status to other drugs, medicaments and biological substances; Z79.82 Long term (current) use of aspirin; Z79.899 Other long term (current) drug therapy; Z79.4 Long term (current) use of insulin; Z90.49 Acquired absence of other specified parts of digestive tract
CPT/HCPCS: 36415; 36416; 36430; 51701; 71045; 71275; 80053; 80202; 81003; 82805; 83605; 84145; 85025; 85610; 85730; 86769; 86850; 86900; 86901; 87040; 87149; 87633; 87899; 93005; 93010; 93306; 94002; 94003; 94640; 94760; 96365; 96367; 96375; J0456; J0692; J0696; J1100; J1650; J1940; J2060; J2270; J2405; J2704; J2920; J3010; J3370; J3490; J7050; J7620; P9016; Q9967; S0028; U0002